=== PATIENT | female | born 1950 | race Caucasian/White ===

== ENCOUNTER 2017-01-31 06:28 | Emergency (ER) | payer MEDICARE ==
[2017-01-31] MEDS ORDERED: HYDROMORPHONE HCL INJ/PF 2 MG/ML AMPULE IV ONE (08:44)
[2017-01-31] MEDS ORDERED: DIAZEPAM 2 MG TABLET PO ONE (08:45)
--- NOTE | 2017-01-31 08:45 | ER Document Report ---
ED General - General Chief Complaint: Leg Pain Stated Complaint: LEFT SIDE PAIN Time Seen by Provider: 01/31/17 07:46 Mode of Arrival: Ambulatory Information source: Patient Notes: 66-year-old female history of paroxysmal sinus tachycardia presents with complaints of left hip pain. Patient notes that she has been ambulating all day yesterday this morning she had severe pain in her groin pain down her leg. Patient denies any other ocncerns. admits ot hx of edema in the lwoer extremities TRAVEL OUTSIDE OF THE [place] IN LAST 30 DAYS: No - HPI Onset: Just prior to arrival Onset/Duration: Sudden Quality of pain: Sharp Severity: Moderate Pain Level: 2 Associated symptoms: Body/muscle aches, Leg swelling Exacerbated by: Movement Relieved by: Denies Similar symptoms previously: No Recently seen / treated by doctor: No - Related Data Allergies/Adverse Reactions: No Known Allergies Allergy (Verified 01/31/17 08:21) Home Medications: Current Home Medications Ergocalciferol (Vitamin D2) [Vitamin D] 400 unit PO DAILY 01/31/17 [History] Ferrous Sulfate [Iron] 325 mg PO DAILY 01/31/17 [History] Furosemide [Furosemide] 40 mg PO DAILY 01/31/17 [History] Melatonin/Pyridoxine HCl (B6) [Melatonin 5 mg Tablet] 1 each PO QHS 01/31/17 [ History] Past Medical History - Social History Smoking Status: Never Smoker Cigarette use (# per day): No Chew tobacco use (# tins/day): No Smoking Education Provided: No Frequency of alcohol use: None Drug Abuse: None Family History: Arthritis, DM, Hyperlipidemia, Hypertension, Malignancy Patient has suicidal ideation: No Patient has homicidal ideation: No - Past Medical History Cardiac Medical History: Reports: Hx Coronary Artery Disease, Hx Hypercholesterolemia, Hx Hypertension Denies: Hx Heart Attack Pulmonary Medical History: Denies: Hx Asthma, Hx Bronchitis, Hx COPD, Hx Pneumonia Neurological Medical History: Denies: Hx Cerebrovascular Accident, Hx Seizures Endocrine Medical History: Reports: Hx Diabetes Mellitus Type 2 Renal/ Medical History: Denies: Hx Peritoneal Dialysis Musculoskeltal Medical History: Reports Hx Arthritis - NECK, BACK, Reports Hx Musculoskeletal Deformity, Reports Hx Musculoskeletal Trauma Past Surgical History: Reports: Hx Appendectomy, Hx Breast Surgery - left lumpectomy. Denies: Hx Hysterectomy - Immunizations Hx Diphtheria, Pertussis, Tetanus Vaccination: Yes - 2006 Review of Systems - Review of Systems Notes: REVIEW OF SYSTEMS: CONSTITUTIONAL : Denies fever, chills, or sweats. Denies recent illness. EENT: Denies eye, ear, throat, or mouth pain or symptoms. Denies nasal or sinus congestion or discharge. Denies throat, tongue, or mouth swelling or difficulty swallowing. CARDIOVASCULAR: Admits irregular heart rate admits to chronic edema of the lower extremities RESPIRATORY: Denies cough, cold, or chest congestion. Denies shortness of breath, difficulty breathing, or wheezing. GASTROINTESTINAL: Denies abdominal pain or distention. Denies nausea, vomiting , or diarrhea. Denies blood in vomitus, stools, or per rectum. Denies black, tarry stools. Denies constipation. GENITOURINARY: Denies difficulty urinating, painful urination, burning, frequency, blood in urine, or discharge. FEMALE GENITOURINARY: Denies vaginal bleeding, heavy or abnormal periods, irregular periods. Denies vaginal discharge or odor. MUSCULOSKELETAL: Admits to left hip pain SKIN: Denies rash, lesions or sores. HEMATOLOGIC : Denies easy bruising or bleeding. LYMPHATIC: Denies swollen, enlarged glands. NEUROLOGICAL: Denies confusion or altered mental status. Denies passing out or loss of consciousness. Denies dizziness or lightheadedness. Denies headache. Denies weakness or paralysis or loss of use of either side. Denies problems with gait or speech. Denies sensory loss, numbness, or tingling. Denies seizures. PSYCHIATRIC: Denies anxiety or stress. Denies depression, suicidal ideation, or homicidal ideation. ALL OTHER SYSTEMS REVIEWED AND NEGATIVE. PHYSICAL EXAMINATION: GENERAL: Well-appearing, well-nourished and in no acute distress. HEAD: Atraumatic, normocephalic. EYES: Pupils equal round and reactive to light, extraocular movements intact, conjunctiva are normal. ENT: Nares patent, oropharynx clear without exudates. Moist mucous membranes. NECK: Normal range of motion, supple without lymphadenopathy LUNGS: Breath sounds clear to auscultation bilaterally and equal. No wheezes rales or rhonchi. HEART: Regular rate and rhythm without murmurs ABDOMEN: Soft, nontender, nondistended abdomen. No guarding, no rebound. No masses appreciated. Female : deferred Musculoskeletal: +3 pitting edema bilateral lower extremities patient unable to flex or extend her left hip due to pain NEUROLOGICAL: Cranial nerves grossly intact. Normal speech, normal gait. Normal sensory, motor exams PSYCH: Normal mood, normal affect. SKIN: Warm, Dry, normal turgor, no rashes or lesions noted. Dictation was performed using [employer] voice recognition software Physical Exam - Vital signs Vitals: Temp Pulse Resp BP Pulse Ox 97.4 F 69 18 158/71 H 99 01/31/17 06:31 01/31/17 06:31 01/31/17 06:31 01/31/17 06:31 01/31/17 06:31 Course - Re-evaluation Re-evalutation: 01/31/17 08:45 Patient has probable hip pain secondary to ambulating all day yesterday however given the edema history of irregular heart rate and ultrasound is appropriate for rule out DVT 01/31/17 12:08 X-ray noted no significant abnormality, Doppler was negative. Patient noted to have mild renal insufficiency mild anemia, reports have been given to the patient. Otherwise it appears the pain only worsens with movement. Patient will be given follow-up instructions with primary care physician in stable for discharge After performing a Medical Screening Examination, I estimate there is LOW risk for INTRACRANIAL HEMORRHAGE, UNSTABLE SPINE FRACTURE, CENTRAL CORD SYNDROME, CAUDA EQUINA, THORACIC AORTIC DISSECTION, PNEUMOTHORAX, PERFORATED BOWEL, RUPTURED ABDOMINAL AORTIC ANEURYSM, ACUTE TENDON RUPTURE, COMPARTMENT SYNDROME, or OPEN FRACTURE, thus I consider the discharge disposition reasonable. Also, there is no evidence or peritonitis, sepsis, or toxicity. I have reevaluated this patient multiple times and no significant life threatening changes are noted. The patient and I have discussed the diagnosis and risks, and we agree with discharging home to follow-up with their primary doctor with the understanding that symptoms and presentations can change. We also discussed returning to the Emergency Department immediately if new or worsening symptoms occur. We have discussed the symptoms which are most concerning (e.g., bloody stool, fever, changing or worsening pain, vomiting) that necessitate immediate return. - Vital Signs Vital signs: Temp Pulse Resp BP Pulse Ox 97.4 F 69 18 158/71 H 99 01/31/17 06:31 01/31/17 06:31 01/31/17 06:31 01/31/17 06:31 01/31/17 06:31 - Laboratory Result Diagrams: 01/31/17 08:39 01/31/17 08:39 Laboratory results interpreted by me: 01/31/17 01/31/17 08:39 08:39 RBC 3.44 L Hgb 9.2 L Hct 27.6 L MCH 26.6 L RDW 15.8 H BUN 68 H Creatinine 1.89 H Est GFR ( Amer) 32 L Est GFR (Non-Af Amer) 27 L Glucose 131 H AST 12 L Digoxin 0.65 L - Diagnostic Test Radiology reviewed: Image reviewed, Reports reviewed Discharge - Discharge Clinical Impression: Acute renal insufficiency Hip pain Qualifiers: Laterality: left Qualified Code(s): M25.552 - Pain in left hip Anemia Qualifiers: Anemia type: other cause Other causes of anemia: other cause, not classified Qualified Code(s): D64.89 - Other specified anemias Condition: Stable Disposition: HOME, SELF-CARE Instructions: Anemia ([facility]), Kidney Function Abnormality ([facility]) Prescriptions: Diazepam [Valium 5 mg Tablet] 5 mg PO QIDP PRN #15 tablet PRN Reason: Oxycodone HCl/Acetaminophen [Percocet 5-325 mg Tablet] 1 - 2 tab PO Q4H PRN #15 tablet PRN Reason: Referrals: COLT MINOR PA-C [Primary Care Provider] - Follow up tomorrow
[2017-01-31 08:53] LABS: ABSOLUTE BASOPHILS # (AUTO) 0.1 10^3/uL (0.0-0.2); ABSOLUTE EOSINOPHILS # (AUTO) 0.2 10^3/uL (0.0-0.6); ABSOLUTE LYMPHOCYTES (AUTO) 1.3 10^3/uL (0.5-4.7); ABSOLUTE MONOCYTES (AUTO) 0.7 10^3/uL (0.1-1.4); ABSOLUTE NEUT (AUTO) 6.9 10^3/uL (1.7-8.2); BASOPHILS % (AUTO) 0.8 % (0-2); EOSINOPHILS % (AUTO) 1.7 % (0-6); HEMATOCRIT 27.6 % (36.0-47.0); HEMOGLOBIN 9.2 g/dL (12.0-15.5); LYMPHOCYTES % (AUTO) 14.5 % (13-45); MEAN CORPUSCULAR HEMOGLOBIN 26.6 pg (27.0-33.4); MEAN CORPUSCULAR HGB CONC 33.2 g/dL (32.0-36.0); MEAN CORPUSCULAR VOLUME 80 fl (80-97); MONOCYTES % (AUTO) 7.9 % (3-13); RED BLOOD COUNT 3.44 10^6/uL (3.72-5.28); RED CELL DISTRIBUTION WIDTH 15.8 % (11.5-14.0); SEGMENTED NEUTROPHILS % (AUTO) 75.1 % (42-78); WHITE BLOOD COUNT 9.2 10^3/uL (4.0-10.5)
[2017-01-31 09:13] LABS: ALANINE AMINOTRANSFERASE 20 U/L (9-52); ALBUMIN 3.7 g/dL (3.5-5.0); ALKALINE PHOSPHATASE 91 U/L (38-126); ANION GAP 12 (5-19); ASPARTATE AMINO TRANSFERASE 12 U/L (14-36); BILIRUBIN,DIRECT 0.3 mg/dL (0.0-0.4); BILIRUBIN,TOTAL 0.4 mg/dL (0.2-1.3); BLOOD UREA NITROGEN 68 mg/dL (7-20); CALCIUM 9.2 mg/dL (8.4-10.2); CARBON DIOXIDE 27 mmol/L (22-30); CHLORIDE 99 mmol/L (98-107); CREATININE RESULT 1.89 mg/dL (0.52-1.25); DIGOXIN 0.65 ng/mL (0.8-2.0); GLUCOSE 131 mg/dL (75-110); POTASSIUM 4.1 mmol/L (3.6-5.0); SODIUM 137.5 mmol/L (137-145); TOTAL PROTEIN 6.8 g/dL (6.3-8.2)
--- NOTE | 2017-01-31 09:14 | RADIOLOGY REPORT (SQ) ---
EXAM DESCRIPTION: HIP LEFT AP/LATERAL COMPLETED DATE/TIME: 01/31/2017 9:06 am REASON FOR STUDY: hip pain COMPARISON: None. NUMBER OF VIEWS: Two views. TECHNIQUE: AP pelvis and additional frog-leg view of the left hip. LIMITATIONS: None. FINDINGS: MINERALIZATION: Normal. LEFT HIP: No fracture or dislocation. No worrisome bone lesions. RIGHT HIP: No fracture or dislocation. No worrisome bone lesions. PUBIS AND ISCHIUM: No fracture. PELVIS: No fracture. SACRUM: No fracture or dislocation. No worrisome bone lesions. LOWER LUMBAR SPINE: No fracture or dislocation. No worrisome bone lesions. No significant disc disea se. SOFT TISSUES: No findings. OTHER: No other significant finding. IMPRESSION: NEGATIVE STUDY OF THE LEFT HIP AND PELVIS. NO RADIOGRAPHIC EVIDENCE OF ACUTE INJURY. TECHNICAL DOCUMENTATION: JOB ID: [id number] [employer]- All Rights Reserved
[2017-01-31] MEDS ORDERED: NORMAL SALINE 1000 ML 1,000 ML IV ONE (10:54)
[2017-01-31] MEDS ORDERED: KETOROLAC TROMETHAMINE INJ/PF 30 MG/1 ML SDV IV ONE (12:08)
[2017-01-31 12:37] VITALS: BP 153/64
--- NOTE | 2017-01-31 18:49 | XCELERA REPORT ---
[address] [address] Lower Extremity Venous Evaluation Name: ARUNA ALLEN Age: 66 yrs Gender: Female : 1950 Patient Status: Emergency Patient Location: ER Study Date: 01/31/2017 10:35 AM Procedure: Color flow and duplex imaging of the veins of the left lower extremity as well as the right Common Femoral vein. Reason For Study: left leg pain Ordering Physician: CHAN JARVIS Performed By: Salena Zhang Right Sided Venous Evaluation The right common femoral vein is fully compressible. Spontaneous and phasic flow is present in the right common femoral vein. Left Sided Venous Evaluation Normal vessel filling wall to wall, compression and augmentation as well as Colour flow down to the infrageniculate veins. Critical Findings Called in to the ER. Interpretation Summary No duplex evidence of DVT or obstruction in the left lower extremity nor in the right Common Femoral vein. : CHAN JARVIS > Samy Huerta
== END 2017-01-31 12:28 | disposition home or self-care (01) ==
LOC: ER 06:28
DX: M25.552 Pain in left hip (principal); N28.9 Disorder of kidney and ureter, unspecified; R00.0 Tachycardia, unspecified; M79.605 Pain in left leg; I25.10 Atherosclerotic heart disease of native coronary artery without angina pectoris; I10 Essential (primary) hypertension; E78.00 Pure hypercholesterolemia, unspecified; E11.9 Type 2 diabetes mellitus without complications; M19.90 Unspecified osteoarthritis, unspecified site; Z90.49 Acquired absence of other specified parts of digestive tract; Z82.61 Family history of arthritis; Z83.3 Family history of diabetes mellitus; Z80.9 Family history of malignant neoplasm, unspecified; Z82.49 Family history of ischemic heart disease and other diseases of the circulatory system; D64.89 Other specified anemias; R60.9 Edema, unspecified
CPT/HCPCS: 99284; 96374; 96375; 36415; 80162; 85025; 80053; 93971 ×2; 73502; A9270; J1885; J1170; J7030; J3490

== ENCOUNTER → 2017-09-25 | Outpatient (CLI) | payer MEDICARE ==
--- NOTE | 2017-09-25 14:54 | WOMENS IMAGING REPORT ---
EXAM DESCRIPTION: 3D SCREENING MAMMO BILAT COMPLETED DATE/TIME: 09/25/2017 2:40 pm REASON FOR STUDY: ROUTINE SCREENING;Z12.31 Z12.31 ENCNTR SCREEN MAMMOGRAM FOR MALIGNANT NEOPLASM OF MICHAEL COMPARISON: None. TECHNIQUE: Standard craniocaudal and mediolateral oblique views of each breast recorded using digita l acquisition and breast tomosynthesis. LIMITATIONS: None. FINDINGS: RIGHT BREAST MASSES: No suspicious masses. CALCIFICATIONS: No new or suspicious calcifications. ARCHITECTURAL DISTORTION: None. DEVELOPING DENSITY: None. ASYMMETRY: None noted. OTHER: No other significant findings. LEFT BREAST MASSES: No suspicious masses. CALCIFICATIONS: No new or suspicious calcifications. ARCHITECTURAL DISTORTION: None. DEVELOPING DENSITY: Small vague density in the superior breast, located 4.5 to 6 cm from the nipple. Indistinct appearance on tomosynthesis images. ASYMMETRY: None noted. OTHER: No other significant findings. Read with the assistance of CAD. .[facility] - R2 Cenova Version 1.3 .[facility] Imaging - R2 Cenova Version 1.3 .[facility] - R2 Cenova Version 2.4 .[facility] - R2 Cenova Version 2.4 .[facility] - R2 [employer]ician Version 9.2 IMPRESSION: Small vague density in the superior left breast. No worrisome mammographic findings in the right breast. BREAST DENSITY: b. There are scattered areas of fibroglandular density. BIRAD: 0 Incomplete: Needs Additional Imaging Evaluation and/or prior Mammograms for Comparison. RECOMMENDATION: RECOMMENDED FOLLOW-UP: Recommend additional evaluation with compression breast tomos ynthesis views of the left breast and ultrasound of the left breast. Recommend routine screening khanh mography of the right breast. The patient will be contacted for additional imaging. COMMENT: The patient has been notified of the results by letter per SA requirements. Additional no tification policies are in place for contacting patient with suspicious or incomplete findings. Quality ID #225: The [employer] recommends an annual screening mammogram for women aged 40 years or over. This facility utilizes a reminder system to ensure that all patients receive reminder letters, and/or direct phone calls for appointments. This includes reminders for routine scr eening mammograms, diagnostic mammograms, or other Breast Imaging Interventions when appropriate. Th is patient will be placed in the appropriate reminder system. The [employer] (ACR) has developed recommendations for screening MRI of the breast s in certain patient populations, to be used in conjunction with mammography. Breast MRI surveillanc e may be appropriate for women with more than 20% lifetime risk of developing breast cancer as deter mined by genetic testing, significant family history of the disease, or history of mantle radiation f or Hodgkins Disease. ACR Practice Guidelines 2008. DBT Technology DBT is a type of tomographic mammography. With conventional mammography, overlapping breast tissue ma y make lesions difficult to detect, even with good compression. DBT uses an x-ray tube that rotates a round the breast, taking images at different angles. These images are then combined to create thin sl ices of the breast that the radiologist can view as a 3D reconstruction. The [facility] unit can perform full-field digital mammograms (2D imaging); or DBT (3D imaging); or both, in a combination mode that quickly performs both the mammogram and the tomosynthesis scan while the breast is still compressed. PQRS 6045F: Fluoroscopic imaging is not utilized for breast tomosynthesis. TECHNICAL DOCUMENTATION: FINDING NUMBER: (1) ASSESSMENT: (1) JOB ID: [id number] [employer]- All Rights Reserved Reading location - IP/workstation name: [email or web address]
== END ==
LOC: WI 14:07
PROVIDERS: ATTEND Physician Assistant Medical
DX: Z12.31 Encounter for screening mammogram for malignant neoplasm of breast (principal)
CPT/HCPCS: 77063; 77067

== ENCOUNTER → 2017-10-05 | Outpatient (CLI) | payer MEDICARE ==
--- NOTE | 2017-10-05 10:41 | WOMENS IMAGING REPORT ---
EXAM DESCRIPTION: LEFT DIAGNOSTIC MAMMO W/CAD COMPLETED DATE/TIME: 10/05/2017 9:56 am REASON FOR STUDY: INCONCLUSIVE; R92.2 R92.2 INCONCLUSIVE MAMMOGRAM COMPARISON: 09/25/2017 TECHNIQUE: True lateral and cone compression views. LIMITATIONS: None. FINDINGS: BREAST: left MASSES: No suspicious masses. CALCIFICATIONS: No new or suspicious calcifications. ARCHITECTURAL DISTORTION: None. DEVELOPING DENSITY: None. ASYMMETRY: None noted. OTHER: No other significant findings. IMPRESSION: No evidence of malignancy. BREAST DENSITY: b. There are scattered areas of fibroglandular density. BIRAD: 1 Negative. RECOMMENDATION: RECOMMENDED FOLLOW UP: Birads 1 or 2: The patient should resume routine screening . SPECIFIC INTERVENTION/IMAGING/CONSULTATION RECOMMENDED:No additional intervention/ imaging/consultati on needed at this time. COMMUNICATION:The imaging findings were not discussed with the patient. Her referring provider has be en notified of the findings. COMMENT: The patient has been notified of the results by letter per SA requirements. Additional no tification policies are in place for contacting patient with suspicious or incomplete findings. Quality ID #225: The [employer] recommends an annual screening mammogram for women aged 40 years or over. This facility utilizes a reminder system to ensure that all patients receive reminder letters, and/or direct phone calls for appointments. This includes reminders for routine scr eening mammograms, diagnostic mammograms, or other Breast Imaging Interventions when appropriate. Th is patient will be placed in the appropriate reminder system. The [employer] (ACR) has developed recommendations for screening MRI of the breast s in certain patient populations, to be used in conjunction with mammography. Breast MRI surveillanc e may be appropriate for women with more than 20% lifetime risk of developing breast cancer as deter mined by genetic testing, significant family history of the disease, or history of mantle radiation f or Hodgkins Disease. ACR Practice Guidelines 2008. TECHNICAL DOCUMENTATION: FINDING NUMBER: (1) ASSESSMENT: (1) JOB ID: [id number] [employer]- All Rights Reserved Reading location - IP/workstation name: [facility]
== END ==
LOC: WI 09:37
PROVIDERS: ATTEND Physician Assistant
DX: R92.2 Inconclusive mammogram (principal)

== ENCOUNTER 2018-02-16 06:42 | Day surgery (SDC) | payer MEDICARE ==
[~2018-02-16 06:42] MED LIST: BESIFLOXACIN HCL 0.6% OPH SUSP 5 ML BOTTLE OS PRN; BUPIVACAINE HCL 0.75% INJ/PF (7.5 MG/1 ML) 10 ML SDV OS PRN; CYCLOPENTOLATE 0.2%/PHENYLEPHRINE 1% OPH SOLN 2 ML OS PRN; FENTANYL CITRATE INJ/PF 100 MCG/2 ML AMPUL ONE; KETOROLAC TROMETHAMINE 0.45% 4 DROP/0.4 ML DROPERETTE OS PRN; LIDOCAINE 4% INJ/PF (40 MG/ML) 5 ML AMPUL OS PRN; MIDAZOLAM 2 MG/2 ML INJ ONE; TETRACAINE HCL 0.5% OPH SOLN 0.6 ML DROPERETTE OS PRN; TROPICAMIDE 1% OPH SOLN 3 ML OS PRN
[2018-02-16] MEDS: TROPICAMIDE 1% OPH SOLN 3 ML OS PRN ×3 (06:55→07:37)
[2018-02-16] MEDS: CYCLOPENTOLATE 0.2%/PHENYLEPHRINE 1% OPH SOLN 2 ML OS PRN ×3 (06:55→07:37)
[2018-02-16] MEDS: BESIFLOXACIN HCL 0.6% OPH SUSP 5 ML BOTTLE OS PRN ×4 (06:56→08:32)
[2018-02-16] MEDS: TETRACAINE HCL 0.5% OPH SOLN 0.6 ML DROPERETTE OS PRN ×2 (06:57→07:44)
[2018-02-16] MEDS: BUPIVACAINE HCL 0.75% INJ/PF (7.5 MG/1 ML) 10 ML SDV OS PRN ×2 (08:11)
[2018-02-16] MEDS: LIDOCAINE 4% INJ/PF (40 MG/ML) 5 ML AMPUL OS PRN ×2 (08:11)
[2018-02-16] MEDS: EPINEPHRINE INJ/PF 1 MG/1 ML AMPULE ONE ×2 (08:20)
[2018-02-16] MEDS: LIDOCAINE 1%/PHENYLEPHRINE 1.5% 1 ML VIAL ONE ×2 (08:23)
[2018-02-16] MEDS: CHONDR SU A NA/HYALUR INTRAOC KIT (SURGICARE) ONE ×2 (08:25)
--- NOTE | 2018-02-16 11:50 | [facility] OPERATIVE REPORT E ---
[facility] NAME: ARUNA ALLNE AGE: 67Y DATE OF SURGERY: 02/16/2018 ROOM: [facility] Operative Report PREOPERATIVE DIAGNOSIS: CATARACT, LEFT EYE. POSTOPERATIVE DIAGNOSIS: CATARACT, LEFT EYE. PROCEDURE PERFORMED: PHACOEMULSIFICATION WITH POSTERIOR CHAMBER INTRAOCULAR LENS, LEFT EYE. SURGEON: JAMESON TRUONG MD ANESTHESIA: TOPICAL WITH MAC. INDICATIONS FOR SURGERY: Difficulty driving at night. Best corrected visual acuity 20/50. PROCEDURE: The patient was brought to the Operating Room and placed on the operative table. Following tetracaine drops, topical anesthesia was administered. This consisted of instrument wipe pledgets soaked in a solution of 4% Xylocaine mixed with 0.75% Marcaine in a 1:2 ratio. A 2 x 1 cm pledget was placed in the superior fornix. A 1 x 1 cm pledget was placed in the inferior fornix. The eye was patched shut for 5 minutes. The patch was removed. The eye was sterilely prepped and draped in the usual manner. Lid speculum was placed in the eye. The pledgets were removed. 4-0 black silk sutures were placed around the superior and the inferior rectus muscles to be used as traction. A conjunctival peritomy was made at the 10 o'clock position. Hemostasis was obtained with bipolar cautery. A posterior limbal groove was created using a crescent knife and dissected anteriorly towards the cornea. A sharp point blade was used to create a paracentesis site at the 2 o'clock position. A 2.4 mm keratome was used to enter the anterior chamber through the groove. Viscoelastic was injected into the anterior chamber. An anterior capsulotomy was performed using Utrata forceps in a capsulorrhexis fashion. Hydrodissection and hydrodelineation were performed. Phacoemulsification was performed in [id number] technique. A total of 51 seconds phaco time was used. Following this, the I/A unit was used to remove residual cortex. Viscoelastic was injected into the capsular bag. Intraocular lens model [id number], 16.5 diopters, serial number [id number] was placed in the capsular bag. The I/A unit was used to remove residual viscoelastic. The wound was seen to be watertight under high and low pressure, and no sutures were placed. The intraocular lens was well centered. The pressure was adjusted in the eye to normal pressure. The 4-0 black silk sutures and lid speculum were removed. The eye was shielded after Besivance drops were placed. The patient tolerated the procedure well and was sent to the Recovery Room in good condition. DICTATING PHYSICIAN: JAMESON TRUONG M.D. DICTATING PHYSICIAN: JAMESON TRUONG M.D. [id number] PHY#: [id number] ID: [id number] JOB#: [id number] ACCT: [id number] cc:JAMESON TRUONG M.D. >
--- NOTE | 2018-02-16 11:50 | [facility] DISCHARGE SUMMARY E ---
[facility] Discharge Summary NAME: ARUNA ALLEN AGE: 67Y ADMITTED: 02/16/2018 DISCHARGED: 02/16/2018 FINAL DIAGNOSIS: Cataract, left eye. HOSPITAL COURSE: The patient is a 67-year-old lady who underwent uneventful cataract extraction with intraocular lens implant, left eye on 02/16/2018. She will be discharged to home. She is instructed to resume preoperative medications, take Tylenol as needed for discomfort, to keep her eye shielded, to use Besivance, Durezol and Ilevro at 3 p.m. and 8 p.m., and to followup in my office in 1 day. DICTATING PHYSICIAN: JAMESON TRUONG M.D. [id number] Y#: [id number] ID: [id number] JOB#: [id number] ACCT: [id number] cc:JAMESON TRUONG M.D. >
== END 2018-02-16 09:21 | disposition home or self-care (01) ==
LOC: SC 06:42
PROVIDERS: ATTEND Ophthalmology
DX: H25.813 Combined forms of age-related cataract, bilateral (principal); E78.00 Pure hypercholesterolemia, unspecified; M19.90 Unspecified osteoarthritis, unspecified site; E11.3313 Type 2 diabetes mellitus with moderate nonproliferative diabetic retinopathy with macular edema, bilateral; H18.51 Endothelial corneal dystrophy; D63.1 Anemia in chronic kidney disease; I13.10 Hypertensive heart and chronic kidney disease without heart failure, with stage 1 through stage 4 chronic kidney disease, or unspecified chronic kidney disease; E11.22 Type 2 diabetes mellitus with diabetic chronic kidney disease; N18.4 Chronic kidney disease, stage 4 (severe); I47.1 Supraventricular tachycardia; Z79.84 Long term (current) use of oral hypoglycemic drugs; Z79.899 Other long term (current) drug therapy
CPT/HCPCS: 142; 82962; J0171; J2250; J2370; J3010; J3490; V2632

== ENCOUNTER → 2018-02-20 | Outpatient (CLI) | payer MEDICARE ==
[2018-02-20 11:02] LABS: ABSOLUTE BASOPHILS # (AUTO) 0.1 10^3/uL (0.0-0.2); ABSOLUTE EOSINOPHILS # (AUTO) 0.3 10^3/uL (0.0-0.6); ABSOLUTE MONOCYTES (AUTO) 0.5 10^3/uL (0.1-1.4); ABSOLUTE NEUT (AUTO) 4.4 10^3/uL (1.7-8.2); BASOPHILS % (AUTO) 1.3 % (0-2); EOSINOPHILS % (AUTO) 4.3 % (0-6); HEMOGLOBIN 8.6 g/dL (12.0-15.5); LYMPHOCYTES % (AUTO) 15.4 % (13-45); MEAN CORPUSCULAR HEMOGLOBIN 27.7 pg (27.0-33.4); MEAN CORPUSCULAR HGB CONC 33.1 g/dL (32.0-36.0); MEAN CORPUSCULAR VOLUME 84 fl (80-97); MONOCYTES % (AUTO) 8.3 % (3-13); PLATELET COUNT 209 10^3/uL (150-450); RED CELL DISTRIBUTION WIDTH 16.7 % (11.5-14.0); SEGMENTED NEUTROPHILS % (AUTO) 70.7 % (42-78); TOTAL CELLS COUNTED % (AUTO) 100 %; WHITE BLOOD COUNT 6.2 10^3/uL (4.0-10.5)
[2018-02-20 11:23] LABS: ANION GAP 13 (5-19); BLOOD UREA NITROGEN 66 mg/dL (7-20); CALCIUM 9.2 mg/dL (8.4-10.2); CARBON DIOXIDE 22 mmol/L (22-30); CHLORIDE 107 mmol/L (98-107); GLUCOSE 138 mg/dL (75-110); IRON(TIBC) 39.2 ug/dL (37-170); SODIUM 141.8 mmol/L (137-145)
== END ==
LOC: OD 10:07
PROVIDERS: ATTEND Internal Medicine Nephrology
DX: N17.9 Acute kidney failure, unspecified (principal); N18.9 Chronic kidney disease, unspecified; D50.9 Iron deficiency anemia, unspecified
CPT/HCPCS: 36415; 80048; 82728; 83540; 83550; 85025

== ENCOUNTER 2018-03-02 11:18 | Outpatient (CLI) | payer MEDICARE ==
[2018-03-02] MEDS ORDERED: FERRIC CARBOXYMALTOSE 750 MG in NORMAL SALINE 100 ML IV PRN (11:48)
[2018-03-02 11:58] VITALS: BP 137/63
== END 2018-03-02 14:12 | disposition home or self-care (01) ==
LOC: II 11:18 → 5TH 12:19 → II 14:12
PROVIDERS: ATTEND Internal Medicine Nephrology
PROC: 3E033GC Introduction of Other Therapeutic Substance into Peripheral Vein, Percutaneous Approach (ICD-10-PCS; principal; 2018-03-02)
DX: D50.9 Iron deficiency anemia, unspecified (principal); N18.4 Chronic kidney disease, stage 4 (severe)
CPT/HCPCS: 96365; J1439

== ENCOUNTER 2018-03-09 12:40 | Outpatient (CLI) | payer MEDICARE ==
[~2018-03-09 12:40] MED LIST changes: -BESIFLOXACIN HCL 0.6% OPH SUSP 5 ML BOTTLE OS PRN; -BUPIVACAINE HCL 0.75% INJ/PF (7.5 MG/1 ML) 10 ML SDV OS PRN; -CYCLOPENTOLATE 0.2%/PHENYLEPHRINE 1% OPH SOLN 2 ML OS PRN; -FENTANYL CITRATE INJ/PF 100 MCG/2 ML AMPUL ONE; +FERRIC CARBOXYMALTOSE 750 MG in NORMAL SALINE 100 ML IV PRN; -KETOROLAC TROMETHAMINE 0.45% 4 DROP/0.4 ML DROPERETTE OS PRN; -LIDOCAINE 4% INJ/PF (40 MG/ML) 5 ML AMPUL OS PRN; -MIDAZOLAM 2 MG/2 ML INJ ONE; -TETRACAINE HCL 0.5% OPH SOLN 0.6 ML DROPERETTE OS PRN; -TROPICAMIDE 1% OPH SOLN 3 ML OS PRN
[2018-03-09 13:08] VITALS: BP 153/76
== END 2018-03-09 14:08 | disposition home or self-care (01) ==
LOC: 5TH 12:40 → II 12:40
PROVIDERS: ATTEND Internal Medicine Nephrology
PROC: 3E033GC Introduction of Other Therapeutic Substance into Peripheral Vein, Percutaneous Approach (ICD-10-PCS; principal; 2018-03-09)
DX: D50.9 Iron deficiency anemia, unspecified (principal); N18.4 Chronic kidney disease, stage 4 (severe)
CPT/HCPCS: 96367; J1439; 96365

== ENCOUNTER 2018-03-16 07:14 | Day surgery (SDC) | payer MEDICARE ==
[~2018-03-16 07:14] MED LIST changes: +BESIFLOXACIN HCL 0.6% OPH SUSP 5 ML BOTTLE OD PRN; +BUPIVACAINE HCL 0.75% INJ/PF (7.5 MG/1 ML) 10 ML SDV OD PRN; +CYCLOPENTOLATE 0.2%/PHENYLEPHRINE 1% OPH SOLN 2 ML OD PRN; -FERRIC CARBOXYMALTOSE 750 MG in NORMAL SALINE 100 ML IV PRN; +KETOROLAC TROMETHAMINE 0.45% 4 DROP/0.4 ML DROPERETTE OD PRN; +LIDOCAINE 4% INJ/PF (40 MG/ML) 5 ML AMPUL OD PRN; +TETRACAINE HCL 0.5% OPH SOLN 0.6 ML DROPERETTE OD PRN; +TROPICAMIDE 1% OPH SOLN 3 ML OD PRN
[2018-03-16] MEDS ORDERED: EPINEPHRINE INJ/PF 1 MG/1 ML AMPULE ONE (07:49)
[2018-03-16] MEDS: BESIFLOXACIN HCL 0.6% OPH SUSP 5 ML BOTTLE OD PRN ×4 (07:49→08:52)
[2018-03-16] MEDS: TROPICAMIDE 1% OPH SOLN 3 ML OD PRN ×3 (07:49→08:09)
[2018-03-16] MEDS: CYCLOPENTOLATE 0.2%/PHENYLEPHRINE 1% OPH SOLN 2 ML OD PRN ×3 (07:49→08:09)
[2018-03-16] MEDS ORDERED: LIDOCAINE 1% INJ-PF (10 MG/ML) 30 ML SDV ONE (07:49)
[2018-03-16] MEDS ORDERED: CHONDR SU A NA/HYALUR INTRAOC KIT (SURGICARE) ONE (07:49)
[2018-03-16] MEDS: TETRACAINE HCL 0.5% OPH SOLN 0.6 ML DROPERETTE OD PRN ×2 (07:50→08:09)
[2018-03-16] MEDS ORDERED: MIDAZOLAM 2 MG/2 ML INJ ONE (08:11)
[2018-03-16] MEDS ORDERED: FENTANYL CITRATE INJ/PF 100 MCG/2 ML AMPUL ONE (08:12)
--- NOTE | 2018-03-16 13:09 | [facility] OPERATIVE REPORT E ---
[facility] Operative Report NAME: ARUNA ALLEN AGE: 67Y DATE OF SURGERY: 03/16/2018 ROOM: PREOPERATIVE DIAGNOSIS: Cataract, right eye. POSTOPERATIVE DIAGNOSIS: Cataract, right eye. PROCEDURE PERFORMED: Phacoemulsification with posterior chamber intraocular lens, right eye. SURGEON: JAMESON TRUONG M.D. ANESTHESIA: Topical with MAC. PROCEDURE: The patient was brought to the Operating Room and placed on the operative table. Following tetracaine drops, topical anesthesia was administered. This consisted of instrument wipe pledgets soaked in a solution of 4% Xylocaine mixed with 0.75% Marcaine in a 1:2 ratio. A 2 x 1 cm pledget was placed in the superior fornix. A 1 x 1 cm pledget was placed in the inferior fornix. The eye was patched shut for 5 minutes. The patch was removed. The eye was sterilely prepped and draped in the usual manner. Lid speculum was placed in the eye. The pledgets were removed. 4-0 black silk sutures were placed around the superior and the inferior rectus muscles to be used as traction. A conjunctival peritomy was made at the 10 o'clock position. Hemostasis was obtained with bipolar cautery. A posterior limbal groove was created using a crescent knife and dissected anteriorly towards the cornea. A sharp point blade was used to create a paracentesis site at the 2 o'clock position. A 2.4 mm keratome was used to enter the anterior chamber through the groove. Viscoelastic was injected into the anterior chamber. An anterior capsulotomy was performed using Utrata forceps in a capsulorrhexis fashion. Hydrodissection and hydrodelineation were performed. Phacoemulsification was performed in [id number]-nyuzoqm technique. A total of 1 minute 14 seconds phaco time was used. Following this, the I/A unit was used to remove residual cortex. Viscoelastic was injected into the capsular bag. Intraocular lens model [id number], 16.5 diopters, serial number [id number] was placed in the capsular bag. The I/A unit was used to remove residual viscoelastic. The wound was seen to be watertight under high and low pressure, and no sutures were placed. The intraocular lens was well centered. The pressure was adjusted in the eye to normal pressure. The 4-0 black silk sutures and lid speculum were removed. The eye was shielded after Besivance drops were placed. The patient tolerated the procedure well and was sent to the Recovery Room in good condition. DICTATING PHYSICIAN: JAMESON TRUONG M.D. [id number] PHY#: [id number] ID: [id number] JOB#: [id number] ACCT: [id number] cc:JAMESON TRUONG M.D. >
--- NOTE | 2018-03-16 13:09 | [facility] DISCHARGE SUMMARY E ---
[facility] Discharge Summary NAME: ARUNA ALLEN AGE: 67Y ADMITTED: 03/16/2018 DISCHARGED: 03/16/2018 HOSPITAL COURSE: The patient is a 67-year-old lady who underwent uneventful cataract extraction with intraocular lens implant right eye on 03/16/2018. She will be discharged to home. She is instructed to resume preoperative medications, to take Tylenol as needed for discomfort, to keep her eye shielded, to use Vigamox, ketorolac, and Predforte at 3 p.m. and 8 p.m., and to follow up in my office in 1 day. DICTATING PHYSICIAN: JAMESON TRUONG M.D. [id number] PHY#: [id number] ID: [id number] JOB#: [id number] ACCT: [id number] cc:JAMESON TRUONG M.D. >
== END 2018-03-16 09:45 | disposition home or self-care (01) ==
LOC: SC 07:14
PROVIDERS: ATTEND Ophthalmology
DX: H25.811 Combined forms of age-related cataract, right eye (principal); Z96.1 Presence of intraocular lens; I12.9 Hypertensive chronic kidney disease with stage 1 through stage 4 chronic kidney disease, or unspecified chronic kidney disease; E11.22 Type 2 diabetes mellitus with diabetic chronic kidney disease; N18.4 Chronic kidney disease, stage 4 (severe); R01.1 Cardiac murmur, unspecified; D63.1 Anemia in chronic kidney disease; I47.1 Supraventricular tachycardia; E66.9 Obesity, unspecified; Z68.38 Body mass index [BMI] 38.0-38.9, adult; Z79.4 Long term (current) use of insulin; Z79.84 Long term (current) use of oral hypoglycemic drugs; Z79.899 Other long term (current) drug therapy
CPT/HCPCS: 66984; 82962; V2632; J2250; J3490 ×4; A9270; J0171; J3010

== ENCOUNTER → 2018-04-14 | Outpatient (CLI) | payer MEDICARE ==
[2018-04-14 14:45] LABS: ABSOLUTE BASOPHILS # (AUTO) 0.1 10^3/uL (0.0-0.2); ABSOLUTE EOSINOPHILS # (AUTO) 0.1 10^3/uL (0.0-0.6); ABSOLUTE LYMPHOCYTES (AUTO) 0.9 10^3/uL (0.5-4.7); ABSOLUTE MONOCYTES (AUTO) 0.4 10^3/uL (0.1-1.4); ABSOLUTE NEUT (AUTO) 3.9 10^3/uL (1.7-8.2); EOSINOPHILS % (AUTO) 2.2 % (0-6); HEMATOCRIT 27.9 % (36.0-47.0); HEMOGLOBIN 9.2 g/dL (12.0-15.5); LYMPHOCYTES % (AUTO) 16.6 % (13-45); MEAN CORPUSCULAR HEMOGLOBIN 27.8 pg (27.0-33.4); MEAN CORPUSCULAR HGB CONC 32.9 g/dL (32.0-36.0); MEAN CORPUSCULAR VOLUME 85 fl (80-97); MONOCYTES % (AUTO) 6.8 % (3-13); PLATELET COUNT 192 10^3/uL (150-450); RED CELL DISTRIBUTION WIDTH 15.2 % (11.5-14.0); SEGMENTED NEUTROPHILS % (AUTO) 73.4 % (42-78); TOTAL CELLS COUNTED % (AUTO) 100 %; WHITE BLOOD COUNT 5.2 10^3/uL (4.0-10.5)
[2018-04-14 14:52] LABS: APPEARANCE,URINE CLEAR; BILIRUBIN,URINE NEGATIVE (NEGATIVE); COLOR,URINE STRAW; GLUCOSE, URINE >=500 mg/dL (NEGATIVE); KETONES,URINE NEGATIVE (NEGATIVE); LEUKOCYTE ESTERASE,URINE SMALL (NEGATIVE); NITRITE,URINE NEGATIVE (NEGATIVE); PROTEIN,URINE >=500 mg/dL (NEGATIVE); URINE SPECIFIC GRAVITY 1.009; UROBILINOGEN,URINE NEGATIVE mg/dL (<2.0)
[2018-04-14 15:14] LABS: ALBUMIN 3.3 g/dL (3.5-5.0); ANION GAP 13 (5-19); BLOOD UREA NITROGEN 92 mg/dL (7-20); CALCIUM 8.9 mg/dL (8.4-10.2); CARBON DIOXIDE 24 mmol/L (22-30); CHLORIDE 101 mmol/L (98-107); GLUCOSE 345 mg/dL (75-110); PHOSPHORUS 7.8 mg/dL (2.5-4.5); SODIUM 137.5 mmol/L (137-145)
[2018-04-14 15:30] LABS: URINE CREATININE 37.8 mg/dL (15-278)
[2018-04-14 15:34] LABS: UR PRO/CREAT RATIO RESULT 14.8 mg/mg (0.0-0.2)
== END ==
LOC: OD 14:12
PROVIDERS: ATTEND Internal Medicine Nephrology
DX: N18.5 Chronic kidney disease, stage 5 (principal); D63.1 Anemia in chronic kidney disease; E55.9 Vitamin D deficiency, unspecified; N25.81 Secondary hyperparathyroidism of renal origin
CPT/HCPCS: 36415; 80048; 81001; 82040; 82306; 82570; 83970; 84100; 84156; 85025

== ENCOUNTER → 2018-04-29 | Outpatient (CLI) | payer MEDICARE ==
[2018-04-29 13:22] LABS: ABSOLUTE BASOPHILS # (AUTO) 0.1 10^3/uL (0.0-0.2); ABSOLUTE EOSINOPHILS # (AUTO) 0.1 10^3/uL (0.0-0.6); ABSOLUTE LYMPHOCYTES (AUTO) 1.1 10^3/uL (0.5-4.7); ABSOLUTE MONOCYTES (AUTO) 0.5 10^3/uL (0.1-1.4); ABSOLUTE NEUT (AUTO) 3.8 10^3/uL (1.7-8.2); BASOPHILS % (AUTO) 1.1 % (0-2); EOSINOPHILS % (AUTO) 1.9 % (0-6); HEMATOCRIT 32.1 % (36.0-47.0); HEMOGLOBIN 10.6 g/dL (12.0-15.5); LYMPHOCYTES % (AUTO) 20.1 % (13-45); MEAN CORPUSCULAR HEMOGLOBIN 28.3 pg (27.0-33.4); MEAN CORPUSCULAR VOLUME 86 fl (80-97); MONOCYTES % (AUTO) 8.6 % (3-13); PLATELET COUNT 247 10^3/uL (150-450); RED BLOOD COUNT 3.74 10^6/uL (3.72-5.28); RED CELL DISTRIBUTION WIDTH 15.2 % (11.5-14.0); SEGMENTED NEUTROPHILS % (AUTO) 68.3 % (42-78); TOTAL CELLS COUNTED % (AUTO) 100 %; WHITE BLOOD COUNT 5.5 10^3/uL (4.0-10.5)
[2018-04-29 13:44] LABS: IRON(TIBC) 33.2 ug/dL (37-170); PHOSPHORUS 5.4 mg/dL (2.5-4.5)
[2018-04-30 04:38] LABS: HEPATITIS C VIRUS AB <0.1 s/co ratio (0.0-0.9)
[2018-04-30 05:39] LABS: HEPATITIS B SURFACE AB QUANT <3.1 mIU/mL (Immunity>9)
== END ==
LOC: OD 12:07
PROVIDERS: ATTEND Internal Medicine Nephrology
DX: N18.5 Chronic kidney disease, stage 5 (principal); E83.39 Other disorders of phosphorus metabolism; D50.9 Iron deficiency anemia, unspecified
CPT/HCPCS: 36415; 82728; 83540; 83550; 84100; 85025; 86317; 86704; 86803; 86804

== ENCOUNTER 2018-05-11 05:18 | Inpatient (IN) | payer MEDICARE ==
[2018-05-06 09:49] LABS: HEMATOCRIT 34.8 % (36.0-47.0); HEMOGLOBIN 11.6 g/dL (12.0-15.5); MEAN CORPUSCULAR HEMOGLOBIN 28.3 pg (27.0-33.4); MEAN CORPUSCULAR HGB CONC 33.3 g/dL (32.0-36.0); MEAN CORPUSCULAR VOLUME 85 fl (80-97); PLATELET COUNT 236 10^3/uL (150-450); RED BLOOD COUNT 4.08 10^6/uL (3.72-5.28); RED CELL DISTRIBUTION WIDTH 15.5 % (11.5-14.0); WHITE BLOOD COUNT 4.7 10^3/uL (4.0-10.5)
[2018-05-06 10:15] LABS: ANION GAP 15 (5-19); BLOOD UREA NITROGEN 98 mg/dL (7-20); CALCIUM 9.5 mg/dL (8.4-10.2); CARBON DIOXIDE 27 mmol/L (22-30); CHLORIDE 98 mmol/L (98-107); GLUCOSE 90 mg/dL (75-110); POTASSIUM 4.9 mmol/L (3.6-5.0); SODIUM 139.8 mmol/L (137-145)
--- NOTE | 2018-05-06 21:59 | EKG REPORT ---
SEVERITY:- ABNORMAL ECG - SINUS RHYTHM LEFT AXIS DEVIATION LEFT VENTRICULAR HYPERTROPHY : Confirmed by: Gregory Rae 06-May-2018 21:59:06
[~2018-05-11 05:18] MED LIST changes: -BESIFLOXACIN HCL 0.6% OPH SUSP 5 ML BOTTLE OD PRN; -BUPIVACAINE HCL 0.75% INJ/PF (7.5 MG/1 ML) 10 ML SDV OD PRN; +CEFAZOLIN 1 GM/D5W RTU 1 GM/50 ML RTUPB IV ONE; +CEFAZOLIN 1 GM/D5W RTU 1 GM/50 ML RTUPB IV PRN; -CYCLOPENTOLATE 0.2%/PHENYLEPHRINE 1% OPH SOLN 2 ML OD PRN; -KETOROLAC TROMETHAMINE 0.45% 4 DROP/0.4 ML DROPERETTE OD PRN; +LIDOCAINE 0.5% INJ-PF (5 MG/ML) 50 ML SDV SUBCUT PRN; -LIDOCAINE 4% INJ/PF (40 MG/ML) 5 ML AMPUL OD PRN; +NORMAL SALINE 1000 ML (RENAL PATIENTS) IV PRN; -TETRACAINE HCL 0.5% OPH SOLN 0.6 ML DROPERETTE OD PRN; -TROPICAMIDE 1% OPH SOLN 3 ML OD PRN
--- NOTE | 2018-05-11 06:22 | RADIOLOGY REPORT (SQ) ---
EXAM DESCRIPTION: XR CHEST 1 VIEW COMPLETED DATE/TME: 05/11/2018 05:44 CLINICAL HISTORY: pre op COMPARISON: None. FINDINGS: Single frontal view of the chest. Atherosclerotic calcification of the thoracic aorta. Cardiomegaly. Low lung volumes. No consolidation, pneumothorax, or pleural effusion. No displaced rib fractures identified. Upper abdominal soft tissues are unremarkable. IMPRESSION: 1. No acute pulmonary process identified. Cardiomegaly.
[2018-05-11] MEDS ORDERED: BUPIVACAINE HCL 0.5 % INJ/PF 30 ML SDV ONE (06:25)
[2018-05-11] MEDS ORDERED: LIDOCAINE 0.5% INJ-PF (5 MG/ML) 50 ML SDV ONE (06:26)
[2018-05-11] MEDS ORDERED: BACITRACIN INJ 50,000 UNIT VIAL ONE (06:26)
[2018-05-11] MEDS ORDERED: HEPARIN SOD (PORCINE) 1,000 UNIT/ML 1 ML VIAL ONE (06:26)
[2018-05-11] MEDS ORDERED: PROPOFOL INJ 200 MG/20 ML VIAL IV ONE (07:08)
[2018-05-11] MEDS ORDERED: LIDOCAINE 2% INJ-PF (20 MG/ML) 10 ML AMPUL ONE (07:08)
[2018-05-11] MEDS ORDERED: MIDAZOLAM 2 MG/2 ML INJ ONE (07:08)
[2018-05-11] MEDS ORDERED: EPHEDRINE SULFATE INJ 50 MG/1 ML AMPULE ONE (07:08)
[2018-05-11] MEDS ORDERED: ACETAMINOPHEN 1,000 MG/100 ML RTUPB IV ONE (07:08)
[2018-05-11] MEDS ORDERED: HYDROMORPHONE HCL INJ/PF 2 MG/ML AMPULE ONE (07:08)
[2018-05-11] MEDS ORDERED: BUPIVACAINE INJ/PF LIPOSOME/PF 266 MG/20 ML SDV ONE (08:10)
[2018-05-11] MEDS ORDERED: FENTANYL CITRATE INJ/PF 100 MCG/2 ML AMPUL IV PRN ×2 (08:13)
[2018-05-11] MEDS ORDERED: DIPHENHYDRAMINE HCL 50 MG/ML VIAL IV PRN (08:13)
[2018-05-11] MEDS ORDERED: OXYCODONE-ACETAMINOPHEN 5-325 MG TABLET PO PRN (08:13)
[2018-05-11] MEDS ORDERED: PROMETHAZINE HCL INJ 25 MG/1 ML VIAL IV PRN ×2 (08:13)
[2018-05-11] MEDS ORDERED: ONDANSETRON HCL INJ/PF 4 MG/2 ML SDV IV PRN (08:13)
[2018-05-11] MEDS ORDERED: MEPERIDINE HCL/PF INJ 25 MG/1 ML DISP.SYRIN IV PRN (08:13)
[2018-05-11] MEDS ORDERED: GLYCOPYRROLATE 1 MG/5 ML SYRINGE ONE (10:18)
[2018-05-11] MEDS ORDERED: NEOSTIGMINE METHYLSULFATE 10 MG/10 ML VIAL ONE (10:18)
[2018-05-11] MEDS ORDERED: ONDANSETRON HCL INJ/PF 4 MG/2 ML SDV ONE (10:18)
[2018-05-11] MEDS ORDERED: METOCLOPRAMIDE HCL INJ/PF 10 MG/2 ML SDV ONE (10:18)
[2018-05-11] MEDS ORDERED: ROCURONIUM BROMIDE INJ 50 MG/5 ML VIAL IV ONE (10:18)
[2018-05-11] MEDS ORDERED: SUCCINYLCHOLINE CHLORIDE INJ 200 MG/10 ML VIAL ONE (10:18)
--- NOTE | 2018-05-11 10:54 | RADIOLOGY REPORT (SQ) ---
EXAM DESCRIPTION: KUB/ABDOMEN (SINGLE VIEW) COMPLETED DATE/TIME: 05/11/2018 10:29 am REASON FOR STUDY: MISSING INSTRUMENT IN OR K42.9 UMBILICAL HERNIA WITHOUT OBSTRUCTION OR GANGRENE N 18.9 CHRONIC KIDNEY DISEASE, UNSPECIFIED Z79.01 PREVOCATIONAL/REHABILITATION COUNSELOR (CURRENT) USE OF ANTICOAGULANTS COMPARISON: None. NUMBER OF VIEWS: One view. TECHNIQUE: Supine radiographic image of the abdomen acquired. LIMITATIONS: None. FINDINGS: BOWEL GAS PATTERN: Normal bowel gas pattern. No dilated loops. CALCIFICATIONS: No suspicious calcifications. SOFT TISSUES: No gross mass or suggestion of organomegaly. HARDWARE: Nasogastric tube with the tip in the stomach. Tubing overlying the right side of the abdom en. No other radiopaque foreign body. BONES: No acute fracture. No worrisome bone lesions. OTHER: No other significant finding. IMPRESSION: NO RADIOGRAPHIC EVIDENCE FOR ACUTE ABDOMINAL DISEASE. HARDWARE DESCRIBED. TECHNICAL DOCUMENTATION: JOB ID: [id number] [employer]- All Rights Reserved Reading location - IP/workstation name: [email or web address]
[2018-05-11] MEDS: FENTANYL CITRATE INJ/PF 100 MCG/2 ML AMPUL ONE ×2 (11:09→11:14)
[2018-05-11] MEDS ORDERED: MORPHINE SULFATE 10 MG/ML INJ ONE (11:37)
[2018-05-11] MEDS ORDERED: PROMETHAZINE HCL INJ 25 MG/1 ML VIAL ONE (11:53)
[2018-05-11] MEDS ORDERED: MORPHINE SULFATE 10 MG/ML INJ IV PRN (12:45)
[2018-05-11] MEDS ORDERED: DEXTROSE 5%-1/2 NORMAL SALINE 1,000 ML IV PRN (12:50)
--- NOTE | 2018-05-11 16:06 | Operative Report ---
Operative Report DATE OF SURGERY: 05/11/18 PREOPERATIVE DIAGNOSIS: 1. CKD 5. 2. Large chronically incarcerated umbilical hernia. 3. Diabetes mellitus type 2. 4. Obesity. 5. Hypertension POSTOPERATIVE DIAGNOSIS: 1. CKD 5. 2. Large chronically incarcerated umbilical hernia. 3. Diabetes mellitus type 2. 4. Obesity. 5. Hypertension OPERATION: Reduction and repair of chronically incarcerated umbilical hernia, using mesh. Open, retrorectus repair. SURGEON: FREDO BULL SLIP TENDER: None. ANESTHESIA: GA TISSUE REMOVED OR ALTERED: Portion of hernia sac. COMPLICATIONS: Inability to do peritoneal dialysis cath that the sitting. ESTIMATED BLOOD LOSS: 20 mL. INTRAOPERATIVE FINDINGS: Of a very large umbilical hernia chronically incarcerated in the subcutaneous tissues. Measuring about 8 cm across. The fascial defect measured 3 cm. Reduction required enlargement of the fascia defect superiorly for an additional 2 cm. Reduction was then easily accomplished. The hernia sac had small bowel content which was reduced. Much of this required quite tedious dissection in order to safely separate the 2. A satisfactory dissection was done in the retrorectus space for placement of a 12 cm diameter circular mesh. This very adequately cover the defect in this patient with risk factors for recurrence. With the retrorectal rectus repair, safe insertion of a peritoneal dialysis catheter in this same space seemed unadvisable. Some other means of dialysis will therefore have to be sought at least for several months after which a peritoneal dialysis insertion could be contemplated. This possibility was discussed with the patient and her family before surgery because of the size and incarceration of the hernia. The hernia seems to have been incarcerated for 5 and possibly 10 years according to the patient. PROCEDURE: After obtaining informed consent and going over the procedure with [the patient and her family], she was taken to the operating room, she was anesthetized and intubated. The abdomen was prepped and draped in the usual sterile fashion. After the universal timeout, in which it was verified that the patient received IV antibiotic, the procedure commenced. A midline incision was made [in the epigastrium about 12 cm in length]. This is in reference to the palpation and marking of the abdominal wall bulge. Local anesthesia was infiltrated. Incision was made with a [15 blade scalpel]. Dissection now proceeded through the subcutaneous tissue down to the hernia sac, the margins of the hernia were defined dissecting with cautery and scissor dissection as needed. The fascial margins were serially grasped with Anne-Marie clamps and elevated. It was found necessary to extend the fascial incision superiorly 2-3 cm in order to secure reduction. This facilitated [ retroperitoneal and then retrorectus dissection]. This was done circumferentially for at least [5 cm, in all directions]. This was facilitated by moving from each side of the table so as to get optimal access to the other. Hemostasis was now secured in this space using sutures of 3-0 PDS, both monopolar and bipolar cautery. The hernia sac was opened and the contents inspected. This was largely small bowel and some omentum. This was dissected off the sac where it was adherent which is mostly inferiorly. This dissection was only enough to allow for safe retroperitoneal dissection. The dimensions of the fascial defect were measured out. The retroperitoneal dissection and extended far up into the bifurcation of the rectus. A mesh was selected of the size, sufficient to cover the hernia defect with at least a 5 cm overlap.[ A 15 cm, round, absorbable backed lightweight mesh was now tailored to about 12-12.5 cm and placed in the space]. It was anchored and kept slightly taut with interrupted sutures of 0 PDS placed at intervals through the anterior fascia and rectus muscles, it was now tied down to the fascia and cut about a centimeter long in each case, in this way circumferential control of the mesh was accomplished. The wound was irrigated with antibiotic containing solution. A 15 Pashto Kareem drain was now inserted through a separate incision placed to the right lateral aspect and with the drainage port lying above the mesh. Fascial closure, above the mesh, was now accomplished using a continuous suture of 0 PDS. This was done with bites 5 mm apart and 5 mm away from the fascial edge. This conforms to best practices for reduction of hernia recurrence. The subcutaneous tissues under it when it were now irrigated with antibiotic containing solution. The subcutaneous tissues were closed using layers of interrupted 3-0 PDS sutures. First a portion of the umbilical skin was removed as it seemed to just be. The skin was closed using a continuous suture of 4-0 Monocryl. This was reinforced with Steri- Strips over benzoin and a sterile dressing applied. Each of the small exit sites for the fascial sutures were further approximated using interrupted 4-0 Monocryl and supported with Steri-Strips. Dressings were now applied and the procedure concluded. An abdominal binder was placed on the patient. Copies dictated operative report to Dr. Fredo Huerta MD.
[2018-05-11] MEDS: OXYCODONE-ACETAMINOPHEN 5-325 MG TABLET PO PRN (17:58)
[2018-05-11] MEDS ORDERED: HYDRALAZINE HCL 25 MG TABLET PO ONE (23:45)
[2018-05-12] MEDS: OXYCODONE-ACETAMINOPHEN 5-325 MG TABLET PO PRN ×3 (00:12→12:41)
[2018-05-12] MEDS: FERROUS SULFATE 325 MG TABLET PO SCH (09:56)
[2018-05-12] MEDS: TORSEMIDE 20 MG TABLET PO SCH (09:56)
[2018-05-12] MEDS: METOPROLOL TARTRATE 50 MG TABLET PO SCH ×2 (09:56→17:05)
[2018-05-12] MEDS: LISINOPRIL 10 MG TABLET PO SCH (09:56)
[2018-05-12] MEDS: HYDRALAZINE HCL 25 MG TABLET PO SCH ×3 (09:56→17:03)
[2018-05-12] MEDS: CLONIDINE HCL 0.1 MG TABLET PO SCH ×4 (09:57→21:45)
[2018-05-12] MEDS: CALCITRIOL 0.25 MCG CAPSULE PO SCH (09:57)
[2018-05-12] MEDS ORDERED: LEVOTHYROXINE SODIUM 0.025 MG TABLET PO SCH (10:00)
[2018-05-12] MEDS ORDERED: GLIPIZIDE 20 MG PO SCH (10:00)
[2018-05-12] MEDS ORDERED: HUM INSULIN NPH/REG INSULIN HM 100 UNIT/1 ML 3 ML SUBCUT SCH (10:00)
[2018-05-12] MEDS ORDERED: SIMVASTATIN 40 MG TABLET PO SCH (10:00)
[2018-05-12] MEDS: LEVOTHYROXINE SODIUM 0.025 MG TABLET PO SCH (10:07)
--- NOTE | 2018-05-12 11:57 | RADIOLOGY REPORT (SQ) ---
EXAM DESCRIPTION: ACUTE ABDOMEN SERIES COMPLETED DATE/TIME: 05/12/2018 11:46 am REASON FOR STUDY: vomiting and urinary retention K42.9 UMBILICAL HERNIA WITHOUT OBSTRUCTION OR GANG KALE N18.9 CHRONIC KIDNEY DISEASE, UNSPECIFIED Z79.01 JAIL (CURRENT) USE OF ANTICOAGULANTS COMPARISON: 05/11/2018. NUMBER OF VIEWS: Three views. TECHNIQUE: Frontal chest, supine abdomen and upright/decubitus abdomen radiographic images acquired. LIMITATIONS: None. FINDINGS: CHEST: Lungs clear of infiltrates. FREE AIR: None. No abnormal gas collections. BOWEL GAS PATTERN: Nonobstructive pattern. No dilated loops or air fluid levels. Prominent stool in the colon. CALCIFICATIONS: No suspicious calcifications. HARDWARE: Surgical drain. SOFT TISSUES: No gross mass or suggestion of organomegaly. BONES: No acute fracture. Degenerative changes in the spine. No worrisome bone lesions. OTHER: No other significant finding. IMPRESSION: PROMINENT STOOL IN THE COLON PROBABLY INDICATING CONSTIPATION. NO OTHER SIGNIFICANT FIN DINGS. TECHNICAL DOCUMENTATION: JOB ID: [id number] [employer]- All Rights Reserved Reading location - IP/workstation name: [facility]
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
[2018-05-12] MEDS ORDERED: 1/2 NORMAL SALINE 1,000 ML IV PRN (13:27)
[2018-05-12] MEDS ORDERED: NA PHOS,M-B/NA PHOS,DI-BA (ADULT) 133 ML ENEMA PR PRN (14:00)
[2018-05-12] MEDS ORDERED: METOCLOPRAMIDE HCL INJ/PF 10 MG/2 ML SDV IV ONE (14:30)
[2018-05-12] MEDS: METOCLOPRAMIDE HCL INJ/PF 10 MG/2 ML SDV IV SCH (17:05)
[2018-05-12] MEDS ORDERED: GLIPIZIDE XL 5 MG TAB.ER.24 PO SCH (18:00)
[2018-05-12] MEDS: ROPINIROLE HCL 1 MG TABLET PO SCH (21:45)
[2018-05-12] MEDS: BISACODYL 10 MG SUPP.RECT PR SCH (21:45)
[2018-05-13 04:30] LABS: HEMATOCRIT 31.5 % (36.0-47.0); HEMOGLOBIN 10.3 g/dL (12.0-15.5); MEAN CORPUSCULAR HGB CONC 32.8 g/dL (32.0-36.0); MEAN CORPUSCULAR VOLUME 85 fl (80-97); PLATELET COUNT 221 10^3/uL (150-450); RED BLOOD COUNT 3.69 10^6/uL (3.72-5.28)
[2018-05-13 04:52] LABS: ANION GAP 14 (5-19); BLOOD UREA NITROGEN 87 mg/dL (7-20); CALCIUM 9.2 mg/dL (8.4-10.2); CARBON DIOXIDE 23 mmol/L (22-30); CHLORIDE 97 mmol/L (98-107); GLUCOSE 149 mg/dL (75-110); POTASSIUM 4.3 mmol/L (3.6-5.0); SODIUM 134.2 mmol/L (137-145)
[2018-05-13] MEDS: LEVOTHYROXINE SODIUM 0.025 MG TABLET PO SCH (06:32)
[2018-05-13] MEDS: HUM INSULIN NPH/REG INSULIN HM 100 UNIT/1 ML 3 ML SUBCUT SCH (09:51)
[2018-05-13] MEDS: METOCLOPRAMIDE HCL INJ/PF 10 MG/2 ML SDV IV SCH ×3 (09:52→18:09)
[2018-05-13] MEDS: METOPROLOL TARTRATE 50 MG TABLET PO SCH ×2 (09:53→18:08)
[2018-05-13] MEDS: TORSEMIDE 20 MG TABLET PO SCH (09:53)
[2018-05-13] MEDS: CALCITRIOL 0.25 MCG CAPSULE PO SCH (09:53)
[2018-05-13] MEDS: FERROUS SULFATE 325 MG TABLET PO SCH (09:55)
[2018-05-13] MEDS: LISINOPRIL 10 MG TABLET PO SCH (09:55)
[2018-05-13] MEDS: CLONIDINE HCL 0.1 MG TABLET PO SCH ×4 (09:56→21:57)
[2018-05-13] MEDS: HYDRALAZINE HCL 25 MG TABLET PO SCH ×3 (09:56→18:08)
[2018-05-13] MEDS ORDERED: BISACODYL 10 MG SUPP.RECT PR SCH (10:00)
[2018-05-13] MEDS: BISACODYL 10 MG SUPP.RECT PR SCH (10:12)
[2018-05-13] MEDS ORDERED: HUM INSULIN NPH/REG INSULIN HM 100 UNIT/1 ML 3 ML SUBCUT SCH (16:00)
[2018-05-13] MEDS: GLIPIZIDE XL 5 MG TAB.ER.24 PO SCH (18:11)
[2018-05-13] MEDS: ROPINIROLE HCL 1 MG TABLET PO SCH (21:57)
[2018-05-13] MEDS ORDERED: SIMVASTATIN 40 MG TABLET PO SCH (22:00)
[2018-05-14] MEDS: LEVOTHYROXINE SODIUM 0.025 MG TABLET PO SCH (05:04)
[2018-05-14] MEDS: HUM INSULIN NPH/REG INSULIN HM 100 UNIT/1 ML 3 ML SUBCUT SCH (10:12)
[2018-05-14] MEDS: GLIPIZIDE XL 5 MG TAB.ER.24 PO SCH (10:12)
[2018-05-14] MEDS: METOCLOPRAMIDE HCL INJ/PF 10 MG/2 ML SDV IV SCH ×2 (10:12→12:10)
[2018-05-14] MEDS: HYDRALAZINE HCL 25 MG TABLET PO SCH (10:13)
[2018-05-14] MEDS: FERROUS SULFATE 325 MG TABLET PO SCH (10:14)
[2018-05-14] MEDS: CLONIDINE HCL 0.1 MG TABLET PO SCH (10:14)
[2018-05-14] MEDS: METOPROLOL TARTRATE 50 MG TABLET PO SCH (10:14)
[2018-05-14] MEDS: TORSEMIDE 20 MG TABLET PO SCH (10:14)
[2018-05-14] MEDS: BISACODYL 10 MG SUPP.RECT PR SCH (10:14)
[2018-05-14] MEDS: OXYCODONE-ACETAMINOPHEN 5-325 MG TABLET PO PRN (10:15)
[2018-05-14] MEDS: LISINOPRIL 10 MG TABLET PO SCH (10:15)
[2018-05-14] MEDS: CALCITRIOL 0.25 MCG CAPSULE PO SCH (10:15)
[2018-05-14 12:30] VITALS: BP 160/59
--- NOTE | 2018-05-14 12:43 | PDOC DISCHARGE SUMMARY ---
General - Admit/Disc Date/PCP Admission Date/Primary Care Provider: 05/13/18 18:36 COLT MINOR PA-C Discharge Date: 05/14/18 - Discharge Diagnosis (1) Vomiting Is this a current diagnosis for this admission?: Yes Summary: Vomiting nausea is resolved. The patient has tolerated a full liquid to normal to 48 hours. Good bowel movements as well. (2) Postoperative urinary retention Is this a current diagnosis for this admission?: Yes Summary: Resolved voiding spontaneously without difficulty. (3) CKD (chronic kidney disease) stage 5, GFR less than 15 ml/min Is this a current diagnosis for this admission?: Yes Summary: Possibly slightly improved. Glomerular filtration rate has gone from 11-13 (4) Diabetes mellitus type 2 in obese Is this a current diagnosis for this admission?: Yes Summary: Acceptable control. - Additional Information Home Medications: Calcitriol [Rocaltrol 0.25 mcg Capsule] 0.25 mcg PO MOWEFR 05/13/18 Cholecalciferol (Vitamin D3) [Vitamin D3 5000 unit Capsule] 5,000 unit PO DAILY 05/13/18 Clonidine HCl [Catapres 0.2 mg Tablet] 0.2 mg PO QID 05/13/18 Ferrous Sulfate [Feosol 325 mg Tablet] 650 mg PO DAILY 05/13/18 Glipizide [Glipizide Xl] 10 mg PO BID 05/13/18 Hum Insulin NPH/Reg Insulin Hm [Novolin 70-30 100 Unit/ml Vial] 10 unit SQ QAM 05/13/18 Hum Insulin NPH/Reg Insulin Hm [Novolin 70-30 100 Unit/ml Vial] 20 unit SQ WSUPPER 05/13/18 Hydralazine HCl [Apresoline 50 mg Tablet] 50 mg PO Q8 05/13/18 Levothyroxine Sodium [Synthroid] 25 mcg PO Q6AM 05/13/18 Lisinopril [Zestril] 20 mg PO BID 05/13/18 Metoprolol Tartrate [Lopressor 25 mg Tablet] 25 mg PO Q12 05/13/18 Ropinirole HCl [Requip] 2 mg PO QHS 05/13/18 Simvastatin [Zocor 40 mg Tablet] 40 mg PO QPM 05/13/18 Torsemide [Demadex 20 mg Tablet] 40 mg PO DAILY 05/13/18 History of Present Illness History of Present Illness: ARUNA ALLEN is a 67 year old female Hospital Course Hospital Course: The patient was admitted for surgery, repair and reduction of a large umbilical hernia. Surgery was challenging to effectively repair the hernia and therefore a dialysis catheter was not inserted. Postoperative the patient has had difficulties with nausea and vomiting and urinary retention. These have resolved since admission with IV Reglan, ambulation and general support. In addition her glomerular filtration rate may have improved slightly. Physical Exam Vital Signs: Temp Pulse Resp BP Pulse Ox 97.6 F 67 16 160/59 H 99 05/14/18 12:27 05/14/18 12:27 05/14/18 12:27 05/14/18 12:27 05/14/18 12:27 Intake & Output 05/13/18 05/14/18 05/15/18 06:59 06:59 06:59 Intake Total 3015 1775 Output Total 3165 20 Balance -150 1755 Weight 108 kg Additional comments: Constitutional: Well-developed well-nourished female, obese body habitus. No apparent acute distress. Eyes: Mucous membranes pink and moist, pupils equal and reactive to light. Conjunctiva normal. Cornea normal. Wears spectacles. ENT: Hearing grossly normal. External pinna normal to inspection. Teeth intact. Tongue normal to inspection. Respiratory breath: Normal respiratory effort. Abdomen: Soft, nontender. Bowel sounds are normal. Drain removed. Dressing left in place over fresh surgical scar. Psychiatric: Judgment, memory, insight seem normal. Mood is pleasant and appropriate. Results Laboratory Results: 05/13/18 04:01 05/13/18 04:01 Impressions: Chest X-Ray 05/11/18 05:44 IMPRESSION: 1. No acute pulmonary process identified. Cardiomegaly. KUB X-Ray 05/11/18 10:14 IMPRESSION: NO RADIOGRAPHIC EVIDENCE FOR ACUTE ABDOMINAL DISEASE. HARDWARE DESCRIBED. Acute Abdomen Series 05/12/18 00:00 IMPRESSION: PROMINENT STOOL IN THE COLON PROBABLY INDICATING CONSTIPATION. NO OTHER SIGNIFICANT FINDINGS. Qualifiers - * PATIENT BEING DISCHARGED WITH ANY OF THE FOLLOWING DIAGNOSIS: No VTE patient discharged on overlapping Therapy?: No Reason(s) for not prescribing Overlap Therapy:: Not indicated Stroke Pt being discharged on Anti-thrombolytic therapy?: No Reason(s) for not prescribing Anti-thrombolytic therapy:: Not indicated Reason(s) for not prescribing Anti-coagulation therapy:: Not indicated Reason(s) for not prescribing Statins therapy:: Not indicated Reason(s) for not prescribing Aspirin therapy:: Not indicated CA Pt being discharged on Statins?: No Reason(s) for not prescribing Statin therapy:: Not indicated CA Pt discharged ACEI/ARBS?: No Reason(s) for not prescribing ACEI/ARBS:: Not indicated HF Pt being discharged on ACEI for LVEF less than 40%?: No Reason(s) for not prescribing ACEI:: Not indicated HF Pt being discharged on ARBS for LVEF less than 40%?: No Reason(s) for not prescribing ARBS:: Not indicated HF Pt with Afib discharged with Warfarin?: No Reason(s) for not prescribing Warfarin:: Not indicated HF Pt discharged on evidence-based Beta Rob:: Yes Plan Discharge Plan: The patient will be discharged home. Detailed discharge instructions are in the discharge order. She is to continue her normal medication. She is given a prescription for 10 Percocet to be taken as needed. Activity is encouraged especially walking. Follow-up to be in office by appointment next week. As far as dialysis is concerned, she is CKD 5 and may well need access in the near future. I suspect that this would have to be a PermCath followed by a fistula or possibly secondarily a PD catheter. If she needs a PD catheter it should probably wait for a good few months to allow healing of the hernia and it may be challenged by the presence of a large abdominal wall mesh.
--- NOTE | 2018-05-23 11:55 | PDOC PROGRESS REPORT ---
Subjective Progress Note for:: 05/13/18 Subjective:: The patient overall feels better. She is sitting out of bed this morning. Reason For Visit: K42.9 UMBILICAL HERNIA WITHOUT OBSTRUCTION , N18.9 Post incarcerated umbilical hernia repair with challenges in nutrition acceptance. Today she is able to keep down her diet which is soft. She is having flatus and some bowel movements. Physical Exam Vital Signs: Temp Pulse Resp BP Pulse Ox 98.4 F 74 18 160/59 H 99 05/13/18 12:30 05/13/18 12:30 05/13/18 12:30 05/13/18 12:30 05/13/18 12:30 Intake & Output 05/12/18 05/13/18 05/14/18 06:59 06:59 06:59 Intake Total 4960 3015 Output Total 1890 3165 Balance 3070 -150 Weight 107.1 kg 108 kg Additional comments: Constitutional: Well-developed well-nourished lady. No apparent acute distress. Eyes: Mucous membranes pink and moist, pupils equal and reactive to light. Conjunctiva normal. Cornea normal. ENT: Hearing grossly normal. External pinna normal to inspection. Teeth intact. Tongue normal to inspection. Respiratory: Normal respiratory effort. S Abdomen: Soft, nontender. Dressings in place, clean. Drain removed. Bowel sounds are present l. Psychiatric: Judgment, memory, insight seem normal. Mood is pleasant and appropriate. Extremities: Upper extremities show normal range of movement. Pulses present noted to the radial arteries. Capillary refill normal. No cyanosis noted. No muscle wasting noted. Results Laboratory Results: 05/13/18 04:01 05/13/18 04:01 05/13/18 05/13/18 04:01 04:01 WBC 6.0 RBC 3.69 L Hgb 10.3 L Hct 31.5 L MCV 85 MCH 28.0 MCHC 32.8 RDW 15.0 H Plt Count 221 Sodium 134.2 L Potassium 4.3 Chloride 97 L Carbon Dioxide 23 Anion Gap 14 BUN 87 H Creatinine 4.00 H Est GFR ( Amer) 13 L Est GFR (Non-Af Amer) 11 L Glucose 149 H Calcium 9.2 Impressions: Chest X-Ray 05/11/18 05:44 IMPRESSION: 1. No acute pulmonary process identified. Cardiomegaly. KUB X-Ray 05/11/18 10:14 IMPRESSION: NO RADIOGRAPHIC EVIDENCE FOR ACUTE ABDOMINAL DISEASE. HARDWARE DESCRIBED. Acute Abdomen Series 05/12/18 00:00 IMPRESSION: PROMINENT STOOL IN THE COLON PROBABLY INDICATING CONSTIPATION. NO OTHER SIGNIFICANT FINDINGS. Assessment & Plan - Diagnosis (1) Vomiting Qualifiers: Vomiting type: bilious vomiting Nausea presence: with nausea Qualified Code(s): R11.14 - Bilious vomiting Is this a current diagnosis for this admission?: Yes - Plan Summary Plan Summary: This patient was admitted for and underwent reduction and repair of a large chronically incarcerated umbilical hernia has had difficulty resuming a diet. Working suspicion is gastroparesis. This is improving. Unfortunately placing a peritoneal dialysis catheter was not possible given the findings at surgery. She will be monitored for subsequent need for hemodialysis or placement of peritoneal dialysis catheter in the future. She is progressing satisfactorily and it is hoped that she can be discharged in 24-48 hours, once she can proceed independently with.
== END 2018-05-14 13:50 | disposition home or self-care (01) | DRG 354 ==
LOC: OROUT 05:18 → 5 13:04 → OROUT 05-13 18:35 → 5 05-13 18:36
PROVIDERS: ADMIT Surgery; ATTEND Surgery
PROC: 0WUF0JZ Supplement Abdominal Wall with Synthetic Substitute, Open Approach (ICD-10-PCS; principal; 2018-05-11 07:30)
DX: K42.0 Umbilical hernia with obstruction, without gangrene (principal); N18.5 Chronic kidney disease, stage 5; I12.0 Hypertensive chronic kidney disease with stage 5 chronic kidney disease or end stage renal disease; E11.22 Type 2 diabetes mellitus with diabetic chronic kidney disease; N99.89 Other postprocedural complications and disorders of genitourinary system; R11.14 Bilious vomiting; R33.8 Other retention of urine; E66.9 Obesity, unspecified; Z79.01 Long term (current) use of anticoagulants; Z68.38 Body mass index [BMI] 38.0-38.9, adult; Z79.84 Long term (current) use of oral hypoglycemic drugs; Z79.899 Other long term (current) drug therapy
CPT/HCPCS: 36415; 71045; 74018; 750; 80048; 82962; 84132; 85027; 88302; 93005; 93010; C1781; C9290; J0131; J0330; J0690; J1170; J1642; J1644; J1815; J2250; J2270; J2405; J2550; J2704; J2765; J3010; J3490

== ENCOUNTER → 2018-05-20 | Outpatient (CLI) | payer MEDICARE ==
[2018-05-21 10:58] LABS: HEPATITS B SURFACE ANTIGEN Negative (Negative)
== END ==
LOC: OD 11:55
PROVIDERS: ATTEND Internal Medicine Nephrology
DX: Z11.59 Encounter for screening for other viral diseases (principal); N18.5 Chronic kidney disease, stage 5; R80.9 Proteinuria, unspecified; Z79.899 Other long term (current) drug therapy
CPT/HCPCS: 36415; 87340

== ENCOUNTER 2018-05-24 06:58 | Day surgery (SDC) | payer MEDICARE ==
[~2018-05-24 06:58] MED LIST changes: -CEFAZOLIN 1 GM/D5W RTU 1 GM/50 ML RTUPB IV ONE; -LIDOCAINE 0.5% INJ-PF (5 MG/ML) 50 ML SDV SUBCUT PRN; -NORMAL SALINE 1000 ML (RENAL PATIENTS) IV PRN
[2018-05-24] MEDS ORDERED: OXYCODONE-ACETAMINOPHEN 5-325 MG TABLET ONE (07:22)
[2018-05-24] MEDS ORDERED: CEFAZOLIN 1 GM/D5W RTU 1 GM/50 ML RTUPB IV ONE (07:22)
[2018-05-24] MEDS ORDERED: DIAZEPAM 5 MG TABLET ONE (07:22)
[2018-05-24] MEDS ORDERED: LIDOCAINE 0.5% INJ-PF (5 MG/ML) 50 ML SDV ONE (07:31)
[2018-05-24] MEDS ORDERED: BACITRACIN INJ 50,000 UNIT VIAL ONE (07:31)
[2018-05-24 07:36] LABS: ABSOLUTE BASOPHILS # (AUTO) 0.1 10^3/uL (0.0-0.2); ABSOLUTE EOSINOPHILS # (AUTO) 0.2 10^3/uL (0.0-0.6); ABSOLUTE LYMPHOCYTES (AUTO) 1.1 10^3/uL (0.5-4.7); ABSOLUTE MONOCYTES (AUTO) 0.5 10^3/uL (0.1-1.4); ABSOLUTE NEUT (AUTO) 3.7 10^3/uL (1.7-8.2); BASOPHILS % (AUTO) 2.2 % (0-2); EOSINOPHILS % (AUTO) 3.3 % (0-6); HEMATOCRIT 33.3 % (36.0-47.0); HEMOGLOBIN 10.7 g/dL (12.0-15.5); LYMPHOCYTES % (AUTO) 20.1 % (13-45); MEAN CORPUSCULAR HEMOGLOBIN 27.5 pg (27.0-33.4); MEAN CORPUSCULAR HGB CONC 32.3 g/dL (32.0-36.0); MEAN CORPUSCULAR VOLUME 85 fl (80-97); MONOCYTES % (AUTO) 8.1 % (3-13); PLATELET COUNT 275 10^3/uL (150-450); RED BLOOD COUNT 3.91 10^6/uL (3.72-5.28); RED CELL DISTRIBUTION WIDTH 14.5 % (11.5-14.0); SEGMENTED NEUTROPHILS % (AUTO) 66.3 % (42-78); TOTAL CELLS COUNTED % (AUTO) 100 %; WHITE BLOOD COUNT 5.6 10^3/uL (4.0-10.5)
[2018-05-24] MEDS ORDERED: MIDAZOLAM 2 MG/2 ML INJ ONE (07:53)
[2018-05-24] MEDS ORDERED: FENTANYL CITRATE INJ/PF 100 MCG/2 ML AMPUL ONE (07:53)
[2018-05-24 08:04] LABS: ANION GAP 11 (5-19); BLOOD UREA NITROGEN 84 mg/dL (7-20); CALCIUM 9.2 mg/dL (8.4-10.2); CARBON DIOXIDE 28 mmol/L (22-30); CHLORIDE 98 mmol/L (98-107); GLUCOSE 150 mg/dL (75-110); POTASSIUM 5.6 mmol/L (3.6-5.0); SODIUM 137.1 mmol/L (137-145)
--- NOTE | 2018-05-24 08:23 | RADIOLOGY REPORT (SQ) ---
EXAM DESCRIPTION: CHEST SINGLE VIEW COMPLETED DATE/TIME: 05/24/2018 7:52 am REASON FOR STUDY: preop COMPARISON: AP chest 05/11/2018 EXAM PARAMETERS: NUMBER OF VIEWS: One view. TECHNIQUE: Single frontal radiographic view of the chest acquired. RADIATION DOSE: NA LIMITATIONS: None. FINDINGS: LUNGS AND PLEURA: No opacities, masses or pneumothorax. No pleural effusion. MEDIASTINUM AND HILAR STRUCTURES: No masses. Contour normal. HEART AND VASCULAR STRUCTURES: Stable mild cardiomegaly BONES: No acute findings. HARDWARE: None in the chest. OTHER: No other significant finding. IMPRESSION: Stable mild cardiomegaly. No acute infiltrates TECHNICAL DOCUMENTATION: JOB ID: [id number] [employer]- All Rights Reserved Reading location - IP/workstation name: [email or web address]
--- NOTE | 2018-05-24 09:05 | Discharge Summary ---
Discharge Summary (SDC) - Discharge Final Diagnosis: #1 chronic kidney disease stage V. 2. Diabetes mellitus type 2. 3. Multiple comorbidities. Date of Surgery: 05/24/18 Discharge Date: 05/24/18 Condition: Fair Treatment or Instructions: Discharge home [after recovery per ASU criteria]. Diet , [renal],as tolerated, when fully awake advance as tolerated. Activities within moderation encouraged. Follow up in my office by appointment in about [1 week]. Call for appointment. Leave wounds [covered], [keep clean and dry, until office visit in 2 to 3 weeks. Hold of on school/work [until evaluation in office]. Meds per med rec. May shower [in 48 hrs], [try to keep operated area as dry as possible]. Referrals: COLT MINOR PA-C [Primary Care Provider] - Discharge Diet: Other (Comments) - Renal, diabetic Respiratory Treatments at Home: Deep Breathing/Coughing Discharge Activity: Activity As Tolerated Report the Following to Your Physician Immediately: Unusual Bleeding
--- NOTE | 2018-05-24 09:08 | Operative Report ---
Operative Report DATE OF SURGERY: 05/24/18 PREOPERATIVE DIAGNOSIS: #1 chronic kidney disease stage V. 2. Diabetes mellitus type 2. 3. Multiple comorbidities. POSTOPERATIVE DIAGNOSIS: #1 chronic kidney disease stage V. 2. Diabetes mellitus type 2. 3. Multiple comorbidities. OPERATION: 1. Ultrasound-guided access and evaluation, right internal jugular vein. 2. PermCath insertion in right internal jugular vein. 3. Angiogram and interpretation. SURGEON: FREDO BULL SENIOR ANALYST MARKET INTELLIGENCE: None. ANESTHESIA: Moderate Sedation TISSUE REMOVED OR ALTERED: Not applicable. COMPLICATIONS: None. ESTIMATED BLOOD LOSS: 5 mL. INTRAOPERATIVE FINDINGS: Of a satisfactory right internal jugular vein. Satisfactory access and position of catheter. Easy egress of blood and ingress of heparinized solution through both ports. Smooth flow of contrast through the right atrium, ventricle and pulmonary outflow tract. PROCEDURE: After obtaining informed consent, the patient was taken to the [Outside Food Server] and positioned supine. The [right neck] and chest were prepared with chlorhexidine and draped out with sterile linen. After the " universal timeout", in which it was verified that the patient continued to receive antibiotic, the procedure commenced. A steriley sheathed ultrasound probe was used to evaluate the [ right internal jugular] vein. Local anesthesia was infiltrated adjacent to the probe. Access into the [right internal jugular] vein was obtained using a micropuncture needle, followed by micropuncture wire and then a micropuncture catheter. This was followed by introduction of a 0.035 guidewire the tip of which was placed down into the inferior vena cava . A 23 cm long hemodialysis was now positioned over the chest and an exit site marked and locally anesthetized ,the catheter was placed between the 2 incisions. Proximally, the catheter was now positioned using a peel-away sheath, after dilation. Easy ingress of heparinized solution and egress of blood obtained through both ports. A completion angiogram was done by injecting contrast. The findings were as dictated. The neck incision was now closed using interrupted 3-0 PDS to the subcutaneous tissues, the catheter was anchored at the exit site using 3- 0 PDS. A Biopatch device was now placed adjacent to the catheter. Dressings were applied and the procedure concluded. Exposure time: [0.1 minutes]. Exposure: 5.67 Nancy gonzales. Contrast amount: [5 mL] of [id number] low osmolality. Copies of the dictated operative report for Dr. Fredo Huerta MD.concluded. Copies of the dictated operative report for Dr. Fredo Huerta MD.
[2018-05-24] MEDS ORDERED: ONDANSETRON HCL INJ/PF 4 MG/2 ML SDV ONE (09:10)
[2018-05-24 10:31] VITALS: BP 162/82
--- NOTE | 2018-05-24 12:03 | RADIOLOGY REPORT (SQ) ---
EXAM DESCRIPTION: TUNNELED CENTRAL LINE; GUIDANCE FLUOROSCOPIC COMPLETED DATE/TIME: 05/24/2018 10:48 am REASON FOR STUDY: NEED FOR VASCULAR ACCESS N18.9 CHRONIC KIDNEY DISEASE, UNSPECIFIED COMPARISON: None. FLUOROSCOPY TIME: Less than 10 seconds 20 digital radiographic images saved to PACS. TECHNIQUE: Intra-operative images acquired during surgical procedure to evaluate progress. NUMBER OF IMAGES: 20 radiographic digital images LIMITATIONS: None. FINDINGS: Intra procedural imaging and fluoro during placement of a right-sided central venous dialy sis catheter, with the tip in the right atrium. Please see Dr. Huerta operative report for further details IMPRESSION: Intra procedural imaging and fluoro during placement of a right-sided central venous raegan lysis catheter COMMENT: Quality ID 145: Final reports for procedures using fluoroscopy that document radiation exp osure indices, or exposure time and number of fluorographic images (if radiation exposure indices are not available) Please consult full operative report of the attending physician for description of the procedure. TECHNICAL DOCUMENTATION: JOB ID: [id number] [employer]- All Rights Reserved Reading location - IP/workstation name: [email or web address]
--- NOTE | 2018-05-24 12:03 | RADIOLOGY REPORT (SQ) ---
EXAM DESCRIPTION: TUNNELED CENTRAL LINE; GUIDANCE FLUOROSCOPIC COMPLETED DATE/TIME: 05/24/2018 10:48 am REASON FOR STUDY: NEED FOR VASCULAR ACCESS N18.9 CHRONIC KIDNEY DISEASE, UNSPECIFIED COMPARISON: None. FLUOROSCOPY TIME: Less than 10 seconds 20 digital radiographic images saved to PACS. TECHNIQUE: Intra-operative images acquired during surgical procedure to evaluate progress. NUMBER OF IMAGES: 20 radiographic digital images LIMITATIONS: None. FINDINGS: Intra procedural imaging and fluoro during placement of a right-sided central venous dialy sis catheter, with the tip in the right atrium. Please see Dr. Huerta operative report for further details IMPRESSION: Intra procedural imaging and fluoro during placement of a right-sided central venous raegan lysis catheter COMMENT: Quality ID 145: Final reports for procedures using fluoroscopy that document radiation exp osure indices, or exposure time and number of fluorographic images (if radiation exposure indices are not available) Please consult full operative report of the attending physician for description of the procedure. TECHNICAL DOCUMENTATION: JOB ID: [id number] [email or web address]- All Rights Reserved Reading location - IP/workstation name: [email or web address]-[email or web address]
== END 2018-05-24 10:15 | disposition home or self-care (01) ==
LOC: CCL 06:58
PROVIDERS: ATTEND Surgery
DX: N18.6 End stage renal disease (principal); E66.9 Obesity, unspecified; E07.9 Disorder of thyroid, unspecified; R00.0 Tachycardia, unspecified; I12.0 Hypertensive chronic kidney disease with stage 5 chronic kidney disease or end stage renal disease; R01.1 Cardiac murmur, unspecified; E11.22 Type 2 diabetes mellitus with diabetic chronic kidney disease; Z79.899 Other long term (current) drug therapy; Z79.84 Long term (current) use of oral hypoglycemic drugs; Z68.38 Body mass index [BMI] 38.0-38.9, adult
CPT/HCPCS: 36415; 85025; 80048; 36558; 76937; 77001; 71045; C1713; C1752; J2250; J3490 ×2; J0690; A9270 ×2; J3010; J2405; J1644

== ENCOUNTER → 2018-06-16 | Outpatient (CLI) | payer MEDICARE ==
--- NOTE | 2018-06-16 15:57 | RADIOLOGY REPORT (SQ) ---
EXAM DESCRIPTION: CT ABD/PELVIS WITH IV ORAL COMPLETED DATE/TIME: 06/16/2018 1:14 pm REASON FOR STUDY: ABD PAIN (R10.9) R10.9 UNSPECIFIED ABDOMINAL PAIN COMPARISON: Three-way abdomen series 05/12/2018 TECHNIQUE: CT scan of the abdomen and pelvis performed using helical scanning technique with dynamic intravenous contrast injection. Patient drank oral contrast. Images reviewed with lung, soft tissue , and bone windows. Reconstructed coronal and sagittal MPR images reviewed. Delayed images for evalua tion of the urinary system also acquired. All images stored on PACS. All CT scanners at this facility use dose modulation, iterative reconstruction, and/or weight based d osing when appropriate to reduce radiation dose to as low as reasonably achievable (ALARA). [facility]: Dose Right [facility]: CareDose [facility]: Dose Right [facility]: Teradose 4D [facility]: Exclusively.in CONTRAST TYPE AND DOSE: contrast/concentration: Isovue 350.00 mg/ml; Total Contrast Delivered: 100.0 ml; Total Saline Delivered: 72.0 ml RENAL FUNCTION: Creatinine 3.5. Dialysis tomorrow morning. RADIATION DOSE: CT Rad equipment meets quality standard of care and radiation dose reduction techniq ues were employed. CTDIvol: 18.2 - 18.8 mGy. DLP: 2913 mGy-cm.. LIMITATIONS: None. FINDINGS: An intact ventral hernia repair is present in the periumbilical region, best shown on axia l images 43 through 60, and sagittal image 45. LOWER CHEST: No significant findings. No nodules or infiltrates. LIVER: Normal size. No masses. No dilated ducts. SPLEEN: Normal size. No focal lesions. PANCREAS: No masses. No significant calcifications. No adjacent inflammation or peripancreatic fluid collections. Pancreatic duct not dilated. GALLBLADDER: No identified stones by CT criteria. No inflammatory changes to suggest cholecystitis. ADRENAL GLANDS: No significant masses or asymmetry. RIGHT KIDNEY AND URETER: No solid masses. Multiple cysts, the largest is 1.6 cm in the right lower p ole kidney. No significant calcifications. No hydronephrosis or hydroureter. LEFT KIDNEY AND URETER: No solid masses. Multiple cysts. The largest is 1.4 cm in the left mid pole kidney. No significant calcifications. No hydronephrosis or hydroureter. AORTA AND VESSELS: No aneurysm. No dissection. Renal arteries, SMA, celiac without stenosis. RETROPERITONEUM: There is retroperitoneal adenopathy, the largest lymph nodes are as follows: Left para aortic axial image 45, 2.2 x 1.5 cm Left para aortic axial image 50, 3.2 x 1.5 cm BOWEL AND PERITONEAL CAVITY: No masses or inflammatory changes. No free fluid or peritoneal masses. Patient drank oral contrast. No bowel obstruction. APPENDIX: Surgically absent PELVIS: No mass. No free fluid. Normal bladder. Enlarged fibroid uterus ABDOMINAL WALL: Intact ventral hernia repair as above BONES: Degenerative facet arthropathy and degenerative disc changes lower lumbar spine OTHER: No other significant finding. IMPRESSION: Intact ventral hernia repair TECHNICAL DOCUMENTATION: JOB ID: [id number] Quality ID # [id number]: Final reports with documentation of one or more dose reduction techniques (e.g., Au tomated exposure control, adjustment of the mA and/or kV according to patient size, use of iterative reconstruction technique) 2010 [employer]- All Rights Reserved Reading location - IP/workstation name: [email or web address]
== END ==
LOC: RAD 12:44
PROVIDERS: ATTEND Surgery
DX: R10.9 Unspecified abdominal pain (principal); Q61.02 Congenital multiple renal cysts
CPT/HCPCS: 74177; 82565

== ENCOUNTER → 2018-07-07 | Outpatient (CLI) | payer MEDICARE ==
--- NOTE | 2018-07-07 10:31 | RADIOLOGY REPORT (SQ) ---
EXAM DESCRIPTION: MRA ABDOMEN WITHOUT COMPLETED DATE/TIME: 07/07/2018 10:01 am REASON FOR STUDY: I12.9 HYPERTENSIVE CHRONIC KIDNEY DISEASE WITH STAGE 1 THROUGH STAGE 4 SECURITIES CLERK I12.9 HYPERTENSIVE CHRONIC KIDNEY DISEASE W STG 1-4/UNSP CHR COMPARISON: CT abdomen pelvis 06/16/2018 Abdominal films 05/12/2018 TECHNIQUE: Coronal and Axial imaging with T1 and T2 weighting through the kidneys. 3D bcmf-lu-jmbal t MRA exam with axial acquisitions, maximum intensity projected multiplanar reconstructions through t he renal arteries. 3-D MIPs performed at the work station. CONTRAST TYPE AND DOSE: No contrast RENAL FUNCTION: Not required LIMITATIONS: None. FINDINGS: KIDNEYS: Normal size kidneys bilaterally. Multiple bilateral renal cortical cysts. No hy dronephrosis. OTHER ABDOMINAL ORGANS: Stable retroperitoneal adenopathy with a 2 x 1.5 cm left retroperitoneal lymp h node near the renal artery on axial image 27, and a 3 x 1.5 cm left retroperitoneal lymph node near the renal artery axial image 31. BONY STRUCTURES: No significant finding as visualized. VASCULAR STRUCTURES: No significant finding. RIGHT RENAL ARTERY: A single renal artery. Normal without evidence for stenosis. LEFT RENAL ARTERY: A single renal artery. Normal without evidence for stenosis. AORTA, SMA, CELIAC AXIS AND ILIAC ARTERIES: No significant finding or stenosis. OTHER: No other significant finding. IMPRESSION: NORMAL MRA EXAM OF THE RIGHT AND LEFT RENAL ARTERIES. TECHNICAL DOCUMENTATION: JOB ID: [id number] [employer]- All Rights Reserved Reading location - IP/workstation name: [email or web address]
== END ==
LOC: RAD 08:36
PROVIDERS: ATTEND Internal Medicine Nephrology
DX: I12.9 Hypertensive chronic kidney disease with stage 1 through stage 4 chronic kidney disease, or unspecified chronic kidney disease (principal)
CPT/HCPCS: C8901

== ENCOUNTER 2018-07-12 12:27 | Day surgery (SDC) | payer MEDICARE ==
[~2018-07-12 12:27] MED LIST changes: +BACITRACIN INJ 50,000 UNIT VIAL ONE; +BUPIVACAINE HCL 0.25 % INJ/PF (2.5 MG/1 ML) 30 ML VIAL ONE; +HEPARIN SOD (PORCINE) 1,000 UNIT/ML 10 ML VIAL ONE; +LIDOCAINE 0.5% INJ-PF (5 MG/ML) 50 ML SDV ONE; +LIDOCAINE 1% INJ-PF (10 MG/ML) 30 ML SDV ONE
[2018-07-12 13:30] LABS: HEMATOCRIT 34.3 % (36.0-47.0); HEMOGLOBIN 11.1 g/dL (12.0-15.5); MEAN CORPUSCULAR HEMOGLOBIN 28.1 pg (27.0-33.4); MEAN CORPUSCULAR HGB CONC 32.4 g/dL (32.0-36.0); MEAN CORPUSCULAR VOLUME 87 fl (80-97); PLATELET COUNT 205 10^3/uL (150-450); RED BLOOD COUNT 3.96 10^6/uL (3.72-5.28); RED CELL DISTRIBUTION WIDTH 16.2 % (11.5-14.0); WHITE BLOOD COUNT 6.4 10^3/uL (4.0-10.5)
[2018-07-12] MEDS ORDERED: FENTANYL CITRATE INJ/PF 100 MCG/2 ML AMPUL ONE (13:38)
[2018-07-12] MEDS ORDERED: PROPOFOL INJ 200 MG/20 ML VIAL IV ONE (13:39)
[2018-07-12] MEDS ORDERED: ONDANSETRON HCL INJ/PF 4 MG/2 ML SDV ONE (13:39)
[2018-07-12] MEDS ORDERED: EPHEDRINE SULFATE INJ 50 MG/1 ML AMPULE ONE (13:39)
[2018-07-12] MEDS ORDERED: MIDAZOLAM 2 MG/2 ML INJ ONE (13:39)
[2018-07-12 13:56] LABS: ANION GAP 10 (5-19); BLOOD UREA NITROGEN 49 mg/dL (7-20); CALCIUM 9.3 mg/dL (8.4-10.2); CARBON DIOXIDE 27 mmol/L (22-30); CHLORIDE 100 mmol/L (98-107); GLUCOSE 228 mg/dL (75-110); POTASSIUM 4.5 mmol/L (3.6-5.0); SODIUM 137.4 mmol/L (137-145)
[2018-07-12] MEDS ORDERED: CEFAZOLIN 1 GM/D5W RTU 1 GM/50 ML RTUPB IV ONE (14:04)
[2018-07-12] MEDS ORDERED: PROMETHAZINE HCL INJ 25 MG/1 ML VIAL IV PRN ×2 (14:26)
[2018-07-12] MEDS ORDERED: LIDOCAINE 0.5% INJ-PF (5 MG/ML) 50 ML SDV ONE (14:26)
[2018-07-12] MEDS ORDERED: DIPHENHYDRAMINE HCL 50 MG/ML VIAL IV PRN (14:26)
[2018-07-12] MEDS ORDERED: LIDOCAINE 1% INJ-PF (10 MG/ML) 30 ML SDV ONE (14:26)
[2018-07-12] MEDS ORDERED: BUPIVACAINE HCL 0.25 % INJ/PF (2.5 MG/1 ML) 30 ML VIAL ONE (14:26)
[2018-07-12] MEDS ORDERED: MEPERIDINE HCL/PF INJ 25 MG/1 ML DISP.SYRIN IV PRN (14:26)
[2018-07-12] MEDS ORDERED: FENTANYL CITRATE INJ/PF 100 MCG/2 ML AMPUL IV PRN ×3 (14:26)
[2018-07-12] MEDS ORDERED: OXYCODONE-ACETAMINOPHEN 5-325 MG TABLET PO PRN ×2 (14:26)
--- NOTE | 2018-07-12 15:48 | Discharge Summary ---
Discharge Summary (SDC) - Discharge Final Diagnosis: #1 end-stage renal disease on hemodialysis. 2. PermCath in place. 3. Diabetes mellitus type 2. 4. Hypertension. Date of Surgery: 07/12/18 Discharge Date: 07/12/18 Condition: Good Treatment or Instructions: Discharge home [after recovery per ASU criteria]. Diet , [renal],as tolerated, when fully awake advance as tolerated. Activities within moderation encouraged. Follow up in my office by appointment in about [1 week]. Call for appointment. Leave wounds [covered], [keep clean and dry, until office visit in 1 week]. Hold of on school/work [until evaluation in office]. Meds per med rec. Percocet. May shower [in 48 hrs], [try to keep operated area as dry as possible]. Prescriptions: Oxycodone HCl/Acetaminophen [Percocet 5-325 mg Tablet] 1 tab PO ASDIR PRN #15 tab PRN Reason: Referrals: COLT MINOR PA-C [Primary Care Provider] - Discharge Diet: Other (Comments) - Diabetic, renal. Respiratory Treatments at Home: Deep Breathing/Coughing Discharge Activity: Activity As Tolerated Report the Following to Your Physician Immediately: Shortness of Breath, Unusual Bleeding
--- NOTE | 2018-07-12 15:54 | Operative Report ---
Operative Report DATE OF SURGERY: 07/12/18 PREOPERATIVE DIAGNOSIS: #1 end-stage renal disease on hemodialysis. 2. PermCa th in place. 3. Diabetes mellitus type 2. 4. Hypertension. POSTOPERATIVE DIAGNOSIS: #1 end-stage renal disease on hemodialysis. 2. PermCath in place. 3. Diabetes mellitus type 2. 4. Hypertension. OPERATION: Insertion of first stage transposed basilic vein fistula. Right arm. SURGEON: FREDO [employer]ULL [employer] WORKER: None. ANESTHESIA: LMAC TISSUE REMOVED OR ALTERED: Not applicable. COMPLICATIONS: None. ESTIMATED BLOOD LOSS: 10 mL. INTRAOPERATIVE FINDINGS: Of satisfactory caliber brachial artery and basilic fistula each about 3.5 mm internal diameter. Satisfactory construction of a fistula about 3 cm below the elbow. The cephalic in the forearm and the deep venous connections preserved. The fistula seem functional at the end of the procedure with an appropriate bruit. Somewhat unusual, suspecting atrial fibrillation. The hope is for this to mature and allow for second stage insertion in about a month. PROCEDURE: Operative Report PROCEDURE: After reviewing the procedure with the patient, [she] was taken to the operating room. The patient was sedated and the [right upper extremity] prepared with chlorhexidine and draped out with sterile linen. After the "" universal timeout", in which it was verified that the patient [received IV antibiotics] the procedure commenced. The sterilely sheathed ultrasound probe was used to evaluate the right upper venous and arterial systems, pertinent to the previously done vein mapping. Local anesthesia was infiltrated and a longitudinal incision made over the lower arm just below the antecubital fossa. Dissection proceeded through the subcutaneous tissues down to the basilic vein. The vein was dissected out proximally and distally for about 4 cm. Likewise major branches. The brachial artery dissected out for a distance of about 1.5 cm. Rubber loops were placed on either end. The patient was given 2500 units of heparin intravenously.. The artery was controlled proximally and distally with rubber loops. An arteriotomy approximately [1.5 cm] in length was made, the artery was irrigated proximally and distally with heparinized solution. The transected vein was now spatulated, it was then anastomosed end t to side into the brachial artery. This was done using a continuous suture of 6-0 Prolene. Controls of the fistula were now released and it was analyzed using a Doppler probe. Hemostasis was secured once optimal function was assured, the wound was irrigated with antibiotic containing solution and closed. Closure was done using interrupted 3-0 PDS for the subcutaneous tissues. The skin was closed using a continuous subcutaneous suture of 4-0 Monocryl which was reinforced with Steri-Strips over benzoin. I then left the operative field and returned with a stethoscope covered with a sterile Tegaderm dressing. This allowed external auscultation of the fistula. Auscultation was questionable. The wound was reopened and the system reevaluated. The basilic vein appeared appropriately dilated and had an excellent bruit to Doppler. The bruit was unusual as suggestive of atrial fibrillation. Wound was now irrigated and c losed once more with interrupted 3-0 PDS of the subcutaneous tissues and a continuous 4-0 Monocryl reinforced with Steri-Strips over the benzoin and then a dressing applied. DICTATING PHYSICIAN: FREDO CHARLES M.D.
[2018-07-12 17:58] VITALS: BP 175/78
== END 2018-07-12 17:40 | disposition home or self-care (01) ==
LOC: OROUT 12:27
PROVIDERS: ATTEND Surgery
DX: I12.0 Hypertensive chronic kidney disease with stage 5 chronic kidney disease or end stage renal disease (principal); E11.9 Type 2 diabetes mellitus without complications; N18.6 End stage renal disease; Z99.2 Dependence on renal dialysis; M43.00 Spondylolysis, site unspecified; E07.9 Disorder of thyroid, unspecified; R01.1 Cardiac murmur, unspecified; R00.0 Tachycardia, unspecified; E66.9 Obesity, unspecified; M19.90 Unspecified osteoarthritis, unspecified site; Z79.899 Other long term (current) drug therapy; Z79.84 Long term (current) use of oral hypoglycemic drugs; Z68.38 Body mass index [BMI] 38.0-38.9, adult
CPT/HCPCS: 36821; 36415; 85027; 80048; J2250; J3490 ×4; J0690; J3010; J1644; J2405; J2704; 1844

== ENCOUNTER → 2018-08-18 | Outpatient (CLI) | payer MEDICARE ==
[~2018-08-18] MED LIST changes: -BACITRACIN INJ 50,000 UNIT VIAL ONE; -BUPIVACAINE HCL 0.25 % INJ/PF (2.5 MG/1 ML) 30 ML VIAL ONE; -HEPARIN SOD (PORCINE) 1,000 UNIT/ML 10 ML VIAL ONE; -LIDOCAINE 0.5% INJ-PF (5 MG/ML) 50 ML SDV ONE; +LIDOCAINE 0.5% INJ-PF (5 MG/ML) 50 ML SDV SUBCUT PRN; -LIDOCAINE 1% INJ-PF (10 MG/ML) 30 ML SDV ONE; +NORMAL SALINE 1000 ML (RENAL PATIENTS) IV PRN
[2018-08-18 09:21] VITALS: BP 177/83
[2018-08-18 10:33] LABS: HEMATOCRIT 36.6 % (36.0-47.0); HEMOGLOBIN 12.2 g/dL (12.0-15.5); MEAN CORPUSCULAR HGB CONC 33.2 g/dL (32.0-36.0); MEAN CORPUSCULAR VOLUME 88 fl (80-97); PLATELET COUNT 202 10^3/uL (150-450); RED BLOOD COUNT 4.19 10^6/uL (3.72-5.28); RED CELL DISTRIBUTION WIDTH 15.5 % (11.5-14.0); WHITE BLOOD COUNT 7.4 10^3/uL (4.0-10.5)
[2018-08-18 11:05] LABS: ANION GAP 13 (5-19); BLOOD UREA NITROGEN 49 mg/dL (7-20); CALCIUM 9.7 mg/dL (8.4-10.2); CARBON DIOXIDE 26 mmol/L (22-30); CHLORIDE 98 mmol/L (98-107); GLUCOSE 228 mg/dL (75-110); POTASSIUM 4.7 mmol/L (3.6-5.0); SODIUM 137.3 mmol/L (137-145)
== END ==
LOC: OD 08:32 → EDSTATUS 08-23 13:00
PROVIDERS: ATTEND Surgery
DX: Z01.818 Encounter for other preprocedural examination (principal); M43.00 Spondylolysis, site unspecified; I12.9 Hypertensive chronic kidney disease with stage 1 through stage 4 chronic kidney disease, or unspecified chronic kidney disease; N18.9 Chronic kidney disease, unspecified; E11.22 Type 2 diabetes mellitus with diabetic chronic kidney disease; E66.9 Obesity, unspecified; E07.9 Disorder of thyroid, unspecified; R01.1 Cardiac murmur, unspecified; R00.0 Tachycardia, unspecified
CPT/HCPCS: 36415; 80048; 85027

== ENCOUNTER → 2018-09-17 | Outpatient (CLI) | payer MEDICARE ==
--- NOTE | 2018-09-17 14:21 | RADIOLOGY REPORT (SQ) ---
EXAM DESCRIPTION: CHEST PA/LATERAL COMPLETED DATE/TIME: 09/17/2018 1:08 pm REASON FOR STUDY: COUGH COMPARISON: 05/24/2018 EXAM PARAMETERS: NUMBER OF VIEWS: two views TECHNIQUE: Digital Frontal and Lateral radiographic views of the chest acquired. RADIATION DOSE: NA LIMITATIONS: none FINDINGS: LUNGS AND PLEURA: No opacities, masses or pneumothorax. No pleural effusion. MEDIASTINUM AND HILAR STRUCTURES: No masses or contour abnormalities. HEART AND VASCULAR STRUCTURES: Cardiomegaly. No pulmonary edema. BONES: No acute findings. HARDWARE: Dual-lumen catheter on the right. OTHER: No other significant finding. IMPRESSION: Cardiomegaly without pulmonary edema. TECHNICAL DOCUMENTATION: JOB ID: [id number] [employer] / [employer]- All Rights Reserved Reading location - IP/workstation name: [email or web address]
== END ==
LOC: OD 12:58
PROVIDERS: ATTEND Family Medicine
DX: I51.7 Cardiomegaly (principal); R05 Cough
CPT/HCPCS: 71046

== ENCOUNTER 2018-10-04 10:07 | Day surgery (SDC) | payer MEDICARE ==
[~2018-10-04 10:07] MED LIST changes: -LIDOCAINE 0.5% INJ-PF (5 MG/ML) 50 ML SDV SUBCUT PRN; -NORMAL SALINE 1000 ML (RENAL PATIENTS) IV PRN
[2018-10-04] MEDS ORDERED: BUPIVACAINE HCL 0.25 % INJ/PF (2.5 MG/1 ML) 30 ML VIAL ONE (10:16)
[2018-10-04] MEDS ORDERED: HEPARIN SOD (PORCINE) 1,000 UNIT/ML 10 ML VIAL ONE (10:16)
[2018-10-04] MEDS ORDERED: LIDOCAINE 0.5% INJ-PF (5 MG/ML) 50 ML SDV ONE (10:16)
[2018-10-04] MEDS ORDERED: LIDOCAINE 1% INJ-PF (10 MG/ML) 30 ML SDV ONE (10:16)
[2018-10-04] MEDS ORDERED: BACITRACIN INJ 50,000 UNIT VIAL ONE (10:17)
[2018-10-04] MEDS ORDERED: CEFAZOLIN 1 GM/D5W RTU 1 GM/50 ML RTUPB IV ONE (10:37)
[2018-10-04 10:40] LABS: HEMATOCRIT 37.1 % (36.0-47.0); HEMOGLOBIN 12.4 g/dL (12.0-15.5); MEAN CORPUSCULAR HEMOGLOBIN 29.1 pg (27.0-33.4); MEAN CORPUSCULAR HGB CONC 33.3 g/dL (32.0-36.0); MEAN CORPUSCULAR VOLUME 87 fl (80-97); PLATELET COUNT 217 10^3/uL (150-450); RED BLOOD COUNT 4.25 10^6/uL (3.72-5.28); RED CELL DISTRIBUTION WIDTH 15.8 % (11.5-14.0); WHITE BLOOD COUNT 7.4 10^3/uL (4.0-10.5)
[2018-10-04 11:01] LABS: ANION GAP 14 (5-19); BLOOD UREA NITROGEN 54 mg/dL (7-20); CALCIUM 9.8 mg/dL (8.4-10.2); CARBON DIOXIDE 23 mmol/L (22-30); CHLORIDE 99 mmol/L (98-107); GLUCOSE 207 mg/dL (75-110); POTASSIUM 4.8 mmol/L (3.6-5.0); SODIUM 135.7 mmol/L (137-145)
--- NOTE | 2018-10-04 11:26 | PDOC H&P ---
General Chief Complaint: The patient presents for a second stage right basilic transposition. - Current Medications/Allergies Home Medications: Clonidine HCl [Catapres 0.2 mg Tablet] 0.2 mg PO QID 05/13/18 Glipizide [Glipizide Xl] 10 mg PO BID 05/13/18 Lisinopril [Zestril] 20 mg PO BID 05/13/18 Metoprolol Tartrate [Lopressor 25 mg Tablet] 25 mg PO Q12 05/13/18 Furosemide [Lasix 20 mg Tablet] 1 tab PO DAILY 10/04/18 Levothyroxine Sodium [Synthroid 0.075 mg Tablet] 1 tab PO DAILY 10/04/18 Allergies/Adverse Reactions: No Known Allergies Allergy (Verified 08/18/18 09:00) Past Medical History Cardiac Medical History: Reports: Coronary Artery Disease - HIGH CHOL, Hyperlipidema, Hypertension - MEDICATED Denies: Myocardial Infarction Pulmonary Medical History: Denies: Asthma, Bronchitis - [place] 07/31, Chronic Obstructive Pulmonary Disease (COPD), Pneumonia Neurological Medical History: Denies: Seizures Endocrine Medical History: Reports: Diabetes Mellitus Type 2 GI Medical History: Denies: Hepatitis, Hiatal Hernia Musculoskeltal Medical History: Reports: Arthritis - NECK, BACK Hematology: Reports: Anemia - IRON INJECTION @ DIALYSIS Denies: Sickle Cell Disease Past Surgical History Past Surgical History: Reports: Appendectomy Denies: Amputation, Hysterectomy, Mastectomy - NO RESTRICTIONS, Pacemaker Family History Family History: Arthritis, DM, Hyperlipidemia, Hypertension, Malignancy Parental Family History Reviewed: No Children Family History Reviewed: No Sibling(s) Family History Reviewed.: No Social History Smoking Status: Never Smoker Physical Exam Vital Signs: Temp Pulse Resp BP Pulse Ox 98.5 F 57 L 16 181/106 H 100 10/04/18 10:43 10/04/18 10:43 10/04/18 10:43 10/04/18 10:43 10/04/18 10:43 Intake & Output 10/03/18 10/04/18 10/05/18 06:59 06:59 06:59 Intake Total 0 Balance 0 Weight 106.59 kg Additional comments: Constitutional: Well-developed well-nourished female, increased body mass index. No apparent acute distress. Eyes: Mucous membranes pink and moist, pupils equal and reactive to light. Conjunctiva normal. Cornea normal. Wears spectacles. ENT: Hearing grossly normal. External pinna normal to inspection. Teeth intact. Tongue normal to inspection. Cardiac: Heart sounds 1 and 2 normal, no murmurs. Respiratory: breath sounds are present bilaterally, normal. Normal respiratory effort. Skin: Normal to inspection. No ulcers, normal turgor. Psychiatric: Judgment, memory, insight seem normal. Mood is pleasant and appropriate. Extremities: Upper extremities show normal range of movement. Pulses present noted to the radial arteries. Capillary refill normal. No cyanosis noted. No muscle wasting noted. Right arm fistula noted. First stage basilic with well- healed scar just about the elbow. Nice thrill. Impression/Plan Plan: In this patient with end-stage renal disease on hemodialysis via a right-sided permacatheter, maturation of her arteriovenous fistula is to be desired. The objective is getting her onto dialysis via her fistula, removing the permacatheter. Ideally this could be done within 2-3 weeks after surgery. Ultimately this patient desires peritoneal dialysis. We can certainly work towards that. She did have an attempt however she had a large hernia which required treatment. She also proved to have severe constipation and a tendency towards gastroparesis. These will make peritoneal dialysis more challenging. The patient's diabetes is to be kept at control. The procedure of maturation is understood by the patient. It will require long incision from elbow to arm pain. The risks will include infection, bleeding, heart, lung complications, injury to other structures, fistula failure.
[2018-10-04] MEDS ORDERED: ACETAMINOPHEN 0 MG/0 ML RTUPB IV ONE (11:32)
[2018-10-04] MEDS ORDERED: ONDANSETRON HCL INJ/PF 4 MG/2 ML SDV ONE (11:32)
[2018-10-04] MEDS ORDERED: PROPOFOL INJ 200 MG/20 ML VIAL IV ONE (11:32)
[2018-10-04] MEDS ORDERED: MIDAZOLAM 2 MG/2 ML INJ ONE (11:32)
[2018-10-04] MEDS ORDERED: FENTANYL CITRATE INJ/PF 100 MCG/2 ML AMPUL ONE (11:32)
[2018-10-04] MEDS ORDERED: EPHEDRINE SULFATE INJ 50 MG/1 ML AMPULE ONE (11:33)
[2018-10-04] MEDS ORDERED: FENTANYL CITRATE INJ/PF 100 MCG/2 ML AMPUL IV PRN ×3 (12:47)
[2018-10-04] MEDS ORDERED: PROMETHAZINE HCL INJ 25 MG/1 ML VIAL IV PRN ×2 (12:47)
[2018-10-04] MEDS ORDERED: MEPERIDINE HCL/PF INJ 25 MG/1 ML DISP.SYRIN IV PRN (12:47)
[2018-10-04] MEDS ORDERED: DIPHENHYDRAMINE HCL 50 MG/ML VIAL IV PRN (12:47)
--- NOTE | 2018-10-04 13:35 | Progress Note ---
Provider Note Provider Note: The patient was found to have excessively high blood pressure after sedation. Blood pressure 240/140. This proved to be quite labile. In addition a pulse rate down to 40 with EKG changes pointed to the need for reassessment. The procedure was canceled and a consultation obtained from the hospitalist service. The patient is to be admitted to the IMCU for monitoring and adjustment of medications, management. I discussed this with Dr. Roman she any he will take over management of the patient in the IMCU. The hope is to stabilize this patient for discharge to hemodialysis and planning fistula insertion in about a week.
[2018-10-04] MEDS ORDERED: ACETAMINOPHEN 325 MG TABLET PO PRN (16:47)
[2018-10-04] MEDS ORDERED: DOCUSATE SODIUM 100 MG CAPSULE PO PRN (16:47)
[2018-10-04] MEDS ORDERED: ONDANSETRON 4 MG TAB.RAPDIS PO PRN (16:47)
[2018-10-04] MEDS ORDERED: DEXTROSE 40% GEL 15 GM TUBE PO PRN ×3 (17:02→19:00)
[2018-10-04] MEDS ORDERED: DEXTROSE 50%-WATER 25 GM/50 ML DISP.SYRIN IV PRN ×2 (17:02)
[2018-10-04] MEDS ORDERED: GLUCAGON,HUMAN RECOMB 1 MG INJ IM PRN ×2 (17:02→19:00)
[2018-10-04] MEDS ORDERED: METOPROLOL TARTRATE 25 MG TABLET PO SCH (18:00)
--- NOTE | 2018-10-04 18:03 | PDOC PROGRESS REPORT ---
Subjective Progress Note for:: 10/04/18 Subjective:: The patient was in the OR for the next step in forming a dialysis fistula in the right arm. She was medicated for surgery. All of a sudden her heart rate dropped and systolic blood pressure spiked. I do not have the vital signs from the operating room. Dr. Huerta stated that her systolic pressure got as high as 240 and her pulse dropped into the 40s. The surgery was canceled and Dr. Huerta requested that the hospitalist admit the patient for this acute change. Reason For Visit: N18.9 CHRONIC KIDNEY DISEASE, UNSPECIFIED Hypertensive urgency Physical Exam Vital Signs: Temp Pulse Resp BP Pulse Ox 97.6 F 56 L 16 158/48 H 99 10/04/18 15:08 10/04/18 15:08 10/04/18 15:08 10/04/18 15:08 10/04/18 15:08 Intake & Output 10/03/18 10/04/18 10/05/18 06:59 06:59 06:59 Intake Total 550 Balance 550 Weight 110.9 kg General appearance: PRESENT: no acute distress, cooperative, obese - BMI 40.7, well-developed Head exam: PRESENT: atraumatic, normocephalic Eye exam: PRESENT: conjunctiva pale, EOMI. ABSENT: nystagmus, scleral icterus Ear exam: PRESENT: normal external ear exam Mouth exam: PRESENT: dry mucosa, neck supple, tongue midline Neck exam: ABSENT: carotid bruit, lymphadenopathy Respiratory exam: PRESENT: rales - Faint rales noted at right base., symmetrical, unlabored. ABSENT: accessory muscle use, rhonchi, wheezes Cardiovascular exam: PRESENT: RRR, +S1, +S2, systolic murmur - 3/8 Pulses: PRESENT: normal dorsalis pedis pul GI/Abdominal exam: PRESENT: normal bowel sounds, soft. ABSENT: distended, guarding, tenderness Rectal exam: PRESENT: deferred Gentrourinary exam: ABSENT: indwelling catheter Extremities exam: PRESENT: pedal edema - Trace. ABSENT: calf tenderness Musculoskeletal exam: PRESENT: ambulatory Neurological exam: PRESENT: alert, awake, oriented to person, oriented to place, oriented to time, oriented to situation, CN II-XII grossly intact Psychiatric exam: PRESENT: appropriate affect, normal mood. ABSENT: agitated, anxious Focused psych exam: ABSENT: delusional, restlessness Skin exam: PRESENT: other - Patient reports some redness at the dialysis catheter site. There is a circumferential area of mild erythema. There are no vesicles or pustules. Results Laboratory Results: 10/04/18 10:27 10/04/18 10:27 10/04/18 10/04/18 10:27 10:27 WBC 7.4 RBC 4.25 Hgb 12.4 Hct 37.1 MCV 87 MCH 29.1 MCHC 33.3 RDW 15.8 H Plt Count 217 Sodium 135.7 L Potassium 4.8 Chloride 99 Carbon Dioxide 23 Anion Gap 14 BUN 54 H Creatinine 3.62 H Est GFR ( Amer) 15 L Est GFR (Non-Af Amer) 12 L Glucose 207 H Calcium 9.8 Assessment and Plan - Diagnosis (1) Hypertension Qualifiers: Hypertension type: essential hypertension Qualified Code(s): I10 - Essential (primary) hypertension Is this a current diagnosis for this admission?: Yes Plan: The patient was medicated prior to surgery and her blood pressure one half. I did review the medication administration record. She was given 50 mg of ephedrine sulfate and this is the most likely factor instigating a spike in blood pressure. I would have expected tachycardia but she was bradycardic. During our discussion she states that her blood pressure always ranges between 150 and 180 and occasionally over 200. There were some discrepancies in the medication. She thought she was on clonidine 4 times a day and is listed at 3 times a day. She also reports that she was changed to torsemide but only furos emide is listed. Pharmacy is working on reconciling her medication list. We do have spironolactone 25 mg daily, hydralazine 50 mg twice daily, clonidine 0.2 mg 3 times a day, metoprolol tartrate 25 mg twice daily and lisinopril 20 mg twice daily as her cardiac medication regimen. (2) Hypertension associated with stage 5 chronic kidney disease due to type 2 diabetes mellitus Is this a current diagnosis for this admission?: Yes Plan: As noted above the patient reports long history of hypertension. She states that her normal blood pressure ranges typically 150-180. Occasionally she is above 200. It is not our goal to pressure her blood pressure down to 120. If we can keep it in the 140-150 range that would be good. (3) Paroxysmal supraventricular tachycardia Is this a current diagnosis for this admission?: Yes Plan: The patient in fact became bradycardic. She is on metoprolol 25 mg twice daily. It was expected her heart rate increases along with her blood pressure. We will continue current medications. I have put parameters to hold the metoprolol for bradycardia. (4) End-stage renal disease on hemodialysis Is this a current diagnosis for this admission?: Yes Plan: The patient appears to be back at her baseline with regard to vital signs. I am going to monitor her overnight with a goal of discharging her in time to get to her hemodialysis appointment at 11:00. It is important that she does not miss this appointment. (5) Obstructive sleep apnea Is this a current diagnosis for this admission?: Yes Plan: The patient does have a CPAP machine at home. As she was expecting to have a surgical procedure and go home she did not bring her CPAP machine with her. She is expected to be discharged tomorrow morning and therefore I will not have her try and have family member bring it in today. (6) Diabetes mellitus type 2 in obese Is this a current diagnosis for this admission?: Yes Plan: Will place her on her glipizide 10 mg twice daily and utilize a sliding scale for Accu-Chek coverage. (7) Hypothyroidism Qualifiers: Hypothyroidism type: other Qualified Code(s): E03.8 - Other specified hypothyroidism Is this a current diagnosis for this admission?: Yes Plan: The patient states that she was started on levothyroxine after "nodules" were found on her thyroid. She was not aware of exactly what the nodules were. She has not undergone any part of thyroidectomy. We will continue current levo thyroxine dose. (8) Spondylolisthesis of lumbar region Is this a current diagnosis for this admission?: Yes Plan: The patient has chronic neck and back pain from spondylolisthesis. She reports that she does have a prescription for narcotic pain medication but she never uses it. Continue conservative measures. With her underlying kidney disease, nonsteroidal anti-inflammatory medications contraindicated. She might consider trying topical Arnica gel. (9) Spondylolisthesis of cervical region Is this a current diagnosis for this admission?: Yes Plan: As above (10) Obesity, Class III, BMI 40-49.9 (morbid obesity) Is this a current diagnosis for this admission?: Yes Plan: Patient's BMI is 40.7. We will encourage ongoing diabetic diet at discharge. She may also benefit from low impact exercise. - Time Time Spent with patient: 60 minutes was dedicated to this admission. Time Spent with patient: 35 or more minutes Medications reviewed and adjusted accordingly: Yes Anticipated discharge: Home Within: within 24 hours
[2018-10-04] MEDS: CLONIDINE HCL 0.2 MG TABLET PO SCH (18:06)
[2018-10-04] MEDS: HYDRALAZINE HCL 50 MG TABLET PO SCH (18:06)
[2018-10-04] MEDS: SPIRONOLACTONE 25 MG TABLET PO SCH (18:06)
[2018-10-04] MEDS ORDERED: INSULIN LISPRO 100 UNIT/ML 3 ML VIAL ONE (18:51)
[2018-10-04] MEDS ORDERED: DEXTROSE 40% GEL 15 GM TUBE X 2 PO PRN (19:00)
[2018-10-04] MEDS ORDERED: DEXTROSE 50%-WATER SYRINGE 25 GM/50 ML DOSE IV PRN (19:00)
[2018-10-04] MEDS ORDERED: DEXTROSE 50%-WATER SYRINGE 12.5 GM/25 ML DOSE IV PRN (19:00)
--- NOTE | 2018-10-04 21:25 | EKG REPORT ---
SEVERITY:- ABNORMAL ECG - SINUS RHYTHM LEFT AXIS DEVIATION LEFT VENTRICULAR HYPERTROPHY : Confirmed by: Lorelei Armstrong MD 04-Oct-2018 21:24:51
[2018-10-04] MEDS: GLIPIZIDE XL 5 MG TAB.ER.24 PO SCH (21:31)
[2018-10-04] MEDS: LISINOPRIL 10 MG TABLET PO SCH (21:31)
[2018-10-04] MEDS: INSULIN LISPRO 100 UNIT/ML 3 ML VIAL SUBCUT SCH (21:32)
[2018-10-04] MEDS: HEPARIN SOD (PORCINE) 5,000 UNIT/ML 1 ML SYRINGE SUBCUT SCH (21:33)
[2018-10-04] MEDS: METOPROLOL TARTRATE 25 MG TABLET PO SCH (21:33)
[2018-10-04] MEDS ORDERED: INSULIN LISPRO 100 UNIT/ML 3 ML VIAL SUBCUT SCH (22:00)
[2018-10-04] MEDS ORDERED: SIMVASTATIN 40 MG TABLET PO SCH (22:00)
[2018-10-05] MEDS: HEPARIN SOD (PORCINE) 5,000 UNIT/ML 1 ML SYRINGE SUBCUT SCH (05:47)
[2018-10-05] MEDS ORDERED: LEVOTHYROXINE SODIUM 0.05 MG TABLET PO SCH (06:00)
[2018-10-05 06:54] LABS: ALBUMIN 3.3 g/dL (3.5-5.0); ANION GAP 12 (5-19); BLOOD UREA NITROGEN 63 mg/dL (7-20); CALCIUM 9.6 mg/dL (8.4-10.2); CARBON DIOXIDE 25 mmol/L (22-30); CHLORIDE 100 mmol/L (98-107); GLUCOSE 146 mg/dL (75-110); PHOSPHORUS 6.4 mg/dL (2.5-4.5); SODIUM 137.1 mmol/L (137-145)
[2018-10-05] MEDS ORDERED: FUROSEMIDE 20 MG TABLET PO SCH ×2 (08:00→10:00)
[2018-10-05] MEDS: INSULIN LISPRO 100 UNIT/ML 3 ML VIAL SUBCUT SCH (08:06)
[2018-10-05 08:28] VITALS: BP 184/76
[2018-10-05] MEDS ORDERED: FUROSEMIDE 40 MG TABLET PO ONE (09:00)
[2018-10-05] MEDS: GLIPIZIDE XL 5 MG TAB.ER.24 PO SCH (09:13)
[2018-10-05] MEDS: LISINOPRIL 10 MG TABLET PO SCH (09:13)
[2018-10-05] MEDS: SPIRONOLACTONE 25 MG TABLET PO SCH (09:13)
[2018-10-05] MEDS: METOPROLOL TARTRATE 25 MG TABLET PO SCH (09:13)
[2018-10-05] MEDS: HYDRALAZINE HCL 50 MG TABLET PO SCH (09:15)
[2018-10-05] MEDS: CLONIDINE HCL 0.2 MG TABLET PO SCH (09:15)
--- NOTE | 2018-10-05 11:48 | PDOC DISCHARGE SUMMARY ---
General - Admit/Disc Date/PCP Admission Date/Primary Care Provider: SANCHEZ RODRIGUEZ MD Discharge Date: 10/05/18 - Discharge Diagnosis (1) Hypertension Is this a current diagnosis for this admission?: Yes Summary: Patient reports that her blood pressure is always between 170 and 200. Nephrology has made recent adjustments to her medications. These were not accurately reflected in her reconciliation. Her last blood pressure this morning was 160/80 which for her is quite good. I told her to return to the exact regimen that nephrology prescribed which includes torsemide but no longer has furosemide and hydralazine as part of her regimen. Most importantly, the patient received intravenous ephedrine which caused her blood pressure to spike. (2) Hypertension associated with stage 5 chronic kidney disease due to type 2 diabetes mellitus Is this a current diagnosis for this admission?: Yes Summary: The patient was unable to have the next stage of her surgery for fistula formation. I did discuss this with Dr. Huerta. I told the patient to call Dr. Huerta office to reschedule her visit. (3) Paroxysmal supraventricular tachycardia Is this a current diagnosis for this admission?: Yes Summary: Good control with metoprolol. No episodes of ventricular tachycardia. (4) End-stage renal disease on hemodialysis Is this a current diagnosis for this admission?: Yes Summary: The patient is discharged early this morning so that she can make her outpatient dialysis slot at 11:00. (5) Obstructive sleep apnea Is this a current diagnosis for this admission?: Yes Summary: She did not have her CPAP machine with her and she did not expect to stay in the hospital. Strongly encouraged her to be compliant with her CPAP. (6) Diabetes mellitus type 2 in obese Is this a current diagnosis for this admission?: Yes Summary: Her glucose is quite poorly controlled. I do not believe the glipizide is adequate. I will defer to her primary care team for better adjustment of her diabetes regimen. At this point I believe she will end up on insulin. (7) Hypothyroidism Is this a current diagnosis for this admission?: Yes Summary: Her levothyroxine dose remained unchanged. (8) Spondylolisthesis of lumbar region Is this a current diagnosis for this admission?: Yes Summary: She will resume her current treatment plan. She should avoid nonsteroidal anti- inflammatory medications with her underlying kidney disease and hypertension. (9) Spondylolisthesis of cervical region Is this a current diagnosis for this admission?: Yes Summary: As above (10) Obesity, Class III, BMI 40-49.9 (morbid obesity) Is this a current diagnosis for this admission?: Yes Summary: The patient should initiate an exercise with strict diet. The combination of obesity and diabetes continues to keep her at high risk for heart disease. She is already a dialysis patient. At the diagnosis of obstructive sleep apnea and she has significant health risks. Weight loss would be very beneficial for her. - Additional Information Discharge Diet: Cardiac, Diabetic, Other (Comments) - Renal Discharge Activity: Activity As Tolerated Home Medications: Clonidine HCl [Catapres 0.2 mg Tablet] 0.2 mg PO TID 10/04/18 Glipizide [Glipizide Xl] 10 mg PO BIDBS 10/04/18 Ipratropium [place] 2 spray NASL TID 10/04/18 Levothyroxine Sodium 50 mcg PO Q6AM 10/04/18 Lisinopril [Zestril] 20 mg PO BID 10/04/18 Metoprolol Tartrate [Lopressor 25 mg Tablet] 25 mg PO BID 10/04/18 Simvastatin [Zocor 40 mg Tablet] 40 mg PO QHS 10/04/18 Spironolactone [Aldactone 25 mg Tablet] 25 mg PO BID 10/04/18 Lisinopril [Prinivil 10 mg Tablet] 20 mg PO Q12 tablet 10/05/18 History of Present Illness Patient complains of: Referred from Dr. Huerta for acute hypertension in the operating room History of Present Illness: ARUNA ALLEN is a 68 year old female with a history of progressive kidney disease that is now end-stage requiring dialysis. She has severe hypertension as well as uncontrolled diabetes. During a procedure to continue with the formation of her AV fistula for dialysis her blood pressure spiked and her pulse dropped and Dr. Prisca Huerta referred her to the hospitalist for management. Hospital Course Hospital Course: The patient did have a benign hospital course. She received intravenous ephedrine prior to the procedure and this likely spiked her blood pressure. Ov ernight her blood pressure fluctuated, and this is most likely her normal blood pressure pattern. There were no acute events, heart irregularities or complications. She is discharged this morning so that she can make her dialysis appointment as an outpatient. Physical Exam Vital Signs: Temp Pulse Resp BP Pulse Ox 97.4 F 66 20 160/80 H 98 10/05/18 03:44 10/05/18 03:44 10/05/18 03:44 10/05/18 03:44 10/05/18 03:44 Intake & Output 10/04/18 10/05/18 10/06/18 06:59 06:59 06:59 Intake Total 550 Output Total 550 Balance 0 Weight 111.8 kg General appearance: PRESENT: no acute distress, cooperative, obese, well- developed Head exam: PRESENT: atraumatic, normocephalic Eye exam: PRESENT: conjunctiva pale. ABSENT: scleral icterus Ear exam: PRESENT: normal external ear exam Mouth exam: PRESENT: moist, tongue midline Respiratory exam: PRESENT: clear to auscultation vadim, symmetrical, unlabored. ABSENT: accessory muscle use, rales, rhonchi, wheezes Cardiovascular exam: PRESENT: RRR, +S1, +S2, systolic murmur - 3/6 GI/Abdominal exam: PRESENT: normal bowel sounds, soft. ABSENT: distended, guarding, tenderness Rectal exam: PRESENT: deferred Extremities exam: ABSENT: pedal edema Neurological exam: PRESENT: alert, awake, oriented to person, oriented to place, oriented to time, oriented to situation Psychiatric exam: PRESENT: appropriate affect, normal mood. ABSENT: agitated, anxious Focused psych exam: ABSENT: delusional, restlessness Results Laboratory Results: 10/04/18 10:27 10/05/18 05:40 10/04/18 10/04/18 10/05/18 10:27 10:27 05:40 WBC 7.4 RBC 4.25 Hgb 12.4 Hct 37.1 MCV 87 MCH 29.1 MCHC 33.3 RDW 15.8 H Plt Count 217 Sodium 135.7 L 137.1 Potassium 4.8 5.0 Chloride 99 100 Carbon Dioxide 23 25 Anion Gap 14 12 BUN 54 H 63 H Creatinine 3.62 H 3.99 H Est GFR ( Amer) 15 L 13 L Est GFR (Non-Af Amer) 12 L 11 L Glucose 207 H 146 H Calcium 9.8 9.6 Phosphorus 6.4 H Magnesium 2.4 H Albumin 3.3 L Qualifiers - * PATIENT BEING DISCHARGED WITH ANY OF THE FOLLOWING DIAGNOSIS: No Plan Discharge Plan: The patient will keep her dialysis appointment as scheduled. She will return to the medication regimen with recent changes by nephrology. Her reaction to ephedrine will be noted and discussed with pharmacy and placed on the allergy/adverse reaction list. Time Spent: Greater than 30 Minutes
== END 2018-10-05 09:27 | disposition home or self-care (01) ==
LOC: OROUT 10:07 → 3S 15:13 → OROUT 10-05 09:27
PROVIDERS: ATTEND Hospitalist
DX: I12.0 Hypertensive chronic kidney disease with stage 5 chronic kidney disease or end stage renal disease (principal); E11.22 Type 2 diabetes mellitus with diabetic chronic kidney disease; N18.6 End stage renal disease; Z99.2 Dependence on renal dialysis; Z79.84 Long term (current) use of oral hypoglycemic drugs; Z79.899 Other long term (current) drug therapy; Z88.8 Allergy status to other drugs, medicaments and biological substances; I10 Essential (primary) hypertension; E78.00 Pure hypercholesterolemia, unspecified; E78.5 Hyperlipidemia, unspecified; D64.9 Anemia, unspecified; E66.9 Obesity, unspecified; Z68.38 Body mass index [BMI] 38.0-38.9, adult
CPT/HCPCS: 80069; 36415; 82962; 83735; 85027; 80048; 93005; 93010; 36821; G0378 ×2; G0379; J2250; J3490 ×5; J1644 ×3; J0690; A9270 ×13; J3010; J2704; 1844; J0131; J1815; J2405

== ENCOUNTER 2018-11-01 10:04 | Day surgery (SDC) | payer MEDICARE ==
[~2018-11-01 10:04] MED LIST changes: +LIDOCAINE 2% INJ-PF (20 MG/ML) 2 ML AMPUL ONE
--- NOTE | 2018-11-01 10:28 | PDOC H&P ---
General Chief Complaint: The patient is admitted for second stage insertion of a right basilic transposition. A previous attempt was halted because of excessively high blood pressure. Since then the patient has had a stress test, cardiac catheterization and optimization. - Current Medications/Allergies Home Medications: Clonidine HCl [Catapres 0.2 mg Tablet] 0.2 mg PO TID 10/04/18 Glipizide [Glipizide Xl] 10 mg PO BIDBS 10/04/18 Ipratropium [place] 2 spray NASL TID 10/04/18 Levothyroxine Sodium 50 mcg PO Q6AM 10/04/18 Lisinopril [Zestril] 20 mg PO BID 10/04/18 Metoprolol Tartrate [Lopressor 25 mg Tablet] 25 mg PO BID 10/04/18 Simvastatin [Zocor 40 mg Tablet] 40 mg PO QHS 10/04/18 Spironolactone [Aldactone 25 mg Tablet] 25 mg PO BID 10/04/18 Allergies/Adverse Reactions: ephedrine Adverse Reaction (Verified 10/05/18 11:50) Hypertension Past Medical History Cardiac Medical History: Reports: Coronary Artery Disease - HIGH CHOL, Hyperlipidema, Hypertension - MEDICATED Denies: Myocardial Infarction Pulmonary Medical History: Denies: Asthma, Bronchitis - [place] 07/31, Chronic Obstructive Pulmonary Disease (COPD), Pneumonia Neurological Medical History: Denies: Seizures Endocrine Medical History: Reports: Diabetes Mellitus Type 2 GI Medical History: Denies: Hepatitis, Hiatal Hernia Musculoskeltal Medical History: Reports: Arthritis - NECK, BACK Psychiatric Medical History: Denies: Depression Hematology: Reports: Anemia - IRON INJECTION @ DIALYSIS Denies: Sickle Cell Disease Past Surgical History Past Surgical History: Reports: Appendectomy Denies: Amputation, Hysterectomy, Mastectomy - NO RESTRICTIONS, Pacemaker Family History Family History: Arthritis, DM, Hyperlipidemia, Hypertension, Malignancy Parental Family History Reviewed: No Children Family History Reviewed: No Sibling(s) Family History Reviewed.: No Social History Smoking Status: Never Smoker Frequency of Alcohol Use: None Hx Recreational Drug Use: No Drugs: None Hx Prescription Drug Abuse: No Physical Exam Additional comments: Constitutional: Well-developed well-nourished lady, increased body m ass index. No apparent acute distress. Eyes: Mucous membranes pink and moist, pupils equal and reactive to light. Conjunctiva normal. Cornea normal. ENT: Hearing grossly normal. External pinna normal to inspection. Teeth intact. Tongue normal to inspection. Cardiac: Heart sounds normal. Respiratory: Normal respiratory effort. S Psychiatric: Judgment, memory, insight seem normal. Mood is pleasant and appropriate. Extremities: Upper extremities show normal range of movement. Pulses present noted to the radial arteries. Capillary refill normal. No cyanosis noted. No muscle wasting noted. Right first stage transposed basilic vein fistula in place. L Impression/Plan Plan: In this patient with a first he has basilic fistula in the right arm, dialyzed through a right-sided permacatheter second stage transposition is indicated. The purpose system get the patient on fistula dialysis as soon as possible and to remove the permacatheter. The procedure of transposition is understood by the patient. She is eager to go ahead. Her questions and concerns a dose of her addressed. The plan is to go ahead with transposition today, hopefully as an outpatient. With respect to the underlying pathologies and her previous difficulties with anesthesia.
[2018-11-01 11:10] LABS: INTERNATIONAL RATION (INR) 0.99; PROTHROMBIN TIME 13.5 SEC (11.4-15.4)
[2018-11-01 11:11] LABS: PARTIAL THROMBOPLASTIN TIME 31.5 SEC (23.5-35.8)
[2018-11-01 11:13] LABS: APPEARANCE,URINE CLEAR; BILIRUBIN,URINE NEGATIVE (NEGATIVE); COLOR,URINE YELLOW; GLUCOSE, URINE 50 mg/dL (NEGATIVE); KETONES,URINE NEGATIVE (NEGATIVE); LEUKOCYTE ESTERASE,URINE NEGATIVE (NEGATIVE); NITRITE,URINE NEGATIVE (NEGATIVE); PROTEIN,URINE >=500 mg/dL (NEGATIVE); UROBILINOGEN,URINE NEGATIVE mg/dL (<2.0)
[2018-11-01] MEDS ORDERED: CEFAZOLIN 1 GM/D5W RTU 1 GM/50 ML RTUPB IV ONE (11:41)
[2018-11-01 11:44] LABS: HEMATOCRIT 35.9 % (36.0-47.0); HEMOGLOBIN 11.9 g/dL (12.0-15.5); MEAN CORPUSCULAR HEMOGLOBIN 29.3 pg (27.0-33.4); MEAN CORPUSCULAR HGB CONC 33.3 g/dL (32.0-36.0); MEAN CORPUSCULAR VOLUME 88 fl (80-97); PLATELET COUNT 178 10^3/uL (150-450); RED BLOOD COUNT 4.08 10^6/uL (3.72-5.28); RED CELL DISTRIBUTION WIDTH 15.5 % (11.5-14.0); WHITE BLOOD COUNT 7.7 10^3/uL (4.0-10.5)
--- NOTE | 2018-11-01 11:51 | RADIOLOGY REPORT (SQ) ---
EXAM DESCRIPTION: CHEST SINGLE VIEW COMPLETED DATE/TIME: 11/01/2018 10:48 am REASON FOR STUDY: PREOP COMPARISON: 09/17/2018 EXAM PARAMETERS: NUMBER OF VIEWS: One view. TECHNIQUE: Single frontal radiographic view of the chest acquired. RADIATION DOSE: NA LIMITATIONS: None. FINDINGS: LUNGS AND PLEURA: No opacities, masses or pneumothorax. No pleural effusion. MEDIASTINUM AND HILAR STRUCTURES: No masses. Contour normal. HEART AND VASCULAR STRUCTURES: Cardiomegaly. Normal vasculature. BONES: No acute findings. HARDWARE: Dual lumen catheter on the right, stable finding. OTHER: No other significant finding. IMPRESSION: 1. No significant interval changes since the prior study dated 09/17/2018. No acute find ings. 2. Cardiomegaly, stable finding. TECHNICAL DOCUMENTATION: JOB ID: [id number] [employer] All Rights Reserved Reading location - IP/workstation name: [email or web address]
[2018-11-01] MEDS ORDERED: BUPIVACAINE HCL 0.25 % INJ/PF (2.5 MG/1 ML) 30 ML VIAL ONE ×3 (12:35→14:48)
[2018-11-01] MEDS ORDERED: BACITRACIN INJ 50,000 UNIT VIAL ONE (12:36)
[2018-11-01] MEDS ORDERED: HEPARIN SOD (PORCINE) 1,000 UNIT/ML 10 ML VIAL ONE ×2 (12:36→13:17)
[2018-11-01] MEDS ORDERED: LIDOCAINE 1% INJ-PF (10 MG/ML) 30 ML SDV ONE ×2 (12:36→13:09)
[2018-11-01] MEDS ORDERED: LIDOCAINE 0.5% INJ-PF (5 MG/ML) 50 ML SDV ONE ×2 (12:36→14:48)
[2018-11-01] MEDS ORDERED: PROPOFOL INJ 200 MG/20 ML VIAL IV ONE ×2 (13:08→15:56)
[2018-11-01] MEDS ORDERED: MIDAZOLAM 2 MG/2 ML INJ ONE (13:08)
[2018-11-01] MEDS ORDERED: FENTANYL CITRATE INJ/PF 100 MCG/2 ML AMPUL ONE ×2 (13:09→17:07)
[2018-11-01] MEDS ORDERED: KETAMINE HCL INJ 500 MG/10 ML VIAL ONE (13:09)
[2018-11-01] MEDS ORDERED: PROMETHAZINE HCL INJ 25 MG/1 ML VIAL IV PRN ×2 (14:15)
[2018-11-01] MEDS ORDERED: FENTANYL CITRATE INJ/PF 100 MCG/2 ML AMPUL IV PRN ×3 (14:15)
[2018-11-01] MEDS ORDERED: DIPHENHYDRAMINE HCL 50 MG/ML VIAL IV PRN (14:15)
[2018-11-01] MEDS ORDERED: OXYCODONE-ACETAMINOPHEN 5-325 MG TABLET PO PRN ×2 (14:15)
[2018-11-01] MEDS ORDERED: MEPERIDINE HCL/PF INJ 25 MG/1 ML DISP.SYRIN IV PRN (14:15)
--- NOTE | 2018-11-01 15:31 | EKG REPORT ---
SEVERITY:- ABNORMAL ECG - SINUS RHYTHM MULTIPLE ATRIAL PREMATURE COMPLEXES FIRST DEGREE AV BLOCK LEFT AXIS DEVIATION LEFT VENTRICULAR HYPERTROPHY : Confirmed by: Tyler Quach MD 01-Nov-2018 15:30:10
--- NOTE | 2018-11-01 17:00 | Discharge Summary ---
Discharge Summary (SDC) - Discharge Final Diagnosis: #[address] 2. End-stage renal disease on hemodialysis. 3. Diabetes mellitus type 2 and obese. 4. Obese. 5. Hypertension. Date of Surgery: 11/01/18 Discharge Date: 11/01/18 Condition: Fair Treatment or Instructions: Discharge home [after recovery per ASU criteria]. Diet , [renal],as tolerated, when fully awake advance as tolerated. Activities within moderation encouraged. Follow up in my office by appointment in about [1 week]. Call for appointment. Leave wounds [covered], [keep clean and dry, until office visit in 1 week]. Empty drain as needed. Hold of on school/work [until evaluation in office]. Meds per med rec. Percocet. May shower [in 48 hrs], [try to keep operated area as dry as possible]. Prescriptions: Oxycodone HCl/Acetaminophen [Percocet 5-325 mg Tablet] 1 tab PO ASDIR PRN #15 tab PRN Reason: Referrals: MARY ELMOER MD [Primary Care Provider] - Discharge Diet: Other (Comments) - Renal, diabetic. Report the Following to Your Physician Immediately: Unusual Bleeding
[2018-11-01] MEDS ORDERED: METOPROLOL TARTRATE PF/INJ 5 MG/5 ML SDV IV ONE (17:04)
--- NOTE | 2018-11-01 17:04 | Operative Report ---
Operative Report DATE OF SURGERY: 11/01/18 PREOPERATIVE DIAGNOSIS: #[address] 2. End-stage renal disease on h emodialysis. 3. Diabetes mellitus type 2 and obese. 4. Obese. 5. Hypertension. POSTOPERATIVE DIAGNOSIS: #[address] 2. End-stage renal disease on hemodialysis. 3. Diabetes mellitus type 2 and obese. 4. Obese. 5. Hypertension. OPERATION: Second stage basilic transposition, right arm. SURGEON: FREDO BULL COPPING MACHINE OPERATOR: None. ANESTHESIA: LMAC TISSUE REMOVED OR ALTERED: Not applicable. COMPLICATIONS: None. ESTIMATED BLOOD LOSS: 20 mL. INTRAOPERATIVE FINDINGS: Of a large, robust basilic vein easily 7 mm in diameter. Transposed laterally with a potential target zone of about 12 cm. Somewhat challenging to feel under the skin, even with sitting out because of adiposity. PROCEDURE: Operative Report PROCEDURE: After reviewing the procedure with the patient, and her family, she was taken to the operating room. The patient was sedated and the right upper extremity prepared with chlorhexidine and draped out with sterile linen. After the "" universal timeout", in which it was verified that the patient [received IV antibiotics] the procedure commenced. The sterilely sheathed ultrasound probe was used to evaluate the size and topographic location of the existing veins. The fistula function was noted. This was transcribed topographical using a marking pen. Local anesthesia was i nfiltrated and a longitudinal incision started just above the elbow and dissection proceeded down to the vein. Sequential infiltration of local anesthesia, incision and dissection of the vein proceeded up to the axillary fold. The basilic vein was now dissected away from its branches which were either clipped and/or ligated and divided. In this way the basilic vein was freed up for its entire visible length. Its length was now measured with a dry umbilical tape which was used to transpose a tunnel onto the skin anteriorly and laterally. With this marked in ink, local anesthesia was infiltrated in the skin and subcutaneous tissue of the tunnel. A Florien tunneler was now inserted and the tunnel exposed. Serial sutures of 3-0 PDS were placed at about 3 cm intervals and placed on clamps. These gave lateral traction. Cautery was now used to incise the subcutaneous tissues so as to reveal the Florien tunneler. The length of the basilic vein was now shifted into the tunnel and sustained th ere by interrupted sutures of 3-0 PDS placed from the subcutaneous tissue on one side of the tunnel to the other. Once this was done the lateral flap was now approximated to the medial flap using interrupted sutures of 3-0 PDS. The fistula was interrogated from time to time to make sure that it was patent. A 15 [place] Kareem drain was placed deep in the wound and exiting inferiorly the it was sutured using 2-0 Prolene. The skin was closed with a continuous subcutaneous suture of 4-0 Monocryl. Steri-Strips were applied over benzoin and then a Kerlix wrap. The procedure was concluded. Copies dictated operative report to Dr. Fredo Huerta MD thank you. DICTATING PHYSICIAN: FREDO HUERTA M.D
[2018-11-01] MEDS ORDERED: OXYCODONE-ACETAMINOPHEN 5-325 MG TABLET ONE (18:21)
[2018-11-01 19:37] VITALS: BP 183/89
--- NOTE | 2018-11-01 19:40 | RADIOLOGY REPORT (SQ) ---
EXAM DESCRIPTION: HUMERUS RIGHT COMPLETED DATE/TIME: 11/01/2018 5:15 pm REASON FOR STUDY: PRECAUTIONARY - OR count wrong, sponge found just before xray N18.9 CHRONIC KIDNE Y DISEASE, UNSPECIFIED N18.6 END STAGE RENAL DISEASE COMPARISON: None. NUMBER OF VIEWS: One view. TECHNIQUE: Frontal radiographic image was acquired of the right humerus to include elbow and shoulde r in at least one projection. LIMITATIONS: None. FINDINGS: Postsurgical changes are present in the medial soft tissues of the right upper extremity v ascular catheter and multiple surgical luz elena present. No surgical sponge identified in the field o f view. IMPRESSION: Postsurgical changes are present in the medial soft tissues of the right upper extremity vascular catheter and multiple surgical luz elena present. No surgical sponge identified in the field of view. TECHNICAL DOCUMENTATION: JOB ID: [id number] [employer]- All Rights Reserved Reading location - IP/workstation name: [email or web address]
== END 2018-11-01 19:38 | disposition home or self-care (01) ==
LOC: OROUT 10:04
PROVIDERS: ATTEND Surgery
DX: I12.0 Hypertensive chronic kidney disease with stage 5 chronic kidney disease or end stage renal disease (principal); E11.22 Type 2 diabetes mellitus with diabetic chronic kidney disease; N18.6 End stage renal disease; Z99.2 Dependence on renal dialysis; Z79.84 Long term (current) use of oral hypoglycemic drugs; Z79.899 Other long term (current) drug therapy; I25.10 Atherosclerotic heart disease of native coronary artery without angina pectoris; E78.00 Pure hypercholesterolemia, unspecified; E78.5 Hyperlipidemia, unspecified; J44.9 Chronic obstructive pulmonary disease, unspecified; E66.9 Obesity, unspecified; Z68.38 Body mass index [BMI] 38.0-38.9, adult; I49.9 Cardiac arrhythmia, unspecified; E07.9 Disorder of thyroid, unspecified; R00.1 Bradycardia, unspecified; R01.1 Cardiac murmur, unspecified; Z01.818 Encounter for other preprocedural examination
CPT/HCPCS: 01844; 36415; 71045; 81001; 82962; 84132; 85027; 85610; 85730; 93005; 93010; J0690; J1644; J2250; J2704; J3010; J3490

== ENCOUNTER 2019-01-03 11:03 | Day surgery (SDC) | payer MEDICARE ==
[~2019-01-03 11:03] MED LIST changes: -CEFAZOLIN 1 GM/D5W RTU 1 GM/50 ML RTUPB IV PRN; +DIAZEPAM 5 MG TABLET PO SCH; -LIDOCAINE 2% INJ-PF (20 MG/ML) 2 ML AMPUL ONE
[2019-01-03] MEDS ORDERED: LIDOCAINE 0.5% INJ-PF (5 MG/ML) 50 ML SDV ONE (11:55)
[2019-01-03] MEDS ORDERED: MIDAZOLAM 2 MG/2 ML INJ ONE (11:56)
[2019-01-03] MEDS ORDERED: FENTANYL CITRATE INJ/PF 100 MCG/2 ML AMPUL ONE (11:56)
[2019-01-03] MEDS ORDERED: HEPARIN SOD (PORCINE) 5,000 UNIT/ML 1 ML SYRINGE ONE (11:56)
[2019-01-03 12:35] LABS: ABSOLUTE BASOPHILS # (AUTO) 0.1 10^3/uL (0.0-0.2); ABSOLUTE EOSINOPHILS # (AUTO) 0.1 10^3/uL (0.0-0.6); ABSOLUTE LYMPHOCYTES (AUTO) 1.1 10^3/uL (0.5-4.7); ABSOLUTE MONOCYTES (AUTO) 0.7 10^3/uL (0.1-1.4); ABSOLUTE NEUT (AUTO) 5.6 10^3/uL (1.7-8.2); BASOPHILS % (AUTO) 0.8 % (0-2); EOSINOPHILS % (AUTO) 1.7 % (0-6); HEMATOCRIT 31.6 % (36.0-47.0); HEMOGLOBIN 10.5 g/dL (12.0-15.5); LYMPHOCYTES % (AUTO) 14.9 % (13-45); MEAN CORPUSCULAR HEMOGLOBIN 29.3 pg (27.0-33.4); MEAN CORPUSCULAR HGB CONC 33.2 g/dL (32.0-36.0); MEAN CORPUSCULAR VOLUME 88 fl (80-97); MONOCYTES % (AUTO) 8.7 % (3-13); PLATELET COUNT 165 10^3/uL (150-450); RED BLOOD COUNT 3.58 10^6/uL (3.72-5.28); RED CELL DISTRIBUTION WIDTH 16.3 % (11.5-14.0); SEGMENTED NEUTROPHILS % (AUTO) 73.9 % (42-78); TOTAL CELLS COUNTED % (AUTO) 100 %; WHITE BLOOD COUNT 7.6 10^3/uL (4.0-10.5)
[2019-01-03] MEDS ORDERED: DIAZEPAM 5 MG TABLET ONE (12:52)
[2019-01-03 12:59] LABS: ANION GAP 11 (5-19); BLOOD UREA NITROGEN 56 mg/dL (7-20); CALCIUM 9.6 mg/dL (8.4-10.2); CARBON DIOXIDE 26 mmol/L (22-30); CHLORIDE 97 mmol/L (98-107); GLUCOSE 209 mg/dL (75-110); POTASSIUM 5.8 mmol/L (3.6-5.0); SODIUM 134.1 mmol/L (137-145)
[2019-01-03] MEDS ORDERED: SODIUM POLYSTYRENE SULFONATE 15 GM/60 ML PO ONE (13:30)
--- NOTE | 2019-01-03 14:49 | Discharge Summary ---
Discharge Summary (SDC) - Discharge Final Diagnosis: #1 malfunctioning AV fistula, right transposed basilic. 2. End-stage renal disease on hemodialysis. 3. PermCath in place. 4. Diabetes mellitus type 2. 5. Hypertension. Date of Surgery: 01/03/19 Discharge Date: 01/03/19 Condition: Fair Treatment or Instructions: Discharge home [after recovery per ASU criteria]. Diet , [renal],as tolerated, when fully awake advance as tolerated. Activities within moderation encouraged. Follow up in my office by appointment in about [1 week]. Call for appointment. Leave wounds [covered], [keep clean and dry, until office visit in 1 week]. Meds per med rec. May shower [in 48 hrs], [try to keep operated area as dry as possible]. Referrals: MARY ELMORE MD [Primary Care Provider] - Discharge Diet: Other (Comments) - Renal, diabetic. Respiratory Treatments at Home: Deep Breathing/Coughing Discharge Activity: Activity As Tolerated Report the Following to Your Physician Immediately: Shortness of Breath, Unusual Bleeding
--- NOTE | 2019-01-03 14:53 | Operative Report ---
Operative Report DATE OF SURGERY: 01/03/19 PREOPERATIVE DIAGNOSIS: 1 malfunctioning AV fistula, right transposed basilic. 2. End-stage renal disease on hemodialysis. 3. PermCath in place. 4. Diabetes mellitus type 2. 5. Hypertension. POSTOPERATIVE DIAGNOSIS: 1 malfunctioning AV fistula, right transposed basilic. 2. End-stage renal disease on hemodialysis. 3. PermCath in place. 4. Diabetes mellitus type 2. 5. Hypertension. OPERATION: 1. Ultrasound evaluation and guided access into arteriovenous fistula. 2. Angioplasty in arterial and. 3. Angioplasty and body of fistula. 4. Angiogram and interpretation. SURGEON: FREDO BULL BUNCHER MACHINE: None. ANESTHESIA: Moderate Sedation TISSUE REMOVED OR ALTERED: Not applicable. COMPLICATIONS: None. ESTIMATED BLOOD LOSS: 5 mL. INTRAOPERATIVE FINDINGS: Of a well founded right transposed basilic fistula, somewhat deep and hard to palpate. Angiographic findings suggest a stenosis in the first 2 cm. The arterial diameters actually quite substantial between 5 and 6 mm. The proximal fistula was addressed with a 5 mm angioplasty balloon with a lot of improvement in the arteriographic appearance and also, more importantly, and the use of palpation of the fistula. The body of the fistula was dilated up to 8 mm which again was angiographically evident and also to increased palpation. PROCEDURE: PROCEDURE: After verifying the procedure and having obtained informed consent, the patient's right arm and forearm were prepared with Chlorhexidine and draped out with sterile linen. Local anesthesia infiltrated. Percutaneous access into the fistula ,[retrograde], obtained about [20 cm] from the arteriovenous anastomosis using a micro puncture needle followed by micro puncture wire and then a micro puncture catheter. This was done on ultrasound guidance using real-time access into the vein. Ultrasound was also used to size the vein. Angiogram demonstrated the aforementioned findings. Angioplasty was elected. A 0.035 [place] wire was inserted, and over this, a 6 [place]ian short introducer was placed, this was followed by a 5 mm angioplasty balloon . Angioplasty was now done at the brachial artery just before the anastomosis and over the anastomotic and perianastomotic segment. Th is was done very carefully and using a 3 mm syringe for 1 minute. Angiogram demonstrated successful outcome. The balloon was now swapped over the wire for a 8 mm angioplasty balloon. Angioplasty was Done in the body of the fistula, inflating with a 3 mils syringe. Inflating for a minute at a time.]. Completion angiogram demonstrated [satisfactory result]. The instrumentation was now withdrawn over a short piece of catheter and hand pressure for 5 minutes 5. Dressings applied, procedure concluded. Exposure time: 1.3 minutes Radiation: 5.54 Nancy bullock. Contrast: 25 mL of Isovue-M 300 low osmolality. DICTATING PHYSICIAN: FREDO CHARLES M.D. cc: FREDO CHARLES M.D. ([id number]) >>
[2019-01-03] MEDS ORDERED: OXYCODONE-ACETAMINOPHEN 5-325 MG TABLET ONE (15:07)
--- NOTE | 2019-01-03 15:10 | RADIOLOGY REPORT (SQ) ---
EXAM DESCRIPTION: FISTULAGRAM W/PLASTY COMPLETED DATE/TIME: 01/03/2019 3:02 pm REASON FOR STUDY: T82.858A T82.858A STENOSIS OF OTHER VASCULAR PROSTH DEV/GRFT, INIT COMPARISON: None. FLUOROSCOPY TIME: 1.3 minute. 96 images saved to PACS. TECHNIQUE: Intra-operative images acquired during surgical procedure to evaluate progress. NUMBER OF IMAGES: 96 LIMITATIONS: None. FINDINGS: Imaging in fluoroscopy during right upper extremity dialysis access evaluation and plasty by Dr. Huerta . Please refer to the operative report for further details. IMPRESSION: INTRA PROCEDURAL IMAGING ABOVE . COMMENT: Quality ID 145: Final reports for procedures using fluoroscopy that document radiation exp osure indices, or exposure time and number of fluorographic images (if radiation exposure indices are not available) Please consult full operative report of the attending physician for description of the procedure. TECHNICAL DOCUMENTATION: JOB ID: [id number] [employer]- All Rights Reserved Reading location - IP/workstation name: [email or web address]
[2019-01-03 16:06] VITALS: BP 172/78
== END 2019-01-03 16:05 | disposition home or self-care (01) ==
LOC: CCL 11:03
PROVIDERS: ATTEND Surgery
DX: T82.858A Stenosis of other vascular prosthetic devices, implants and grafts, initial encounter (principal); Y83.2 Surgical operation with anastomosis, bypass or graft as the cause of abnormal reaction of the patient, or of later complication, without mention of misadventure at the time of the procedure; I12.0 Hypertensive chronic kidney disease with stage 5 chronic kidney disease or end stage renal disease; E11.22 Type 2 diabetes mellitus with diabetic chronic kidney disease; N18.6 End stage renal disease; E07.9 Disorder of thyroid, unspecified; M43.00 Spondylolysis, site unspecified; R01.1 Cardiac murmur, unspecified; R00.0 Tachycardia, unspecified; E66.9 Obesity, unspecified; Z99.2 Dependence on renal dialysis; Z79.899 Other long term (current) drug therapy; Z79.84 Long term (current) use of oral hypoglycemic drugs
CPT/HCPCS: 36415; 82962; 85025; 80048; 36902; 76937; C1725 ×2; C1752; C1887; C1769; J2250; J1644 ×2; A9270 ×2; J3010; J3490

== ENCOUNTER 2019-04-12 10:18 | Day surgery (SDC) | payer MEDICARE ==
[~2019-04-12 10:18] MED LIST changes: +DIAZEPAM 5 MG TABLET PO PRN; -DIAZEPAM 5 MG TABLET PO SCH
[2019-04-12] MEDS ORDERED: DIAZEPAM 5 MG TABLET ONE (10:42)
[2019-04-12 10:53] LABS: HEMATOCRIT 31.5 % (36.0-47.0); HEMOGLOBIN 10.4 g/dL (12.0-15.5); MEAN CORPUSCULAR HEMOGLOBIN 28.7 pg (27.0-33.4); MEAN CORPUSCULAR HGB CONC 32.9 g/dL (32.0-36.0); MEAN CORPUSCULAR VOLUME 87 fl (80-97); PLATELET COUNT 147 10^3/uL (150-450); RED BLOOD COUNT 3.61 10^6/uL (3.72-5.28); RED CELL DISTRIBUTION WIDTH 14.1 % (11.5-14.0); WHITE BLOOD COUNT 6.5 10^3/uL (4.0-10.5)
[2019-04-12] MEDS ORDERED: LIDOCAINE 0.5% INJ-PF (5 MG/ML) 50 ML SDV ONE (11:14)
[2019-04-12] MEDS ORDERED: MIDAZOLAM 2 MG/2 ML INJ ONE (11:14)
[2019-04-12] MEDS ORDERED: FENTANYL CITRATE INJ/PF 100 MCG/2 ML AMPUL ONE (11:15)
[2019-04-12] MEDS ORDERED: HEPARIN SOD (PORCINE) 5,000 UNIT/ML 1 ML VIAL ONE (11:15)
[2019-04-12 11:25] LABS: ANION GAP 10 (5-19); BLOOD UREA NITROGEN 42 mg/dL (7-20); CALCIUM 9.4 mg/dL (8.4-10.2); CARBON DIOXIDE 29 mmol/L (22-30); CHLORIDE 96 mmol/L (98-107); GLUCOSE 380 mg/dL (75-110); POTASSIUM 4.6 mmol/L (3.6-5.0)
--- NOTE | 2019-04-12 14:05 | RADIOLOGY REPORT (SQ) ---
EXAM DESCRIPTION: FISTULAGRAM W/PLASTY COMPLETED DATE/TIME: 04/12/2019 12:54 pm REASON FOR STUDY: T82.858A T82.858A STENOSIS OF OTHER VASCULAR PROSTH DEV/GRFT, INIT COMPARISON: 01/03/2019. FLUOROSCOPY TIME: 0.6 minutes. 106 images saved to PACS. TECHNIQUE: Intra-operative images acquired during surgical procedure to evaluate progress. NUMBER OF IMAGES: 106 images. LIMITATIONS: None. FINDINGS: Imaging in fluoroscopy during right upper extremity dialysis access evaluation and plasty by Dr. Huerta . Please refer to the operative report for further details. IMPRESSION: INTRA PROCEDURAL IMAGING ABOVE . COMMENT: Quality ID 145: Final reports for procedures using fluoroscopy that document radiation exp osure indices, or exposure time and number of fluorographic images (if radiation exposure indices are not available) Please consult full operative report of the attending physician for description of the procedure. TECHNICAL DOCUMENTATION: JOB ID: [id number] [employer]- All Rights Reserved Reading location - IP/workstation name: [email or web address]
[2019-04-12 15:05] VITALS: BP 148/55
--- NOTE | 2019-04-12 15:11 | PDOC H&P ---
General Chief Complaint: The patient was admitted for treatment of a right arm AV fistula which is been functioning inadequately. - Diagnosis (1) Dialysis AV fistula malfunction Is this a Current Diagnosis?: Yes (2) End-stage renal disease on hemodialysis Is this a Current Diagnosis?: Yes (3) Diabetes mellitus type 2 in obese Is this a Current Diagnosis?: Yes (4) Hypertension Is this a Current Diagnosis?: Yes (5) Obesity, Class III, BMI 40-49.9 (morbid obesity) Is this a Current Diagnosis?: Yes (6) Obstructive sleep apnea Is this a Current Diagnosis?: Yes (7) Paroxysmal supraventricular tachycardia Is this a Current Diagnosis?: Yes - Current Medications/Allergies Home Medications: Clonidine HCl [Catapres 0.2 mg Tablet] 0.2 mg PO TID 10/04/18 Glipizide [Glipizide Xl] 10 mg PO BIDBS 10/04/18 Levothyroxine Sodium 50 mcg PO Q6AM 10/04/18 Metoprolol Tartrate [Lopressor 25 mg Tablet] 25 mg PO BID 10/04/18 Simvastatin [Zocor 40 mg Tablet] 40 mg PO QHS 10/04/18 Hydralazine HCl [Apresoline 25 mg Tablet] 25 mg PO TID 11/01/18 Ropinirole HCl 0.5 mg PO QHS 11/01/18 Torsemide [Demadex 20 mg Tablet] 40 mg PO BID 11/01/18 Hum Insulin NPH/Reg Insulin Hm [Novolin 70-30 100 Unit/ml Vial] 10 units SUBCUT QHS 01/03/19 Hum Insulin NPH/Reg Insulin Hm [Novolin 70-30 100 Unit/ml Vial] 20 units SUBCUT QAM 01/03/19 Spironolactone [Aldactone 25 mg Tablet] 25 mg PO DAILY 01/03/19 Allergies/Adverse Reactions: ephedrine Adverse Reaction (Verified 04/12/19 10:33) Hypertension Past Medical History Cardiac Medical History: Reports: Coronary Artery Disease - HIGH CHOL, Hyperlipidema, Hypertension - MEDICATED Denies: Myocardial Infarction Pulmonary Medical History: Denies: Asthma, Bronchitis - BRONCHITIS 07/31, Chronic Obstructive Pulmonary Disease (COPD), Pneumonia Neurological Medical History: Denies: Seizures Endocrine Medical History: Reports: Diabetes Mellitus Type 2 GI Medical History: Denies: Hepatitis, Hiatal Hernia Musculoskeltal Medical History: Reports: Arthritis - NECK, BACK Psychiatric Medical History: Denies: Depression Hematology: Reports: Anemia - IRON INJECTION @ DIALYSIS Denies: Sickle Cell Disease Past Surgical History Past Surgical History: Reports: Appendectomy Denies: Amputation, Hysterectomy, Mastectomy - NO RESTRICTIONS, Pacemaker Family History Family History: Arthritis, DM, Hyperlipidemia, Hypertension, Malignancy Parental Family History Reviewed: No Children Family History Reviewed: No Sibling(s) Family History Reviewed.: No Social History Smoking Status: Never Smoker Frequency of Alcohol Use: None Hx Recreational Drug Use: No Drugs: None Hx Prescription Drug Abuse: No Physical Exam Vital Signs: Temp Pulse Resp BP Pulse Ox 97.2 F 88 18 148/55 H 98 04/12/19 14:00 04/12/19 14:00 04/12/19 14:00 04/12/19 14:00 04/12/19 14:00 Intake & Output 04/11/19 04/12/19 04/13/19 06:59 06:59 06:59 Intake Total 0 Balance 0 Weight 108.862 kg Additional comments: Constitutional: Well-developed well-nourished lady, obese body habitus. No apparent acute distress. Eyes: Mucous membranes pink and moist, pupils equal and reactive to light. Conjunctiva normal. Cornea normal. Wears spectacles. ENT: Hearing grossly normal. External pinna normal to inspection. Teeth intact. Tongue normal to inspection. Cardiac: Heart sounds 1 and 2 normal, no murmurs. Respiratory: Normal respiratory effort. Skin: Normal to inspection. No ulcers, normal turgor. Psychiatric: Judgment, memory, insight seem normal. Mood is pleasant and appropriate. Extremities: Upper extremities show normal range of movement. Pulses present noted to the radial arteries. Capillary refill normal. No cyanosis noted. No muscle wasting noted. Right arm transposed basilic vein fistula in place, functioning, firm suggesting cephalad stenosis. Neurovascular: No apparent tremors, gait normal. Sensation grossly intact. Hearing grossly normal. Vison grossly intact. Impression/Plan Plan: In this patient with a firm fistula suggesting cephalad stenosis, angiogram is recommended. Possibly angioplasty. The procedure, its risks, benefits, expected outcome and alternatives are familiar to the patient and she wishes to proceed.
--- NOTE | 2019-04-12 15:12 | Discharge Summary ---
Discharge Summary (SDC) - Discharge Final Diagnosis: #1 malfunctioning AV fistula. 2. End-stage renal disease on hemodialysis. 3. Obesity. 4. Dysrhythmia. 5. Diabetes mellitus type 2. 6. Hypertension. Date of Surgery: 04/12/19 Discharge Date: 04/12/19 Condition: Fair Forms: Sedation D/C Instructions, Discharge POC-Surgical Service Treatment or Instructions: Discharge home [after recovery per ASU criteria]. Diet , [renal],as tolerated, when fully awake advance as tolerated. Activities within moderation encouraged. Follow up in my office by appointment in about [1 week]. Call for appointment. Leave wounds [covered], [keep clean and dry, until dialysis]. Meds per med rec. May shower [in 48 hrs], [try to keep operated area as dry as possible]. Referrals: FREDO CHARLES MD [ACTIVE STAFF] - Respiratory Treatments at Home: Deep Breathing/Coughing Discharge Activity: Activity As Tolerated, Balance Activity w/Rest, No Driving, No Lifting Over 10 Pounds, No Lifting/Push/Pulling Home Care Assistance: None Needed Report the Following to Your Physician Immediately: Shortness of Breath, Nausea, Vomiting, Increase in Pain, Fever over 101 Degrees, Unusual Bleeding, Redness, IV Site Infection Signs
--- NOTE | 2019-04-12 15:16 | Operative Report ---
Operative Report DATE OF SURGERY: 04/12/19 PREOPERATIVE DIAGNOSIS: #1 malfunctioning AV fistula. 2. End-stage renal dise ase on hemodialysis. 3. Obesity. 4. Dysrhythmia. 5. Diabetes mellitus type 2. 6. Hypertension. POSTOPERATIVE DIAGNOSIS: #1 malfunctioning AV fistula. 2. End-stage renal disease on hemodialysis. 3. Obesity. 4. Dysrhythmia. 5. Diabetes mellitus type 2. 6. Hypertension. OPERATION: 1. Needle access of the fistula. 2. Fistula angioplasty. 3. Angiogram and interpretation. SURGEON: FREDO BULL JEWELRY ENGRAVER: None. ANESTHESIA: Moderate Sedation TISSUE REMOVED OR ALTERED: Not applicable. COMPLICATIONS: None. ESTIMATED BLOOD LOSS: 2 mL. INTRAOPERATIVE FINDINGS: Of a satisfactory right transposed basilic vein fistula, somewhat firm suggesting cephalad stenosis. Angiogram was confirmatory with a tight stenosis about 20 cm from the anastomosis. Adjacent collateral attest to its hemodynamic significance. The stenosis was about 80% of the adjacent lumen. Corrected with past 5% residual stenosis. The firmness of the fistula markedly improved after angioplasty, confirming the success of the hemodynamic intervention. PROCEDURE: PROCEDURE: After verifying the procedure and having obtained informed consent, the patient's right arm was prepared with Chlorhexidine and draped out with sterile linen. Local anesthesia infiltrated. Percutaneous access into the fistula ,[ antegrade], obtained about 4 cm] from the arteriovenous anastomosis using a micro puncture needle followed by micro puncture wire and then a micro puncture catheter. A 0.035 [place] wire was inserted, and over this, a 7 Urdu short introducer was placedAngiogram demonstrated the aforementioned findings. Angioplasty was elected., this was followed by a [7-mm] angioplasty balloon . Angioplasty was done at the culprit area using an 8 mm balloon. Inflating with a 3 mils syringe for for 2 minutes at a time.]. Angiogram demonstrated residual stenosis and the inflation was repeated. Completion angiogram demonstrated [satisfactory result]. The instrumentation was now withdrawn over hand pressure for 10 minutes . Dressings applied, procedure concluded. DICTATING PHYSICIAN: FREDO CHARLES M.D. cc: FREDO CHARLES M.D. ([id number]) >>
== END 2019-04-12 14:20 | disposition home or self-care (01) ==
LOC: CCL 10:18
PROVIDERS: ATTEND Surgery
DX: T82.858A Stenosis of other vascular prosthetic devices, implants and grafts, initial encounter (principal); Y83.2 Surgical operation with anastomosis, bypass or graft as the cause of abnormal reaction of the patient, or of later complication, without mention of misadventure at the time of the procedure; E11.22 Type 2 diabetes mellitus with diabetic chronic kidney disease; I12.0 Hypertensive chronic kidney disease with stage 5 chronic kidney disease or end stage renal disease; N18.6 End stage renal disease; Z99.2 Dependence on renal dialysis; J44.9 Chronic obstructive pulmonary disease, unspecified; I25.10 Atherosclerotic heart disease of native coronary artery without angina pectoris; E78.00 Pure hypercholesterolemia, unspecified; E78.5 Hyperlipidemia, unspecified; D64.9 Anemia, unspecified; M47.9 Spondylosis, unspecified; E66.01 Morbid (severe) obesity due to excess calories; I49.9 Cardiac arrhythmia, unspecified; R00.0 Tachycardia, unspecified; R01.1 Cardiac murmur, unspecified; E07.9 Disorder of thyroid, unspecified; Z68.41 Body mass index [BMI] 40.0-44.9, adult; Z79.84 Long term (current) use of oral hypoglycemic drugs; Z79.899 Other long term (current) drug therapy; Z79.4 Long term (current) use of insulin
CPT/HCPCS: 36415; 85027; 80048; 36902; C1725; C1752; Q9967; C1769; J2250; J1644 ×2; A9270; J3010; J3490

== ENCOUNTER 2019-08-16 08:42 | Day surgery (SDC) | payer MEDICARE ==
[~2019-08-16 08:42] MED LIST changes: +OXYCODONE-ACETAMINOPHEN 5-325 MG TABLET PO PRN
[2019-08-16 09:52] LABS: HEMATOCRIT 29.9 % (36.0-47.0); MEAN CORPUSCULAR HEMOGLOBIN 28.9 pg (27.0-33.4); MEAN CORPUSCULAR HGB CONC 33.4 g/dL (32.0-36.0); MEAN CORPUSCULAR VOLUME 87 fl (80-97); PLATELET COUNT 168 10^3/uL (150-450); RED BLOOD COUNT 3.46 10^6/uL (3.72-5.28); RED CELL DISTRIBUTION WIDTH 14.2 % (11.5-14.0); WHITE BLOOD COUNT 5.9 10^3/uL (4.0-10.5)
[2019-08-16 10:02] LABS: ANION GAP 11 (5-19); BLOOD UREA NITROGEN 36 mg/dL (7-20); CALCIUM 8.9 mg/dL (8.4-10.2); CARBON DIOXIDE 28 mmol/L (22-30); CHLORIDE 94 mmol/L (98-107); GLUCOSE 381 mg/dL (75-110); POTASSIUM 4.7 mmol/L (3.6-5.0)
[2019-08-16] MEDS ORDERED: LIDOCAINE 0.5% INJ-PF (5 MG/ML) 50 ML SDV ONE (10:25)
[2019-08-16] MEDS ORDERED: MIDAZOLAM 2 MG/2 ML INJ ONE (10:25)
[2019-08-16] MEDS ORDERED: FENTANYL CITRATE INJ/PF 100 MCG/2 ML AMPUL ONE (10:26)
[2019-08-16] MEDS ORDERED: HEPARIN SOD (PORCINE) 5,000 UNIT/ML 1 ML VIAL ONE (10:26)
--- NOTE | 2019-08-16 12:04 | PDOC H&P ---
General Chief Complaint: The patient presents because of malfunctioning of her A. v fistula. - Diagnosis (1) Dialysis AV fistula malfunction Is this a Current Diagnosis?: Yes (2) Diabetes mellitus type 2 in obese Is this a Current Diagnosis?: Yes (3) End-stage renal disease on hemodialysis Is this a Current Diagnosis?: Yes (4) Hypertension Is this a Current Diagnosis?: Yes - Current Medications/Allergies Home Medications: Clonidine HCl [Catapres 0.2 mg Tablet] 0.2 mg PO TID 10/04/18 Glipizide [Glipizide Xl] 10 mg PO BIDBS 10/04/18 Levothyroxine Sodium 50 mcg PO Q6AM 10/04/18 Metoprolol Tartrate [Lopressor 25 mg Tablet] 25 mg PO BID 10/04/18 Simvastatin [Zocor 40 mg Tablet] 40 mg PO QHS 10/04/18 Hydralazine HCl [Apresoline 25 mg Tablet] 50 mg PO TID 11/01/18 Ropinirole HCl 0.5 mg PO QHS 11/01/18 Torsemide [Demadex 20 mg Tablet] 40 mg PO BID 11/01/18 Calcium Carbonate [Tums] 750 mg PO TID 08/16/19 Insulin Aspart Prot/Insuln Asp [Novolog Mix 70-30 Flexpen] 10 units SUBCUT QHS 08/16/19 Insulin Aspart Prot/Insuln Asp [Novolog Mix 70-30 Flexpen] 20 ml SUBCUT ACBRKFST 08/16/19 Allergies/Adverse Reactions: ephedrine Adverse Reaction (Verified 04/12/19 10:33) Hypertension Past Medical History Cardiac Medical History: Reports: Coronary Artery Disease - HIGH CHOL, Hyperlipidema, Hypertension - MEDICATED Denies: Myocardial Infarction Pulmonary Medical History: Denies: Asthma, Bronchitis - BRONCHITIS 07/31, Chronic Obstructive Pulmonary Disease (COPD), Pneumonia Neurological Medical History: Denies: Seizures Endocrine Medical History: Reports: Diabetes Mellitus Type 2 GI Medical History: Denies: Hepatitis, Hiatal Hernia Musculoskeltal Medical History: Reports: Arthritis - NECK, BACK Psychiatric Medical History: Denies: Depression Hematology: Reports: Anemia - IRON INJECTION @ DIALYSIS Denies: Sickle Cell Disease Past Surgical History Past Surgical History: Reports: Appendectomy Denies: Amputation, Hysterectomy, Mastectomy - NO RESTRICTIONS, Pacemaker Family History Family History: Arthritis, DM, Hyperlipidemia, Hypertension, Malignancy Parental Family History Reviewed: No Children Family History Reviewed: No Sibling(s) Family History Reviewed.: No Social History Smoking Status: Never Smoker Frequency of Alcohol Use: None Hx Recreational Drug Use: No Drugs: None Hx Prescription Drug Abuse: No Physical Exam Vital Signs: Temp Pulse Resp BP Pulse Ox 98.2 F 98 16 165/79 H 98 08/16/19 09:40 08/16/19 09:40 08/16/19 09:40 08/16/19 09:40 08/16/19 09:40 Intake & Output 08/15/19 08/16/19 08/17/19 06:59 06:59 06:59 Weight 109.316 kg Additional comments: Constitutional: Well-developed well-nourished lady, increased body mass index no apparent acute distress. Eyes: Mucous membranes pink and moist, pupils equal and reactive to light. Conjunctiva normal. Cornea normal. ENT: Hearing grossly normal. External pinna normal to inspection. Teeth intact. Tongue normal to inspection. Cardiac: Heart sounds normal. Respiratory: Normal respiratory effort. Psychiatric: Judgment, memory, insight seem normal. Mood is pleasant and appropriate. Extremities: Upper extremities show normal range of movement. Pulses present noted to the radial arteries. Capillary refill normal. No cyanosis noted. No muscle wasting noted. Right arm transposed basilic fistula in place, very firm suggesting cephalad stenosis. L Impression/Plan Plan: Fistula angiogram and possibly angioplasty recommended. The patient is agreeable. We will proceed.
--- NOTE | 2019-08-16 12:06 | Discharge Summary ---
Discharge Summary (SDC) - Discharge Final Diagnosis: #1 AV fistula malfunction, right transposed basilic. 2. End-stage renal disease on hemodialysis. 3. Diabetes mellitus type 2. 4. Hypertension. Date of Surgery: 08/16/19 Discharge Date: 08/16/19 Condition: Good Treatment or Instructions: Discharge home [after recovery per ASU criteria]. Diet , [renal],as tolerated, when fully awake advance as tolerated. Activities within moderation encouraged. Follow up in my office by appointment in about [1 week]. Call for appointment. Leave wounds [covered], [keep clean and dry, until office visit in 1 month. Meds per med rec. May shower [in 48 hrs], [try to keep operated area as dry as possible]. Referrals: COLT MINOR PA-C [Primary Care Provider] - Discharge Diet: Other (Comments) - Renal, diabetic. Respiratory Treatments at Home: Deep Breathing/Coughing Discharge Activity: Activity As Tolerated Report the Following to Your Physician Immediately: Unusual Bleeding
--- NOTE | 2019-08-16 12:10 | Operative Report ---
Operative Report DATE OF SURGERY: 08/16/19 PREOPERATIVE DIAGNOSIS: #1 AV fistula malfunction, right transposed basilic. 2. End-stage renal disease on hemodialysis. 3. Diabetes mellitus type 2. 4. Hypertension. POSTOPERATIVE DIAGNOSIS: #1 AV fistula malfunction, right transposed basilic. 2. End-stage renal disease on hemodialysis. 3. Diabetes mellitus type 2. 4. Hypertension. OPERATION: 1. Needle access into the fistula. 2. Fistula angioplasty. 3. Fistula drug-eluting angioplasty. 4. Angiogram and interpretation. SURGEON: FREDO BULL NUCLEAR INSTRUCTOR: None. ANESTHESIA: Moderate Sedation TISSUE REMOVED OR ALTERED: Not applicable. COMPLICATIONS: None. ESTIMATED BLOOD LOSS: 2 mL. INTRAOPERATIVE FINDINGS: Of a very firm fistula with concordant findings of a tight area of stenosis representing about a 70% narrowing extending for about 5 cm in mid arm. Angioplasty with an 8 mm balloon produced resolution with much improvement in the quality of the fistula. The rest of the fistula circuit seems satisfactory possibly slight narrowing in the superior vena cava but ce rtainly not hemodynamically of consequence. PROCEDURE: PROCEDURE: After verifying the procedure and having obtained informed consent, the patient's right arm was prepared with Chlorhexidine and draped out with sterile linen. Local anesthesia infiltrated. Percutaneous access into the fistula ,[ antegrade], obtained about [4 cm] from the arteriovenous anastomosis using a micro puncture needle followed by micro puncture wire and then a micro puncture catheter. A 0.035 [place] wire was inserted, and over this, a 6 [place] short introducer was placed.Angiogram demonstrated the aforementioned findings. Angioplasty was elected., this was followed by a [8 -mm] angioplasty balloon . Angioplasty was Done at the culprit area. Inflating using a 3 mils syringe for a minute at a time.]. With the improvement it was decided to use a drug-eluting balloon as this patient had returned to relatively soon after a similar angioplasty only a few months ago. An 8 mm drug-eluting balloon was now placed in the culprit area and inflated up to 12 ginette and sustained for 4 minutes. Completion angiogram demonstrated [satisfactory result]. The instrumentation was now withdrawn over hand pressure for 10 minutes . Dressings applied, procedure concluded. Exposure time: 0.5 minutes. Radiation: 12.47 mGy. Contrast: 25 mL of Omnipaque 300, low osmolality. DICTATING PHYSICIAN: FREDO CHARLES M.D. cc: FREDO CHARLES M.D. ([id number]) >>
[2019-08-16 12:33] VITALS: BP 148/64
--- NOTE | 2019-08-16 14:45 | RADIOLOGY REPORT (SQ) ---
EXAM DESCRIPTION: FISTULAGRAM W/PLASTY COMPLETED DATE/TIME: 08/16/2019 11:36 am REASON FOR STUDY: T82.858A T82.858A STENOSIS OF OTHER VASCULAR PROSTH DEV/GRFT, INIT COMPARISON: None. FLUOROSCOPY TIME: 0.5 minutes 83 images saved to PACS. TECHNIQUE: Intra-operative images acquired during surgical procedure to evaluate progress. NUMBER OF IMAGES: 83 LIMITATIONS: None. FINDINGS: Spot and cine fluoroscopic images from right upper extremity dialysis graft angiography an d angioplasty. IMPRESSION: IMAGE(S) OBTAINED DURING PROCEDURE. COMMENT: Quality ID [id number]: Final reports for procedures using fluoroscopy that document radiation exp osure indices, or exposure time and number of fluorographic images (if radiation exposure indices are not available) Please consult full operative report of the attending physician for description of the procedure. TECHNICAL DOCUMENTATION: JOB ID: [id number] [employer]- All Rights Reserved Reading location - IP/workstation name: [email or web address]
== END 2019-08-16 13:05 | disposition home or self-care (01) ==
LOC: CCL 08:42
PROVIDERS: ATTEND Surgery
DX: T82.858A Stenosis of other vascular prosthetic devices, implants and grafts, initial encounter (principal); Y83.2 Surgical operation with anastomosis, bypass or graft as the cause of abnormal reaction of the patient, or of later complication, without mention of misadventure at the time of the procedure; E11.22 Type 2 diabetes mellitus with diabetic chronic kidney disease; I12.0 Hypertensive chronic kidney disease with stage 5 chronic kidney disease or end stage renal disease; N18.6 End stage renal disease; Z99.2 Dependence on renal dialysis; Z79.84 Long term (current) use of oral hypoglycemic drugs; Z79.4 Long term (current) use of insulin; Z88.8 Allergy status to other drugs, medicaments and biological substances; I25.10 Atherosclerotic heart disease of native coronary artery without angina pectoris; E78.00 Pure hypercholesterolemia, unspecified; D64.9 Anemia, unspecified; M47.892 Other spondylosis, cervical region; M47.899 Other spondylosis, site unspecified
CPT/HCPCS: 36415; 85027; 80048; 36902; C1725; C2623; C1752; Q9967; C1769; J2250; J1644 ×2; A9270 ×2; J3010; J3490

== ENCOUNTER 2020-03-15 13:38 | Emergency (ER) | payer MEDICARE ==
[2020-03-15 13:53] VITALS: BP 204/183
--- NOTE | 2020-03-15 14:37 | ER Document Report ---
ED Medical Screen (RME) - General Chief Complaint: Fever Stated Complaint: FEVER,VOMITING Time Seen by Provider: 03/15/20 14:05 Primary Care Provider: ERICA MOONEY PA-C [Primary Care Provider] - Follow up as needed Mode of Arrival: Wheelchair Information source: Patient Notes: 69-year-old female presented to ED for temperature of 100.8. She states she has been vomiting x4 she has been incontinent of urine she is been coughing. She went to dialysis and they would not let her do the dialysis due to the elevated fever. She does get dialysis she is has a history of a stroke and high blood pressure and carpal tunnel. I have greeted and performed a rapid initial assessment of this patient. A comprehensive ED assessment and evaluation of the patient, analysis of test results and completion of medical decision making process will be conducted by an additional ED providers. TRAVEL OUTSIDE OF THE [place] IN LAST 30 DAYS: No - Related Data Allergies/Adverse Reactions: ephedrine Adverse Reaction (Verified 04/12/19 10:33) Hypertension Past Medical History - Past Medical History Cardiac Medical History: Reports: Hx Coronary Artery Disease - HIGH CHOL, Hx Hypercholesterolemia, Hx Hypertension - MEDICATED Denies: Hx Heart Attack Pulmonary Medical History: Denies: Hx Asthma, Hx Bronchitis - BRONCHITIS 07/31, Hx COPD, Hx Pneumonia Neurological Medical History: Denies: Hx Cerebrovascular Accident, Hx Seizures Endocrine Medical History: Reports: Hx Diabetes Mellitus Type 2 Renal/ Medical History: Denies: Hx Peritoneal Dialysis GI Medical History: Denies: Hx Hepatitis, Hx Hiatal Hernia, Hx Ulcer Musculoskeltal Medical History: Reports Hx Arthritis - NECK, BACK, Reports Hx Musculoskeletal Deformity, Reports Hx Musculoskeletal Trauma Psychiatric Medical History: Denies: Hx Depression Infectious Medical History: Denies: Hx Hepatitis Past Surgical History: Reports: Hx Appendectomy, Hx Breast Surgery - left lumpectomy. Denies: Hx Hysterectomy, Hx Mastectomy - NO RESTRICTIONS, Hx Open Heart Surgery, Hx Pacemaker - Immunizations Hx Diphtheria, Pertussis, Tetanus Vaccination: Yes - 2005 Physical Exam - Vital signs Vitals: Temp Pulse Resp BP Pulse Ox 98.9 F 72 16 204/183 H 100 03/15/20 13:51 03/15/20 13:51 03/15/20 13:51 03/15/20 13:51 03/15/20 13:51 Course - Vital Signs Vital signs: Temp Pulse Resp BP Pulse Ox 98.9 F 72 16 204/183 H 100 03/15/20 13:51 03/15/20 13:51 03/15/20 13:51 03/15/20 13:51 03/15/20 13:51 Doctor's Discharge - Discharge Referrals: ERICA MOONEY PA-C [Primary Care Provider] - Follow up as needed
--- NOTE | 2020-03-15 17:25 | RADIOLOGY REPORT (SQ) ---
EXAM DESCRIPTION: CHEST SINGLE VIEW IMAGES COMPLETED DATE/TIME: 03/15/2020 5:05 pm REASON FOR STUDY: cough fever COMPARISON: 11/01/2018 EXAM PARAMETERS: NUMBER OF VIEWS: One view. TECHNIQUE: Single frontal radiographic view of the chest acquired. RADIATION DOSE: NA LIMITATIONS: None. FINDINGS: LUNGS AND PLEURA: No opacities, masses or pneumothorax. No pleural effusion. MEDIASTINUM AND HILAR STRUCTURES: No masses. Contour normal. HEART AND VASCULAR STRUCTURES: The heart size is borderline. There is no christi pulmonary edema. BONES: No acute findings. HARDWARE: None in the chest. OTHER: No other significant finding. IMPRESSION: Borderline cardiomegaly without christi pulmonary edema. TECHNICAL DOCUMENTATION: JOB ID: [id number] 2010 [employer]- All Rights Reserved Reading location - IP/workstation name: [email or web address]
[2020-03-15 17:27] LABS: ABSOLUTE BASOPHILS # (AUTO) 0.1 10^3/uL (0.0-0.2); ABSOLUTE LYMPHOCYTES (AUTO) 1.2 10^3/uL (0.5-4.7); ABSOLUTE MONOCYTES (AUTO) 0.7 10^3/uL (0.1-1.4); ABSOLUTE NEUT (AUTO) 5.8 10^3/uL (1.7-8.2); BASOPHILS % (AUTO) 0.9 % (0-2); EOSINOPHILS % (AUTO) 0.1 % (0-6); HEMATOCRIT 33.8 % (36.0-47.0); HEMOGLOBIN 10.9 g/dL (12.0-15.5); MEAN CORPUSCULAR HEMOGLOBIN 28.7 pg (27.0-33.4); MEAN CORPUSCULAR HGB CONC 32.2 g/dL (32.0-36.0); MEAN CORPUSCULAR VOLUME 89 fl (80-97); MONOCYTES % (AUTO) 9.5 % (3-13); PLATELET COUNT 194 10^3/uL (150-450); RED BLOOD COUNT 3.79 10^6/uL (3.72-5.28); RED CELL DISTRIBUTION WIDTH 15.1 % (11.5-14.0); SEGMENTED NEUTROPHILS % (AUTO) 74.5 % (42-78); TOTAL CELLS COUNTED % (AUTO) 100 %; WHITE BLOOD COUNT 7.8 10^3/uL (4.0-10.5)
[2020-03-15 17:49] LABS: ALBUMIN 3.9 g/dL (3.5-5.0); ALKALINE PHOSPHATASE 177 U/L (38-126); ANION GAP 13 (5-19); ASPARTATE AMINO TRANSFERASE 23 U/L (14-36); BILIRUBIN,DIRECT 0.5 mg/dL (0.0-0.4); BILIRUBIN,TOTAL 0.9 mg/dL (0.2-1.3); BLOOD UREA NITROGEN 35 mg/dL (7-20); CALCIUM 9.5 mg/dL (8.4-10.2); CARBON DIOXIDE 28 mmol/L (22-30); CHLORIDE 91 mmol/L (98-107); GLUCOSE 388 mg/dL (75-110); POTASSIUM 4.7 mmol/L (3.6-5.0); TOTAL PROTEIN 6.6 g/dL (6.3-8.2)
[2020-03-15 17:58] LABS: APPEARANCE,URINE CLEAR; BILIRUBIN,URINE NEGATIVE (NEGATIVE); COLOR,URINE YELLOW; GLUCOSE, URINE >=500 mg/dL (NEGATIVE); KETONES,URINE NEGATIVE (NEGATIVE); LEUKOCYTE ESTERASE,URINE TRACE (NEGATIVE); NITRITE,URINE NEGATIVE (NEGATIVE); PROTEIN,URINE >=500 mg/dL (NEGATIVE); URINE SPECIFIC GRAVITY 1.014; UROBILINOGEN,URINE NEGATIVE mg/dL (<2.0)
--- NOTE | 2020-03-15 18:47 | ER Document Report ---
ED Medical Screen (RME) - General Chief Complaint: Fever Stated Complaint: FEVER,VOMITING Time Seen by Provider: 03/15/20 14:05 Primary Care Provider: ERICA MOONEY PA-C [ALLIED HEALTH PROFESSIONAL] - Follow up as needed Mode of Arrival: Wheelchair Information source: Patient Notes: ED Medical Screen (RME) - General Chief Complaint: Fever Stated Complaint: FEVER,VOMITING Time Seen by Provider: 03/15/20 14:05 Primary Care Provider: ERICA MOONEY PA-C [Primary Care Provider] - Follow up as needed Mode of Arrival: Wheelchair Information source: Patient Notes: 69-year-old female presented to ED for temperature of 100.8. She states she has been vomiting x4 she has been incontinent of urine she is been coughing. She went to dialysis and they would not let her do the dialysis due to the elevated fever. She does get dialysis she is has a history of a stroke and high blood pressure and carpal tunnel. MY NOTES 69-year-old female who gets her dialysis on Thursday and was 2.5 over yesterday and therefore was coming today to get more dialysis. She was feeling weak today with nausea and vomiting times for small amounts she reports. She denies any dysuria. She does have a IV in place per Marbella ZAPATA. Patient does admit to some cough and would like to get a coronavirus test. TRAVEL OUTSIDE OF THE [place] IN LAST 30 DAYS: No - HPI Onset: This morning Onset/Duration: Sudden, Persistent Quality of pain: No pain Severity: None Pain Level: 0 Associated Symptoms: Nausea, Vomiting, Weakness Exacerbated by: Movement, Deep breathing Relieved by: Denies Similar symptoms previously: Yes Recently seen / treated by doctor: Yes - Related Data Allergies/Adverse Reactions: ephedrine Adverse Reaction (Verified 04/12/19 10:33) Hypertension Past Medical History - General Information source: Patient - Social History Cigarette use (# per day): No Chew tobacco use (# tins/day): No Frequency of alcohol use: None Drug Abuse: None Family history: Reviewed & Not Pertinent - Past Medical History Cardiac Medical History: Reports: Hx Coronary Artery Disease - HIGH CHOL, Hx Hypercholesterolemia, Hx Hypertension - MEDICATED Denies: Hx Heart Attack Pulmonary Medical History: Denies: Hx Asthma, Hx Bronchitis - BRONCHITIS 07/31, Hx COPD, Hx Pneumonia Neurological Medical History: Denies: Hx Cerebrovascular Accident, Hx Seizures Endocrine Medical History: Reports: Hx Diabetes Mellitus Type 2 Renal/ Medical History: Denies: Hx Peritoneal Dialysis GI Medical History: Denies: Hx Hepatitis, Hx Hiatal Hernia, Hx Ulcer Musculoskeltal Medical History: Reports Hx Arthritis - NECK, BACK, Reports Hx M usculoskeletal Deformity, Reports Hx Musculoskeletal Trauma Psychiatric Medical History: Denies: Hx Depression Infectious Medical History: Denies: Hx Hepatitis Past Surgical History: Reports: Hx Appendectomy, Hx Breast Surgery - left lumpectomy. Denies: Hx Hysterectomy, Hx Mastectomy - NO RESTRICTIONS, Hx Open Heart Surgery, Hx Pacemaker - Immunizations Hx Diphtheria, Pertussis, Tetanus Vaccination: Yes - 2005 Review of Systems - Review of Systems Constitutional: No symptoms reported EENT: No symptoms reported Cardiovascular: No symptoms reported Respiratory: No symptoms reported Gastrointestinal: No symptoms reported Genitourinary: No symptoms reported Female Genitourinary: No symptoms reported Musculoskeletal: No symptoms reported Skin: No symptoms reported Hematologic/Lymphatic: No symptoms reported Neurological/Psychological: No symptoms reported Physical Exam - Vital signs Vitals: Temp Pulse Resp BP Pulse Ox 98.9 F 72 16 204/183 H 100 03/15/20 13:51 03/15/20 13:51 03/15/20 13:51 03/15/20 13:51 03/15/20 13:51 Interpretation: Hypertensive - HEENT Head: Normocephalic, Atraumatic Eyes: Normal Pupils: PERRL Pharynx: Normal Neck: Normal - Respiratory Respiratory status: No respiratory distress Chest status: Nontender Breath sounds: Normal Chest palpation: Normal - Cardiovascular Rhythm: Regular Heart sounds: Normal auscultation Murmur: No - Abdominal Inspection: Normal Distension: No distension Bowel sounds: Normal Tenderness: Nontender Organomegaly: No organomegaly - Rectal Hemorrhoids: Other - deferred - Genitourinary Biman[place] exam: Other - deferred - Back Back: Normal - Extremities General upper extremity: Normal inspection General lower extremity: Normal inspection - Neurological Neuro grossly intact: Yes Cognition: Normal Orientation: AAOx4 [place] Coma Scale Eye Opening: Spontaneous [place] Coma Scale Verbal: Oriented [place] Coma Scale Motor: Obeys Commands [place] Coma Scale Total: 15 Speech: Normal Motor strength normal: LUE, RUE, LLE, RLE Sensory: Normal - Psychological Associated symptoms: Normal affect - Skin Skin Temperature: Warm Skin Moisture: Dry Course - Vital Signs Vital signs: Temp Pulse Resp BP Pulse Ox 98.9 F 72 16 204/183 H 100 03/15/20 13:51 03/15/20 13:51 03/15/20 13:51 03/15/20 13:51 03/15/20 13:51 - Laboratory Result Diagrams: 03/15/20 17:10 03/15/20 17:10 Laboratory results interpreted by me: 03/15/20 03/15/20 03/15/20 17:10 17:10 17:30 Hgb 10.9 L Hct 33.8 L RDW 15.1 H Sodium 131.8 L Chloride 91 L BUN 35 H Creatinine 4.12 H Est GFR ( Amer) 13 L Est GFR (MDRD) Non-Af 11 L Glucose 388 H Direct Bilirubin 0.5 H Alkaline Phosphatase 177 H Lipase 384.3 H Urine Protein >=500 H Urine Glucose (UA) >=500 H Ur Leukocyte Esterase TRACE H - Diagnostic Test Radiology reviewed: Reports reviewed Doctor's Discharge - Discharge Clinical Impression: End-stage renal disease on hemodialysis, Weakness UTI (urinary tract infection) Qualifiers: Urinary tract infection type: acute cystitis Hematuria presence: without he maturia Qualified Code(s): N30.00 - Acute cystitis without hematuria Hypertension Qualifiers: Hypertension type: unspecified Qualified Code(s): I10 - Essential (primary) hypertension Condition: Good Instructions: Urinary Tract Infection ([facility]) Additional Instructions: Follow-up with personal doctor ; return to ER as needed ;encourage fluids up to 1/2 quart per day ; take medicines as directed Prescriptions: Levofloxacin [Levaquin 250 mg Tablet] 250 mg PO DAILY #6 tablet Referrals: ERICA MOONEY PA-C [ALLIED HEALTH PROFESSIONAL] - Follow up as needed
[2020-03-15] MEDS ORDERED: ONDANSETRON HCL INJ/PF 4 MG/2 ML SDV IV ONE (19:05)
[2020-03-15] MEDS ORDERED: NORMAL SALINE 250 ML IV ONE (19:05)
[2020-03-15] MEDS ORDERED: LEVOFLOXACIN 750 MG/D5W RTU 750 MG/150 ML RTUPB IV ONE (19:06)
[2020-03-15] MEDS ORDERED: CLONIDINE HCL 0.1 MG TABLET PO ONE (19:07)
== END 2020-03-15 21:15 | disposition home or self-care (01) ==
LOC: ER 13:38
DX: N30.00 Acute cystitis without hematuria (principal); R53.1 Weakness; I12.0 Hypertensive chronic kidney disease with stage 5 chronic kidney disease or end stage renal disease; E11.22 Type 2 diabetes mellitus with diabetic chronic kidney disease; N18.6 End stage renal disease; Z99.2 Dependence on renal dialysis; I25.10 Atherosclerotic heart disease of native coronary artery without angina pectoris; R32 Unspecified urinary incontinence; R05 Cough; R50.9 Fever, unspecified; R11.2 Nausea with vomiting, unspecified; Z20.828 Contact with and (suspected) exposure to other viral communicable diseases
CPT/HCPCS: 99284; 96375; 96365; 36415; 87040; 87070; 87086; 87880; 83690; 85025; 87077; 87088; 86308; 80053; 81001; 87186; 87150 ×26; 71045; U0003; A9270; J2405; J7050; J1956; C9803; 87635